=== PATIENT | female | born 1960 | race Caucasian/White ===

== ENCOUNTER → 2016-05-25 | Outpatient (REF) | payer MEDICARE, MEDICAID ==
[~2016-05-25] MED LIST: ADV250INH INH; ALLE10TA12 PO; CETI10TA PO; COUM1TAB17 PO; CRES20TA PO; DRIS50002 PO; EFFE75CA75 PO; LEVO150T7 PO; LEXA1TAB2 PO; LOVE0.8I3 SC; MAPA325T2 PO; MOME50SP; OMEP20CA3 PO; PRED10TA PO; SING10TA32 PO; TUMS500C PO; XANA0.25 PO; XOPEAER INH; ZANTTAB PO
[2016-05-25 17:03] LABS: CALCIUM LEVEL 8.5 MG/DL (8.5-10.1); CREATININE FOR GFR 1.07 MG/DL (0.55-1.02); GLOMERULAR FILTRATION RATE 56.3 (>51); MAGNESIUM LEVEL 2.1 MG/DL (1.8-2.4); POTASSIUM SERUM 3.7 MEQ/L (3.5-5.1)
== END ==
LOC: M LABDRAW1 16:36
PROVIDERS: ATTEND Physician Assistant Medical
DX: M62.838 Other muscle spasm (principal); Z79.01 Long term (current) use of anticoagulants
CPT/HCPCS: 36415; 80048; 83735; 85610; G0463

== ENCOUNTER → 2016-05-31 | Outpatient (CLI) | payer MEDICARE, MEDICAID ==
--- NOTE | 2016-06-03 06:28 | SLEEPCENT ---
DATE OF PROCEDURE: 05/31/2016 ORDERED BY: Dr. Fitzpatrick and Maricel Jaimes Nocturnal polysomnography was performed for the titration of pressure therapy in this patient with clinical diagnosis of obstructive sleep apnea syndrome confirmed by home testing revealing a respiratory event index of 32. For testing, the patient was fit with a ResMed Quattro full face mask of extra small size and 4 cm of water pressure were applied to the circuit and the lights were extinguished. 7 hours and 42 minutes of data were reviewed. There were 360 minutes of sleep identified. Sleep latency was prolonged at 68 minutes. Rapid eye movement (REM) latency was prolonged at 203. Sleep architecture improved with optimal pressure therapy with a prolonged period of REM late in the study. Overall sleep efficiency was 79%. The patient's electrocardiogram (EKG) showed a sinus rhythm with an average heart rate of 78 beats per minute. Electroencephalogram (EEG) showed mild background coarsening, no focal events, normal waveforms for awake and sleep. Respiratory events were fully palliated with CPAP at a pressure of +9. Remaining measures of sleep physiology were reasonably normal. Some background limb activity was noted however and limb movement arousal index remained elevated at 10.5. IMPRESSION: 1. Obstructive sleep apnea syndrome (G47.33). 2. Periodic limb movement disorder (G47.61). RECOMMENDATION: Nightly use of pressure therapy at 9 cm of water should be sufficient to address the patient's respiratory issues. If symptoms persist, interventions to reduce the frequency of arousals from limb activity may be helpful.
== END ==
LOC: M SLEEP 19:32
PROVIDERS: ATTEND Nurse Practitioner Adult Health
DX: G47.33 Obstructive sleep apnea (adult) (pediatric) (principal)

== ENCOUNTER → 2016-09-06 | Outpatient (CLI) | payer MEDICARE, MEDICAID ==
[~2016-09-06] VITALS: Ht 177.8 cm; Wt 136.1 kg
[~2016-09-06] MED LIST changes: +COUM1TAB19 PO; +ESCI20TA PO; +NS 1,000 ML IV SCH; +PRED1TABL PO; +PROPOFOL 200 MG/20 ML VIAL As Ordered ONE
--- NOTE | 2016-09-06 07:54 | ROOR ---
Patient Name: Carlos Saravia Procedure Date: 09/06/2016 7:29 AM Date of : 1960 Age: 56 Room: [facility] Gender: Female Note Status: Finalized Procedure: Colonoscopy to Cecum Indications: Colon cancer screening in patient at increased risk: Colorectal cancer in mother, Last colonoscopy: 2010 Providers: Doyle Quinn MD Referring MD: Graeme Fitzpatrick MD Requesting Provider: Medicines: Monitored Anesthesia Care Complications: No immediate complications. Procedure: Pre-Anesthesia Assessment: - The heart rate, respiratory rate, oxygen saturations, blood pressure, adequacy of pulmonary ventilation, and response to care were monitored throughout the procedure. The Colonoscope was introduced through the anus and advanced to the cecum, identified by appendiceal orifice and ileocecal valve. The colonoscopy was performed without difficulty. The patient tolerated the procedure well. The quality of the bowel preparation was fair. Findings: The perianal and digital rectal examinations were normal. Non-bleeding internal hemorrhoids were found during retroflexion. The hemorrhoids were small and Grade I (internal hemorrhoids that do not prolapse). Scattered small-mouthed diverticula were found in the recto-sigmoid colon, sigmoid colon and descending colon. The entire examined colon appeared normal on direct and retroflexion views. Impression: - Preparation of the colon was fair. - Non-bleeding internal hemorrhoids. - Diverticulosis in the recto-sigmoid colon, in the sigmoid colon and in the descending colon. - The entire examined colon is normal on direct and retroflexion views. - No specimens collected. - The exam was otherwise normal to the cecum. Recommendation: - Patient has a contact number available for emergencies. The signs and symptoms of potential delayed complications were discussed with the patient. Return to normal activities tomorrow. Written discharge instructions were provided to the patient. - High fiber diet. - Discharge patient to home. - Continue present medications. - Repeat colonoscopy in 5 years for screening purposes. - Return to referring physician. - The findings and recommendations were discussed with the patient's family. Doyle Quinn MD Doyle Quinn MD 09/06/2016 7:54:21 AM This report has been signed electronically. Number of Addenda: 0 Note Initiated On: 09/06/2016 7:29 AM Estimated Blood Loss: Estimated blood loss: none.
[2016-09-06 08:20] VITALS: BP 162/98
== END | disposition home or self-care (01) ==
LOC: M OPP 06:26
PROVIDERS: ATTEND Internal Medicine Gastroenterology
DX: Z12.11 Encounter for screening for malignant neoplasm of colon (principal); K64.0 First degree hemorrhoids; K57.30 Diverticulosis of large intestine without perforation or abscess without bleeding; E78.5 Hyperlipidemia, unspecified; Z86.718 Personal history of other venous thrombosis and embolism; Z86.711 Personal history of pulmonary embolism; I34.1 Nonrheumatic mitral (valve) prolapse; E03.9 Hypothyroidism, unspecified; K44.9 Diaphragmatic hernia without obstruction or gangrene; R12 Heartburn; M19.90 Unspecified osteoarthritis, unspecified site; M54.2 Cervicalgia; L50.9 Urticaria, unspecified; S81.001D Unspecified open wound, right knee, subsequent encounter; S81.002D Unspecified open wound, left knee, subsequent encounter; F41.9 Anxiety disorder, unspecified; F32.9 Major depressive disorder, single episode, unspecified; G43.909 Migraine, unspecified, not intractable, without status migrainosus; Z86.73 Personal history of transient ischemic attack (TIA), and cerebral infarction without residual deficits; Z78.0 Asymptomatic menopausal state; J45.909 Unspecified asthma, uncomplicated; G47.30 Sleep apnea, unspecified; R06.83 Snoring; R06.02 Shortness of breath; E66.9 Obesity, unspecified; Z87.442 Personal history of urinary calculi; R01.1 Cardiac murmur, unspecified; Z88.8 Allergy status to other drugs, medicaments and biological substances; Z91.040 Latex allergy status; Z88.0 Allergy status to penicillin; Z88.2 Allergy status to sulfonamides; Z88.1 Allergy status to other antibiotic agents; Z88.7 Allergy status to serum and vaccine; Z91.048 Other nonmedicinal substance allergy status; Z79.01 Long term (current) use of anticoagulants; Z79.899 Other long term (current) drug therapy; Z80.0 Family history of malignant neoplasm of digestive organs; Z80.3 Family history of malignant neoplasm of breast; Y93.9 Activity, unspecified; Y92.9 Unspecified place or not applicable; X58.XXXD Exposure to other specified factors, subsequent encounter; Y99.8 Other external cause status

== ENCOUNTER 2016-10-11 21:27 | Emergency (ER) | payer MEDICARE, MEDICAID ==
[~2016-10-11] VITALS: Ht 177.8 cm; Wt 136.3 kg
[~2016-10-11 21:27] MED LIST changes: +LEVAINH INH; -NS 1,000 ML IV SCH; -PRED10TA PO; +PRED10TA2 PO; -PROPOFOL 200 MG/20 ML VIAL As Ordered ONE; -XOPEAER INH
[2016-10-11] MEDS ORDERED: WARF05TA PO (21:44)
[2016-10-11 23:22] LABS: INR 1.91
--- NOTE | 2016-10-12 00:10 | REPUSA ---
Clinical history: Pain, swelling. Findings: There is extensive scattered thrombus throughout the left femoral popliteal venous system. Nonocclusive thrombus is seen in the left common femoral vein, extending into the greater saphenous v ein. There is partial occlusion of the left superficial femoral and popliteal veins. Impression: Scattered deep vein thrombosis throughout the left femoral popliteal venous system as described.
[2016-10-12 00:58] VITALS: BP 118/61
== END 2016-10-12 01:03 | disposition home or self-care (01) ==
LOC: M ED 22:26
DX: I82.413 Acute embolism and thrombosis of femoral vein, bilateral (principal); I10 Essential (primary) hypertension; E78.5 Hyperlipidemia, unspecified; K21.9 Gastro-esophageal reflux disease without esophagitis; J45.909 Unspecified asthma, uncomplicated; G47.30 Sleep apnea, unspecified; E66.9 Obesity, unspecified; Z86.718 Personal history of other venous thrombosis and embolism; Z79.01 Long term (current) use of anticoagulants; Z79.899 Other long term (current) drug therapy; Z88.0 Allergy status to penicillin; Z88.2 Allergy status to sulfonamides; Z88.1 Allergy status to other antibiotic agents; Z88.8 Allergy status to other drugs, medicaments and biological substances; Z91.09 Other allergy status, other than to drugs and biological substances

== ENCOUNTER → 2016-10-13 | Outpatient (REF) | payer MEDICARE, MEDICAID ==
[~2016-10-13] MED LIST changes: -LEVAINH INH; +PRED10TA PO; -PRED10TA2 PO; +WARF05TA PO; +XOPEAER INH
[2016-10-13 13:35] LABS: BASO % 0.5 % (0.0-1.0); EOS # 0.2 K/mm3 (0.0-0.50); EOS % 3.2 % (0.0-3.0); LARGE UNSTAINED CELL # 0.1 K/mm3 (0.0-0.4); LARGE UNSTAINED CELL % 1.4 % (0.0-4.0); LYMPH % 28.3 % (24.0-44.0); MEAN CORPUSCULAR HGB CONC 31.7 g/dl (32.0-36.5); MEAN CORPUSCULAR VOLUME 85.1 fl (80.0-96.0); MONO # 0.4 K/mm3 (0.0-0.8); MONO % 5.5 % (0.0-5.0); PLATELET COUNT, AUTOMATED 233 k/mm3 (150-450); WHITE BLOOD COUNT 6.6 K/mm3 (4.0-10.0)
[2016-10-13 14:01] LABS: ALBUMIN 3.2 GM/DL (3.2-5.2); ALBUMIN/GLOBULIN RATIO 0.97 (1.00-1.93); ALKALINE PHOSPHATASE 177 U/L (45-117); ALT/SGPT 39 U/L (12-78); ANION GAP 9 MEQ/L (8-16); AST/SGOT 45 U/L (15-37); BILIRUBIN,TOTAL 0.7 MG/DL (0.2-1.0); BLOOD UREA NITROGEN 8 MG/DL (7-18); CALCIUM LEVEL 8.7 MG/DL (8.5-10.1); CARBON DIOXIDE LEVEL 26 MEQ/L (21-32); CHLORIDE LEVEL 109 MEQ/L (98-107); CREATININE FOR GFR 0.91 MG/DL (0.55-1.02); FERRITIN 18 NG/ML (8-252); GLOMERULAR FILTRATION RATE > 60.0 (>51); GLUCOSE, FASTING 90 MG/DL (70-105); PERCENT SATURATION 11.9 % (13.2-37.4); POTASSIUM SERUM 3.9 MEQ/L (3.5-5.1); SODIUM LEVEL 144 MEQ/L (136-145); TOTAL IRON BINDING CAPACITY 411 UG/DL (250-450); TOTAL PROTEIN 6.5 GM/DL (6.4-8.2)
== END ==
LOC: M SFHCPLAZ 09:16
PROVIDERS: ATTEND Physician Assistant Medical
DX: Z51.81 Encounter for therapeutic drug level monitoring (principal); N18.3 Chronic kidney disease, stage 3 (moderate); E78.5 Hyperlipidemia, unspecified

== ENCOUNTER 2016-11-04 09:45 | Emergency (ER) | payer MEDICARE, MEDICAID ==
[~2016-11-04] VITALS: Ht 177.8 cm; Wt 130.9 kg
[~2016-11-04 09:45] MED LIST changes: +LEVAINH INH; -PRED10TA PO; +PRED10TA2 PO; -XOPEAER INH
[2016-11-04] MEDS ORDERED: EFFE75CA75 PO (10:09)
[2016-11-04] MEDS ORDERED: ASPIRIN 81 MG CHEW TABLET PO ONE (10:15)
[2016-11-04 10:31] LABS: BASO # 0.1 K/mm3 (0.0-0.2); BASO % 0.6 % (0.0-1.0); EOS # 0.2 K/mm3 (0.0-0.50); EOS % 2.1 % (0.0-3.0); LARGE UNSTAINED CELL # 0.1 K/mm3 (0.0-0.4); LARGE UNSTAINED CELL % 1.4 % (0.0-4.0); LYMPH # 2.3 K/mm3 (1.5-4.5); LYMPH % 25.1 % (24.0-44.0); MEAN CORPUSCULAR HEMOGLOBIN 27.1 pg (27.0-33.0); MEAN CORPUSCULAR HGB CONC 32.3 g/dl (32.0-36.5); MEAN CORPUSCULAR VOLUME 84.1 fl (80.0-96.0); MONO # 0.3 K/mm3 (0.0-0.8); MONO % 3.7 % (0.0-5.0); NEUTROPHILS # 6.2 K/mm3 (1.8-7.7); NEUTROPHILS % 67.1 % (36.0-66.0); PLATELET COUNT, AUTOMATED 263 k/mm3 (150-450); RED CELL DISTRIBUTION WIDTH 15.7 % (11.5-14.5); WHITE BLOOD COUNT 9.2 K/mm3 (4.0-10.0)
[2016-11-04 10:55] LABS: ANION GAP 8 MEQ/L (8-16); BLOOD UREA NITROGEN 14 MG/DL (7-18); CARBON DIOXIDE LEVEL 27 MEQ/L (21-32); CHLORIDE LEVEL 106 MEQ/L (98-107); CREATININE FOR GFR 1.01 MG/DL (0.55-1.02); GLOMERULAR FILTRATION RATE > 60.0 (>51); GLUCOSE, FASTING 109 MG/DL (70-105); POTASSIUM SERUM 3.9 MEQ/L (3.5-5.1); SODIUM LEVEL 141 MEQ/L (136-145)
[2016-11-04 11:55] LABS: ALBUMIN 3.2 GM/DL (3.2-5.2); ALBUMIN/GLOBULIN RATIO 0.76 (1.00-1.93); ALKALINE PHOSPHATASE 219 U/L (45-117); ALT/SGPT 37 U/L (12-78); AST/SGOT 34 U/L (15-37); BILIRUBIN,DIRECT 0.1 MG/DL (0.0-0.2); BILIRUBIN,TOTAL 0.4 MG/DL (0.2-1.0); INR 1.51; TOTAL PROTEIN 7.4 GM/DL (6.4-8.2)
--- NOTE | 2016-11-04 11:56 | REP ---
Portable chest x-ray: Sitting AP view. History: Chest pain. Findings: EKG monitoring electrodes overlie the chest. The lungs are symmetrically aerated and clear. The pleural angles are sharp. Heart size is normal. Pulmonary vasculature is not increased. No significant bony abnormality is seen. Impression: Unremarkable sitting portable chest. Signed by Hadley Mcgarry MD 11/04/2016 12:31 P
--- NOTE | 2016-11-04 12:27 | REP ---
Right upper quadrant sonography: History: However quadrant pain. Comparison study: No comparison sonography. Findings: Scanning through the right upper quadrant of the abdomen demonstrates a normal sized, thin-walled gallbladder without evidence of stone or polyp. Common bile duct is normal measuring 0.4 cm in greatest diameter. No focal liver lesion is seen. There is evidence of mild fatty infiltration of the liver. Liver size is normal. On somewhat limited views, no pancreatic abnormality is observed. No right renal abnormality is seen. There is no evidence of ascites. The right kidney measures 9.4 x 5.7 x 4.4 cm. Impression: Evidence of fatty infiltration of the liver, otherwise negative right upper quadrant sonography. Signed by Hadley Mcgarry MD 11/04/2016 12:19 P
[2016-11-04] MEDS ORDERED: ACETAMINOPHEN TAB 650MG DOSE (2X325MG) As Ordered ONE (12:28)
[2016-11-04] MEDS ORDERED: ACETAMINOPHEN TAB 650MG DOSE (2X325MG) PO ONE (12:30)
[2016-11-04] MEDS ORDERED: ISOVUE-370 76% 100ML VIAL (Q9967) As Ordered ONE (13:26)
--- NOTE | 2016-11-04 14:18 | REP ---
CT ANGIOGRAM OF THE CHEST: TECHNIQUE: Axial contrast enhanced images from the thoracic inlet to the upper abdomen using 100 mL Isovue 370 intravenous contrast material with multiplanar reformations. I do not see evidence of a pulmonary embolism. There is no thoracic aortic aneurysm or dissection. No mediastinal or hilar adenopathy is seen. The heart is normal in size. There is no pericardial effusion. There is a small right pleural effusion. Focal posteriorly located subpleural parenchymal opacity in the right upper lobe measures approximately 1.6 cm in diameter. I suspect this represents an area of infiltrate. Nonspecific mild hazy diffuse ground-glass opacity is seen throughout both lungs. There is a calcified granuloma in the left lower lobe. There is a small hiatal hernia. Other visualized upper abdominal structures are unremarkable. IMPRESSION: No CT evidence of pulmonary embolism. Focal somewhat rounded ill-defined parenchymal opacity in the right upper lobe posteriorly, probably represents a focal infiltrate 1.6 cm in diameter. However followup is recommended to rule out a mass. There is a small right effusion. There is a small hiatal hernia. Signed by Rene Tavarez MD 11/04/2016 05:25 P
[2016-11-04 16:06] VITALS: BP 123/75
--- NOTE | 2016-11-04 21:32 | ECGEPIP ---
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
== END 2016-11-04 16:08 | disposition home or self-care (01) ==
LOC: M ED 09:45
DX: R07.9 Chest pain, unspecified (principal); R06.02 Shortness of breath; Z77.22 Contact with and (suspected) exposure to environmental tobacco smoke (acute) (chronic)
CPT/HCPCS: 71010; 71275; 76705; 80048; 80076; 82550; 82553; 83690; 83880; 84484; 85025; 85610; 93005; 93041; 94760; 99285; Q9967

== ENCOUNTER → 2016-11-08 | Outpatient (REF) | payer MEDICARE, MEDICAID ==
[2016-11-08 16:13] LABS: BASO % 0.3 % (0.0-1.0); EOS # 0.2 K/mm3 (0.0-0.50); EOS % 2.1 % (0.0-3.0); LARGE UNSTAINED CELL # 0.1 K/mm3 (0.0-0.4); LARGE UNSTAINED CELL % 1.3 % (0.0-4.0); LYMPH # 2.6 K/mm3 (1.5-4.5); MEAN CORPUSCULAR HEMOGLOBIN 26.8 pg (27.0-33.0); MEAN CORPUSCULAR HGB CONC 31.4 g/dl (32.0-36.5); MEAN CORPUSCULAR VOLUME 85.4 fl (80.0-96.0); MONO # 0.4 K/mm3 (0.0-0.8); MONO % 4.4 % (0.0-5.0); NEUTROPHILS # 5.1 K/mm3 (1.8-7.7); NEUTROPHILS % 60.9 % (36.0-66.0); PLATELET COUNT, AUTOMATED 292 k/mm3 (150-450); RED CELL DISTRIBUTION WIDTH 15.6 % (11.5-14.5); RETIC HEMOGLOBIN CONTENT CHr 27.7 PG (24-36); RETICULOCYTE ABSOLUTE ADVIA212 93 x10(9)/L (17-77); WHITE BLOOD COUNT 8.3 K/mm3 (4.0-10.0)
[2016-11-08 16:17] LABS: INR 1.92
[2016-11-08 16:29] LABS: FERRITIN 16 NG/ML (8-252); FREE T4 1.11 NG/DL (0.76-1.46); PERCENT SATURATION 11.2 % (13.2-37.4); TOTAL IRON BINDING CAPACITY 394 UG/DL (250-450); TOTAL PROTEIN 6.6 GM/DL (6.4-8.2)
[2016-11-09 13:02] LABS: ALBUMIN 3.35 GM/DL (3.29-5.55); ALBUMIN % 50.7 % (55.8-66.1); GAMMA GLOBULIN % 11.2 % (11.1-18.8)
[2016-11-10 14:15] LABS: H PYLORI SERUM QUANT IgG ABY <0.9 U/mL (0.0-0.8)
== END ==
LOC: M LABDRAW1 15:34
PROVIDERS: ATTEND Family Medicine
DX: D50.9 Iron deficiency anemia, unspecified (principal); E03.9 Hypothyroidism, unspecified; R73.01 Impaired fasting glucose; Z51.81 Encounter for therapeutic drug level monitoring; Z79.01 Long term (current) use of anticoagulants
CPT/HCPCS: 36415; 82728; 83036; 83550; 84165; 84439; 84443; 85025; 85046; 85610; 85730; 86256; 86677; G0463

== ENCOUNTER → 2016-12-09 | Outpatient (CLI) | payer MEDICARE, MEDICAID ==
--- NOTE | 2016-12-09 17:35 | REP ---
BILATERAL MAMMOGRAM: Family history of breast cancer in sister. MLO and CC views of both breasts were performed. I suspect multiple clustered pleomorphic microcalcifications in the upper and inner right breast. No other mass or clustered microcalcifications are seen bilaterally. IMPRESSION: There appear to be clustered microcalcifications in the upper inner right breast. Recommend magnification views to further evaluate. ACR 0 incomplete. BI-RADS/ACR category 0 mammogram, incomplete. Additional imaging and/or prior images are needed before a final assessment can be assigned. This mammogram was interpreted with the aid of an FDA-approved computer-aided detection system. The patient states she had a clinical breast exam in 11/2016. The patient letter being requested is M0.
== END ==
LOC: M WHC 15:09
PROVIDERS: ATTEND Family Medicine
DX: R92.2 Inconclusive mammogram (principal); Z12.4 Encounter for screening for malignant neoplasm of cervix; Z80.41 Family history of malignant neoplasm of ovary; Z80.3 Family history of malignant neoplasm of breast; Z78.0 Asymptomatic menopausal state
CPT/HCPCS: 87624; G0101; G0123; G0202

== ENCOUNTER → 2016-12-09 | Outpatient (REF) | payer MEDICARE, MEDICAID | LOC: M SFHCWAGY 15:10 | PROVIDERS: ATTEND Nurse Practitioner Women's Health | DX: Z01.419 Encounter for gynecological examination (general) (routine) without abnormal findings (principal); Z11.51 Encounter for screening for human papillomavirus (HPV) | CPT/HCPCS: 87624; G0123 ==

== ENCOUNTER → 2016-12-20 | Outpatient (CLI) | payer MEDICARE, MEDICAID ==
--- NOTE | 2016-12-20 08:39 | REP ---
Digital diagnostic unilateral right breast mammography with CAD: History: Screening mammography December 09, 2016 is BIRADS category 0 because of a grouping of microcalcifications. Diagnostic imaging is recommended. Comparison is also made with mammography dated November 12, 2015, October 09, 2014. Mammographic findings: Magnified focal spot compression CC, true MLO, and MLO views of the right breast confirm the presence of a polymorphic grouping of microcalcifications in the superior and medial quadrant of the right breast. This is new. No soft tissue component is seen. Breast parenchyma is otherwise predominately fat replaced. Impression: BIRADS category 4 suspicious right breast mammography. Stereotactic needle biopsy recommended for grouping of microcalcifications in the superior and medial quadrant. BI-RADS/ACR category 4 mammogram. Suspicious abnormality - biopsy should be considered. Usually requires biopsy. This mammogram was interpreted with the aid of an FDA-approved computer-aided detection system. The patient states she had a clinical breast exam in November 2016 The patient letter being requested is M4. Signed by Hadley Mcgarry MD 12/20/2016 09:13 A
== END ==
LOC: M RAD 07:38
PROVIDERS: ATTEND Family Medicine
DX: R92.0 Mammographic microcalcification found on diagnostic imaging of breast (principal); Z51.81 Encounter for therapeutic drug level monitoring; Z79.01 Long term (current) use of anticoagulants
CPT/HCPCS: 85610; G0206; G0463

== ENCOUNTER → 2017-01-04 | Outpatient (REF) | payer MEDICARE, MEDICAID ==
[2017-01-04 13:46] LABS: INR 1.12
== END ==
LOC: M SFHCPLAZ 10:00
PROVIDERS: ATTEND Family Medicine
DX: Z86.711 Personal history of pulmonary embolism (principal); Z51.81 Encounter for therapeutic drug level monitoring

== ENCOUNTER → 2017-01-05 | Outpatient (CLI) | payer MEDICARE, MEDICAID ==
[~2017-01-05] MED LIST changes: +CHLOROPROCAINE 2 % INJ PRES.FREE 20 ML VIAL (J2400) SQ ONE
--- NOTE | 2017-01-05 13:35 | REP ---
DIGITAL DIAGNOSTIC UNILATERAL RIGHT BREAST MAMMOGRAPHY WITH CAD: HISTORY: Marker clip placement views status post stereotactic needle biopsy for microcalcification. Comparison mammography December 11, 2016. MAMMOGRAPHIC FINDINGS: CC and true MLO views of the right breast demonstrate that the marker clip is in good position adjacent to the remaining microcalcifications from the target grouping. IMPRESSION: Marker clip in good position. Signed by Hadley Mcgarry MD 01/05/2017 03:51 P
--- NOTE | 2017-01-05 13:54 | REP ---
SPECIMEN RADIOGRAPHY RIGHT BREAST: HISTORY: The patient is status post stereotactic needle biopsy procedure right breast for microcalcifications. Comparison mammography December 09 and December 20, 2016. FINDINGS: Specimen radiography demonstrates microcalcifications from the target grouping in four of the six removed specimens. IMPRESSION: Specimen radiography demonstrates microcalcifications from the target grouping. Signed by Hadley Mcgarry MD 01/05/2017 03:52 P
--- NOTE | 2017-01-06 15:14 | REP ---
STEREOTACTIC RIGHT BREAST BIOPSY The procedure was performed under the direct supervision of Dr. Mcgarry The patient has a history of and polymorphic grouping of microcalcifications in the superior and medial quadrant of the right breast seen on a previous mammogram dated 12/20/2016. The risks and benefits of the procedure were explained to the patient and informed consent was obtained. A cranial caudal approach was utilized. The calcifications were localized using stereotactic mammographic guidance. 2% Chloroprocaine was used as a local anesthetic. An 8 gauge, suction assisted Mammotome needle was inserted and 5 core biopsy samples were obtained. Specimen radiograph demonstrates the presence of calcifications to be within the specimen. A marker clip was placed at the biopsy site. The patient tolerated the procedure well and there were no immediate complications. After the appropriate amount of monitored convalescence, the patient was discharged from the department. Reviewed by SANNA Dietrich 01/06/2017 08:35 ASigned by Hadley Mcgarry MD 01/06/2017 03:05 P
== END ==
LOC: M RADPRO 12:21
PROVIDERS: ATTEND Physician Assistant Medical
DX: D24.1 Benign neoplasm of right breast (principal); Z85.828 Personal history of other malignant neoplasm of skin; Z88.1 Allergy status to other antibiotic agents; Z88.8 Allergy status to other drugs, medicaments and biological substances; Z88.5 Allergy status to narcotic agent; Z88.4 Allergy status to anesthetic agent; Z88.0 Allergy status to penicillin; Z88.7 Allergy status to serum and vaccine; Z88.2 Allergy status to sulfonamides; Z91.040 Latex allergy status; Z91.048 Other nonmedicinal substance allergy status; Z79.01 Long term (current) use of anticoagulants; Z79.899 Other long term (current) drug therapy
CPT/HCPCS: 19081; 88305; J2400

== ENCOUNTER → 2017-01-31 | Outpatient (REF) | payer MEDICARE, MEDICAID ==
[~2017-01-31] MED LIST changes: -CHLOROPROCAINE 2 % INJ PRES.FREE 20 ML VIAL (J2400) SQ ONE
[2017-01-31 13:43] LABS: BASO # 0.1 10^3/uL (0.0-0.2); BASO % 0.6 % (0.0-1.0); EOS # 0.1 10^3/uL (0.0-0.50); EOS % 1.8 % (0.0-3.0); IMMATURE GRANULOCYTE % 0.1 % (0-0); LYMPH # 3.1 10^3/uL (1.5-4.5); LYMPH % 39.9 % (24.0-44.0); MEAN CORPUSCULAR HEMOGLOBIN 25.1 pg (27.0-33.0); MEAN CORPUSCULAR HGB CONC 30.4 g/dl (32.0-36.5); MEAN CORPUSCULAR VOLUME 82.8 fl (80.0-96.0); MONO # 0.5 10^3/uL (0.0-0.8); MONO % 6.4 % (0.0-5.0); NEUTROPHILS % 51.2 % (36.0-66.0); PLATELET COUNT, AUTOMATED 279 10^3/uL (150-450); RED CELL DISTRIBUTION WIDTH 15.9 % (11.5-14.5); WHITE BLOOD COUNT 7.8 10^3/uL (4.0-10.0)
[2017-01-31 14:00] LABS: ALBUMIN 3.2 GM/DL (3.2-5.2); ALBUMIN/GLOBULIN RATIO 0.86 (1.00-1.93); ALKALINE PHOSPHATASE 229 U/L (45-117); ALT/SGPT 49 U/L (12-78); ANION GAP 9 MEQ/L (8-16); AST/SGOT 42 U/L (15-37); BILIRUBIN,TOTAL 0.5 MG/DL (0.2-1.0); BLOOD UREA NITROGEN 13 MG/DL (7-18); CALCIUM LEVEL 8.4 MG/DL (8.5-10.1); CARBON DIOXIDE LEVEL 26 MEQ/L (21-32); CHLORIDE LEVEL 107 MEQ/L (98-107); CREATININE FOR GFR 1.01 MG/DL (0.55-1.02); FERRITIN 11 NG/ML (8-252); GLOMERULAR FILTRATION RATE > 60.0 (>51); GLUCOSE, FASTING 86 MG/DL (70-105); POTASSIUM SERUM 3.9 MEQ/L (3.5-5.1); SODIUM LEVEL 142 MEQ/L (136-145); TOTAL IRON BINDING CAPACITY 394 UG/DL (250-450); TOTAL PROTEIN 6.9 GM/DL (6.4-8.2)
== END ==
LOC: M SFHCPLAZ 10:55
PROVIDERS: ATTEND Family Medicine
DX: E78.5 Hyperlipidemia, unspecified (principal); R73.01 Impaired fasting glucose; E55.9 Vitamin D deficiency, unspecified; Z79.899 Other long term (current) drug therapy; D50.9 Iron deficiency anemia, unspecified; Z86.711 Personal history of pulmonary embolism

== ENCOUNTER → 2017-02-06 | Outpatient (CLI) | payer MEDICARE, MEDICAID ==
[~2017-02-06] MED LIST changes: +ISOVUE-370 76% 100ML VIAL (Q9967) As Ordered ONE
--- NOTE | 2017-02-06 11:20 | REP ---
CT CHEST WITH IV CONTRAST: TECHNIQUE: Axial contrast enhanced images from the thoracic inlet to the upper abdomen using 100 mL Isovue 370 intravenous contrast material with multiplanar reformations. COMPARISON: 11/04/2016 Previously noted rounded opacity in the posterior right upper lobe has resolved, representing resolution of atelectasis or infiltrate. No suspicious nodule is seen in either lung. There is a tiny calcified granuloma in each lower lobe. Thoracic aorta is normal in caliber with no aneurysm. There is no cardiomegaly. There is no pleural or pericardial effusion. No mediastinal or hilar adenopathy is seen. There is a small hiatal hernia. IMPRESSION: No persistent opacity in the right upper lobe. Tiny calcified granuloma is seen in each lung base. There are also tiny calcified mediastinal lymph nodes present without suspicious adenopathy. Small hiatal hernia. Signed by Rene Tavarez MD 02/07/2017 07:50 P
== END ==
LOC: M RAD 08:26
PROVIDERS: ATTEND Family Medicine
DX: R91.1 Solitary pulmonary nodule (principal); K44.9 Diaphragmatic hernia without obstruction or gangrene
CPT/HCPCS: 71260; Q9967

== ENCOUNTER → 2017-03-27 | Outpatient (REF) | payer MEDICARE, MEDICAID ==
[~2017-03-27] MED LIST changes: -ISOVUE-370 76% 100ML VIAL (Q9967) As Ordered ONE
== END ==
LOC: M SFHCPLAZ 15:58
PROVIDERS: ATTEND Physician Assistant Medical
DX: Z51.81 Encounter for therapeutic drug level monitoring (principal); Z79.899 Other long term (current) drug therapy

== ENCOUNTER → 2017-04-06 | Outpatient (CLI) | payer MEDICARE, MEDICAID ==
--- NOTE | 2017-04-13 21:03 | SLEEPCENT ---
DATE OF PROCEDURE: 04/06/2017 ORDERING PROVIDER: Maricel Jaimes NP Nocturnal polysomnography was performed for retitration of pressure therapy in this patient with obstructive sleep apnea syndrome. For testing, a ResMed Air fit F10 full face mask of small size was used. 9 cm of water pressure was initially applied to the circuit and the lights were extinguished. 7 hours and 52 minutes of data were reviewed. There were 274 minutes of sleep identified. Sleep latency was prolonged at 71 minutes. Rapid eye movement (REM) latency was short at 36 minutes. Sleep architecture remains somewhat fragmented with poor progression with only 1 REM cycle noted. Overall sleep efficiency was 59.2%. Patient's EKG showed a sinus rhythm with an average heart rate of 72 beats per minute. EEG showed coarsening in background. No focal events were appreciated with some artifact and normal wave forms for wake and sleep stages. Respiratory events were found best palliated with CPAP at a pressure of +14. Some limb activity was noted. There were four trains of 30 events. Limb movement arousal index 16.6. IMPRESSION: 1. Obstructive sleep apnea syndrome (G47.33). 2. Periodic limb movement disorder (G47.61). Limb movement arousal index was 16.6. RECOMMENDATIONS: Nightly use of pressure therapy at 14 cm of water should be sufficient to address the patients respiratory events. Given the frequency of limb activity, interventions to reduce the frequency or arousal from limb movements may be necessary as well.
== END ==
LOC: M SLEEP 19:32
PROVIDERS: ATTEND Nurse Practitioner Adult Health
DX: G47.33 Obstructive sleep apnea (adult) (pediatric) (principal); G47.61 Periodic limb movement disorder

== ENCOUNTER → 2017-06-26 | Outpatient (REF) | payer MEDICARE, MEDICAID ==
[2017-06-26 11:39] LABS: BASO % 0.4 % (0.0-1.0); EOS # 0.1 10^3/uL (0.0-0.50); EOS % 1.2 % (0.0-3.0); HEMATOCRIT 40.6 % (36.0-47.0); HEMOGLOBIN 12.5 g/dl (12.0-16.0); IMMATURE GRANULOCYTE % 0.2 % (0-3.0); LYMPH # 3.2 10^3/uL (1.5-4.5); LYMPH % 37.8 % (24.0-44.0); MEAN CORPUSCULAR HEMOGLOBIN 25.6 pg (27.0-33.0); MEAN CORPUSCULAR HGB CONC 30.8 g/dl (32.0-36.5); MONO # 0.5 10^3/uL (0.0-0.8); MONO % 6.1 % (0.0-5.0); NEUTROPHILS # 4.7 10^3/uL (1.8-7.7); NEUTROPHILS % 54.3 % (36.0-66.0); PLATELET COUNT, AUTOMATED 245 10^3/uL (150-450); RED BLOOD COUNT 4.89 10^6/uL (4.00-5.40); RED CELL DISTRIBUTION WIDTH 15.9 % (11.5-14.5); WHITE BLOOD COUNT 8.6 10^3/uL (4.0-10.0)
[2017-06-26 12:24] LABS: PTH INTACT 99.5 PG/ML (18.5-88.0); TOTAL 25(OH) VITAMIN D 59.7 NG/ML (30.0-100.0); VITAMIN B12 LEVEL 268 PG/ML (247-911)
[2017-06-26 12:31] LABS: ALBUMIN 3.4 GM/DL (3.2-5.2); ALBUMIN/GLOBULIN RATIO 1.03 (1.00-1.93); ALKALINE PHOSPHATASE 214 U/L (45-117); ALT/SGPT 26 U/L (12-78); ANION GAP 7 MEQ/L (8-16); AST/SGOT 23 U/L (7-37); BILIRUBIN,TOTAL 0.5 MG/DL (0.2-1.0); BLOOD UREA NITROGEN 9 MG/DL (7-18); CALCIUM LEVEL 8.5 MG/DL (8.5-10.1); CARBON DIOXIDE LEVEL 29 MEQ/L (21-32); CHLORIDE LEVEL 109 MEQ/L (98-107); CREATININE FOR GFR 0.87 MG/DL (0.55-1.30); FREE T4 0.85 NG/DL (0.76-1.46); GLOMERULAR FILTRATION RATE > 60.0 (>51); GLUCOSE, FASTING 89 MG/DL (70-100); SODIUM LEVEL 145 MEQ/L (136-145); TOTAL PROTEIN 6.7 GM/DL (6.4-8.2)
[2017-06-26 12:49] LABS: INR 2.84; PROTHROMBIN TIME 31.1 SECONDS (12.4-14.5)
[2017-06-26 14:13] LABS: ESTIMATED AVERAGE GLUCOSE 114 MG/DL (60-110); HEMOGLOBIN A1c 5.6 %
== END ==
LOC: M SFHCPLAZ 09:40
DX: D50.9 Iron deficiency anemia, unspecified (principal); N18.3 Chronic kidney disease, stage 3 (moderate); E03.9 Hypothyroidism, unspecified; R73.01 Impaired fasting glucose
CPT/HCPCS: 84443

== ENCOUNTER → 2017-08-01 | Outpatient (REF) | payer MEDICARE, MEDICAID ==
[2017-08-08 10:57] LABS: UR KIDNEY STONE INTERP See Separate Report
== END ==
LOC: M SFHCPLAZ 11:12
DX: G56.01 Carpal tunnel syndrome, right upper limb (principal)
CPT/HCPCS: 82140

== ENCOUNTER → 2017-09-05 | Outpatient (REF) | payer MEDICARE, MEDICAID ==
[2017-09-05 11:58] LABS: INR 1.72; PROTHROMBIN TIME 20.7 SECONDS (12.4-14.5)
[2017-09-05 12:13] LABS: FREE T4 1.49 NG/DL (0.76-1.46)
== END ==
LOC: M SFHCPLAZ 09:33
DX: Z51.81 Encounter for therapeutic drug level monitoring (principal); G56.01 Carpal tunnel syndrome, right upper limb; Z79.01 Long term (current) use of anticoagulants
CPT/HCPCS: 84443

== ENCOUNTER → 2017-09-12 | Outpatient (CLI) | payer MEDICARE, MEDICAID | LOC: M RAD 15:17 | DX: N20.0 Calculus of kidney (principal) | CPT/HCPCS: 74176 ==

== ENCOUNTER → 2017-10-03 | Outpatient (REF) | payer MEDICARE, MEDICAID ==
[2017-10-03 12:16] LABS: INR 2.21; PROTHROMBIN TIME 25.3 SECONDS (12.4-14.5)
== END ==
LOC: M SFHCPLAZ 09:17
DX: Z51.81 Encounter for therapeutic drug level monitoring (principal)
CPT/HCPCS: 85610

== ENCOUNTER → 2017-10-06 | Outpatient (CLI) | payer MEDICARE, MEDICAID | LOC: M RAD 10:16 | DX: I82.412 Acute embolism and thrombosis of left femoral vein (principal); I82.432 Acute embolism and thrombosis of left popliteal vein; M71.22 Synovial cyst of popliteal space [Baker], left knee; R60.0 Localized edema | CPT/HCPCS: 93971 ==

== ENCOUNTER → 2017-10-06 | Outpatient (CLI) | payer MEDICARE, MEDICAID ==
[2017-10-06 19:47] LABS: D-DIMER QUANT 563.9 ng/ml (<500)
== END ==
LOC: M WUC 18:10
DX: R60.0 Localized edema (principal)
CPT/HCPCS: 36415

== ENCOUNTER → 2017-11-06 | Outpatient (REF) | payer MEDICARE, MEDICAID ==
[2017-11-06 15:59] LABS: BASO % 0.5 % (0.0-1.0); EOS # 0.1 10^3/uL (0.0-0.50); EOS % 1.5 % (0.0-3.0); HEMATOCRIT 39.9 % (36.0-47.0); HEMOGLOBIN 12.4 g/dl (12.0-15.5); IMMATURE GRANULOCYTE % 0.3 % (0-3.0); LYMPH # 3.2 10^3/uL (1.5-4.5); LYMPH % 40.7 % (24.0-44.0); MEAN CORPUSCULAR HEMOGLOBIN 25.9 pg (27.0-33.0); MEAN CORPUSCULAR HGB CONC 31.1 g/dl (32.0-36.5); MEAN CORPUSCULAR VOLUME 83.5 fl (80.0-96.0); MONO # 0.5 10^3/uL (0.0-0.8); MONO % 6.1 % (0.0-5.0); NEUTROPHILS % 50.9 % (36.0-66.0); PLATELET COUNT, AUTOMATED 249 10^3/uL (150-450); RED BLOOD COUNT 4.78 10^6/uL (4.00-5.40); RED CELL DISTRIBUTION WIDTH 15.1 % (11.5-14.5); RETIC HEMOGLOBIN EQUIVALENT 27.4 pg (24-36); RETICULOCYTE # 88.4 10^9/L (17-77); RETICULOCYTE % 1.9 % (0.5-1.5); WHITE BLOOD COUNT 7.8 10^3/uL (4.0-10.0)
[2017-11-06 16:14] LABS: PTH INTACT 100.8 PG/ML (18.5-88.0); TOTAL 25(OH) VITAMIN D 65.9 NG/ML (30.0-100.0)
[2017-11-06 16:17] LABS: INR 2.08; PROTHROMBIN TIME 23.8 SECONDS (12.1-14.4)
[2017-11-06 16:18] LABS: PARTIAL THROMBOPLASTIN TIME 34.7 SECONDS (25.4-37.6)
[2017-11-06 16:20] LABS: ALBUMIN 3.2 GM/DL (3.2-5.2); ALBUMIN/GLOBULIN RATIO 0.97 (1.00-1.93); ALKALINE PHOSPHATASE 232 U/L (45-117); ALT/SGPT 29 U/L (12-78); ANION GAP 11 MEQ/L (8-16); AST/SGOT 24 U/L (7-37); BILIRUBIN,TOTAL 0.5 MG/DL (0.2-1.0); BLOOD UREA NITROGEN 8 MG/DL (7-18); CALCIUM LEVEL 8.8 MG/DL (8.5-10.1); CARBON DIOXIDE LEVEL 24 MEQ/L (21-32); CHLORIDE LEVEL 109 MEQ/L (98-107); CHOLESTEROL LEVEL 156 MG/DL (<200); CPK CREATINE PHOSPHOKINASE 57 U/L (26-192); CREATININE FOR GFR 0.98 MG/DL (0.55-1.30); FREE T4 1.64 NG/DL (0.76-1.46); GLOMERULAR FILTRATION RATE > 60.0 (>51); GLUCOSE, FASTING 106 MG/DL (70-100); HDL CHOLESTEROL 50 MG/DL (>40); LDL CHOLESTEROL 71.6 MG/DL (<100); NON-HDL-C 106 MG/DL; POTASSIUM SERUM 3.6 MEQ/L (3.5-5.1); SODIUM LEVEL 144 MEQ/L (136-145); THYROID STIMULATING HORMONE 0.047 uIU/ML (0.358-3.740); TOTAL PROTEIN 6.5 GM/DL (6.4-8.2); TRIGLYCERIDES LEVEL 172 MG/DL (<150)
[2017-11-06 16:37] LABS: ESTIMATED AVERAGE GLUCOSE 108 MG/DL (60-110); HEMOGLOBIN A1c 5.4 %
== END ==
LOC: M SFHCPLAZ 11:12
DX: E53.8 Deficiency of other specified B group vitamins (principal); E78.5 Hyperlipidemia, unspecified; E55.9 Vitamin D deficiency, unspecified; R73.01 Impaired fasting glucose; Z86.711 Personal history of pulmonary embolism
CPT/HCPCS: 82550

== ENCOUNTER → 2017-11-27 | Outpatient (REF) | payer MEDICARE, MEDICAID ==
[2017-11-27 16:15] LABS: APPEARANCE, URINE CLOUDY (CLEAR); BACTERIA, URINE AUTO 1+ (NEGATIVE); BILIRUBIN, URINE AUTO NEGATIVE (NEGATIVE); BLOOD, URINE BLOOD 3+ (NEGATIVE); COLOR, URINE YELLOW (YELLOW); GLUCOSE, URINE (UA) AUTO NEGATIVE (NEGATIVE); KETONE, URINE AUTO NEGATIVE (NEGATIVE); LEUKOCYTE ESTERASE, URINE AUTO 2+ (NEGATIVE); MUCUS, URINE SMALL (NEGATIVE); NITRITE, URINE AUTO NEGATIVE (NEGATIVE); PROTEIN, URINE AUTO 1+ mg/dL (NEGATIVE); RBC, URINE AUTO 49 /HPF (0-3); SPECIFIC GRAVITY URINE AUTO 1.024 (1.002-1.035); SQUAMOUS EPITHELIAL CELL UR AU 5 /HPF (0-6); TRANSITIONAL EPITHELIAL AUTO <1 /HPF; UROBILINOGEN, URINE AUTO 0.2 mg/dL (0.0-2.0); WBC, URINE AUTO 88 /HPF (0-3)
== END ==
LOC: M LAB REF 15:45
DX: R73.01 Impaired fasting glucose (principal)
CPT/HCPCS: 81001

== ENCOUNTER 2017-11-29 03:02 | Emergency (ER) | payer MEDICARE, MEDICAID ==
[2017-11-29 04:53] LABS: KETONE, URINE AUTO RFX NEGATIVE (NEGATIVE); MUCUS, URINE RFX SMALL (NEGATIVE); NITRITE, URINE AUTO RFX NEGATIVE (NEGATIVE); RBC, URINE AUTO RFX TNTC /HPF (0-3); SPECIFIC GRAVITY UR AUTO RFX 1.023 (1.002-1.035); SQUAM EPITHELIAL CELL UR AURFX 15 /HPF (0-6)
[2017-11-29 04:55] LABS: LEUKOCYTE ESTERASE UR AUTO RFX 3+ (NEGATIVE); WBC, URINE AUTO RFX TNTC /HPF (0-3)
[2017-11-29] MEDS: NITROFURANTOIN (MACROBID) 100 MG CAP PO (05:23)
== END 2017-11-29 05:34 | disposition home or self-care (01) ==
LOC: M ED 03:02
DX: N30.91 Cystitis, unspecified with hematuria (principal); Z86.711 Personal history of pulmonary embolism; Z86.718 Personal history of other venous thrombosis and embolism; Z79.899 Other long term (current) drug therapy; Z79.01 Long term (current) use of anticoagulants; Z79.51 Long term (current) use of inhaled steroids; Z79.890 Hormone replacement therapy; Z88.0 Allergy status to penicillin; Z88.2 Allergy status to sulfonamides; Z88.8 Allergy status to other drugs, medicaments and biological substances; Z91.040 Latex allergy status
CPT/HCPCS: 81001

== ENCOUNTER → 2017-12-11 | Outpatient (CLI) | payer MEDICARE, MEDICAID | LOC: M WHC 10:03 | DX: Z12.31 Encounter for screening mammogram for malignant neoplasm of breast (principal); M85.80 Other specified disorders of bone density and structure, unspecified site; E55.9 Vitamin D deficiency, unspecified | CPT/HCPCS: 77067 ==

== ENCOUNTER → 2017-12-19 | Outpatient (CLI) | payer MEDICARE, MEDICAID | LOC: M RAD 11:52 | DX: R31.0 Gross hematuria (principal) | CPT/HCPCS: 76775 ==

== ENCOUNTER → 2018-03-13 | Outpatient (REF) | payer MEDICARE, MEDICAID ==
[2018-03-13 11:45] LABS: APPEARANCE, URINE HAZY (CLEAR); BACTERIA, URINE AUTO NEGATIVE (NEGATIVE); BILIRUBIN, URINE AUTO NEGATIVE (NEGATIVE); BLOOD, URINE BLOOD 1+ (NEGATIVE); COLOR, URINE YELLOW (YELLOW); GLUCOSE, URINE (UA) AUTO NEGATIVE (NEGATIVE); KETONE, URINE AUTO NEGATIVE (NEGATIVE); LEUKOCYTE ESTERASE, URINE AUTO TRACE (NEGATIVE); MUCUS, URINE SMALL (NEGATIVE); NITRITE, URINE AUTO NEGATIVE (NEGATIVE); PROTEIN, URINE AUTO NEGATIVE (NEGATIVE); RBC, URINE AUTO 3 /HPF (0-3); SPECIFIC GRAVITY URINE AUTO 1.016 (1.002-1.035); SQUAMOUS EPITHELIAL CELL UR AU 2 /HPF (0-6); UROBILINOGEN, URINE AUTO 0.2 mg/dL (0.0-2.0); WBC, URINE AUTO 5 /HPF (0-3)
[2018-03-13 11:49] LABS: BASO % 0.3 % (0.0-1.0); EOS # 0.1 10^3/uL (0.0-0.50); EOS % 1.6 % (0.0-3.0); HEMATOCRIT 40.9 % (36.0-47.0); HEMOGLOBIN 12.5 g/dl (12.0-15.5); IMMATURE GRANULOCYTE % 0.1 % (0-3.0); LYMPH % 45.6 % (24.0-44.0); MEAN CORPUSCULAR HEMOGLOBIN 25.7 pg (27.0-33.0); MEAN CORPUSCULAR HGB CONC 30.6 g/dl (32.0-36.5); MONO # 0.4 10^3/uL (0.0-0.8); NEUTROPHILS # 4.2 10^3/uL (1.8-7.7); NEUTROPHILS % 47.4 % (36.0-66.0); PLATELET COUNT, AUTOMATED 277 10^3/uL (150-450); RED BLOOD COUNT 4.87 10^6/uL (4.00-5.40); RED CELL DISTRIBUTION WIDTH 15.7 % (11.5-14.5); RETIC HEMOGLOBIN EQUIVALENT 26.2 pg (24-36); RETICULOCYTE # 81.8 10^9/L (17-77); RETICULOCYTE % 1.7 % (0.5-1.5); WHITE BLOOD COUNT 8.9 10^3/uL (4.0-10.0)
[2018-03-13 12:01] LABS: ALBUMIN 3.2 GM/DL (3.2-5.2); ALBUMIN/GLOBULIN RATIO 0.91 (1.00-1.93); ALKALINE PHOSPHATASE 224 U/L (45-117); ALT/SGPT 25 U/L (12-78); ANION GAP 11 MEQ/L (8-16); AST/SGOT 20 U/L (7-37); BILIRUBIN,TOTAL 0.5 MG/DL (0.2-1.0); BLOOD UREA NITROGEN 16 MG/DL (7-18); CALCIUM LEVEL 8.6 MG/DL (8.5-10.1); CARBON DIOXIDE LEVEL 24 MEQ/L (21-32); CHLORIDE LEVEL 108 MEQ/L (98-107); CREATININE FOR GFR 0.99 MG/DL (0.55-1.30); FREE T4 1.48 NG/DL (0.76-1.46); GLOMERULAR FILTRATION RATE > 60.0 (>51); GLUCOSE, FASTING 121 MG/DL (70-100); SODIUM LEVEL 143 MEQ/L (136-145); THYROID STIMULATING HORMONE 0.162 uIU/ML (0.358-3.740); TOTAL PROTEIN 6.7 GM/DL (6.4-8.2)
[2018-03-13 12:02] LABS: PROTHROMBIN TIME 28.4 SECONDS (12.1-14.4)
[2018-03-13 12:03] LABS: PARTIAL THROMBOPLASTIN TIME 39.8 SECONDS (25.4-37.6)
[2018-03-13 12:19] LABS: ESTIMATED AVERAGE GLUCOSE 117 MG/DL (60-110); HEMOGLOBIN A1c 5.7 %
== END ==
LOC: M SFHCPLAZ 09:16
DX: N18.3 Chronic kidney disease, stage 3 (moderate) (principal); E03.9 Hypothyroidism, unspecified; R73.01 Impaired fasting glucose; E53.8 Deficiency of other specified B group vitamins; Z86.711 Personal history of pulmonary embolism; R31.0 Gross hematuria
CPT/HCPCS: 83735

== ENCOUNTER → 2018-04-20 | Outpatient (REF) | payer MEDICARE, MEDICAID ==
[~2018-04-20] MED LIST changes: -DRIS50002 PO; +DRIS50003 PO; +EFFE75CA2 PO; -EFFE75CA75 PO; +MACR100C43 PO
== END ==
LOC: M SFHCPLAZ 13:47
PROVIDERS: ATTEND Family Medicine
DX: L57.0 Actinic keratosis (principal)
CPT/HCPCS: 11100; 88305; G0463

== ENCOUNTER → 2018-06-01 | Outpatient (REF) | payer MEDICARE, MEDICAID ==
[2018-06-01 13:31] LABS: INR 2.41; PROTHROMBIN TIME 26.7 SECONDS (12.1-14.4)
== END ==
LOC: M SFHCPLAZ 11:07
PROVIDERS: ATTEND Physician Assistant Medical
DX: Z51.81 Encounter for therapeutic drug level monitoring (principal); Z79.01 Long term (current) use of anticoagulants
CPT/HCPCS: 36415; 85610; G0463

== ENCOUNTER → 2018-09-20 | Outpatient (REF) | payer MEDICARE, MEDICAID ==
[~2018-09-20] MED LIST changes: -CRES20TA PO; +CRES20TA2 PO
[2018-09-20 13:42] LABS: INR 1.53; PROTHROMBIN TIME 18.6 SECONDS (12.1-14.4)
== END ==
LOC: M SFHCPLAZ 09:49
PROVIDERS: ATTEND Physician Assistant Medical
DX: Z79.01 Long term (current) use of anticoagulants (principal)

== ENCOUNTER → 2018-10-03 | Outpatient (CLI) | payer MEDICARE, MEDICAID ==
--- NOTE | 2018-10-03 15:07 | REP ---
AP AND LATERAL LEFT KNEE, TWO VIEWS: HISTORY: Acute pain. There is no acute fracture or dislocation. There is minimal narrowing of the medial knee joint space. Osteophytes are present on the tibia and patella. IMPRESSION: Degenerative change as described above. Electronically Signed by Jon Griggs MD 10/03/2018 03:27 P
== END ==
LOC: M SMT 14:41
PROVIDERS: ATTEND Physician Assistant Medical
DX: M17.12 Unilateral primary osteoarthritis, left knee (principal); M25.562 Pain in left knee
CPT/HCPCS: 73560; G0463

== ENCOUNTER → 2018-10-11 | Outpatient (REF) | payer MEDICARE, MEDICAID ==
[2018-10-11 12:47] LABS: BASO % 0.5 % (0.0-1.0); EOS # 0.1 10^3/uL (0.0-0.50); EOS % 1.6 % (0.0-3.0); HEMATOCRIT 41.7 % (36.0-47.0); HEMOGLOBIN 12.6 g/dl (12.0-15.5); LYMPH # 3.8 10^3/uL (1.5-4.5); LYMPH % 43.2 % (24.0-44.0); MEAN CORPUSCULAR HEMOGLOBIN 25.7 pg (27.0-33.0); MEAN CORPUSCULAR HGB CONC 30.2 g/dl (32.0-36.5); MEAN CORPUSCULAR VOLUME 85.1 fl (80.0-96.0); MONO # 0.4 10^3/uL (0.0-0.8); MONO % 4.3 % (0.0-5.0); NEUTROPHILS # 4.4 10^3/uL (1.8-7.7); NEUTROPHILS % 50.2 % (36.0-66.0); PLATELET COUNT, AUTOMATED 287 10^3/uL (150-450); WHITE BLOOD COUNT 8.7 10^3/uL (4.0-10.0)
[2018-10-11 12:59] LABS: INR 2.39; PROTHROMBIN TIME 25.9 SECONDS (11.8-14.0)
[2018-10-11 13:00] LABS: PARTIAL THROMBOPLASTIN TIME 33.7 SECONDS (25.0-38.4)
[2018-10-11 13:18] LABS: BILIRUBIN,TOTAL 0.4 MG/DL (0.2-1.0); CALCIUM LEVEL 8.7 MG/DL (8.5-10.1); CHOLESTEROL RISK RATIO 2.894 (<5); CREATININE FOR GFR 1.05 MG/DL (0.55-1.30); FREE T4 1.14 NG/DL (0.76-1.46); GLOMERULAR FILTRATION RATE 57.1 (>51); POTASSIUM SERUM 3.8 MEQ/L (3.5-5.1); PTH INTACT 239.1 PG/ML (18.5-88.0); THYROID STIMULATING HORMONE 0.637 uIU/ML (0.358-3.740); TOTAL 25(OH) VITAMIN D 59.3 NG/ML (30.0-100.0); TOTAL PROTEIN 6.6 GM/DL (6.4-8.2)
== END ==
LOC: M SFHCPLAZ 10:31
PROVIDERS: ATTEND Family Medicine
DX: D50.9 Iron deficiency anemia, unspecified (principal); E55.9 Vitamin D deficiency, unspecified; E03.9 Hypothyroidism, unspecified; E78.5 Hyperlipidemia, unspecified; Z86.711 Personal history of pulmonary embolism; Z79.01 Long term (current) use of anticoagulants

== ENCOUNTER → 2018-11-09 | Outpatient (CLI) | payer MEDICARE, MEDICAID ==
[~2018-11-09] MED LIST changes: -OMEP20CA3 PO; +OMEP20CA4 PO; +ZANT150T40 PO; -ZANTTAB PO
--- NOTE | 2018-11-09 20:52 | REP ---
MRI LEFT KNEE: TECHNIQUE: Axial proton density fat saturation, sagittal proton density T2 STIR, water excitation, coronal proton density, proton density fat saturation. There are tears of the anterior and posterior horns of the lateral meniscus. There is a tear of the posterior horn of the medial meniscus. The cruciate and collateral ligaments are intact. The extensor mechanism is intact. There is a cartilaginous defect centrally of the patella extending for a width of about 1.2 cm with fissuring undermining the central portion of the cartilage of both the medial and lateral patellar facets, with cartilaginous flaps both medially and laterally. There is moderate diffuse chondromalacia of the femoral condyles and tibial plateaus, both medially and laterally. I do not see significant marrow edema. There is a moderate joint effusion. There is an oval lobulated septated Swanson's cyst in the medial popliteal fossa having a craniocaudal length of approximately 5.2 cm, maximum AP thickness approximately 1.2 cm and maximum transverse dimension approximately 2.9 cm. IMPRESSION: There are tears of the anterior and posterior horns of the lateral meniscus as well as the posterior horn of the medial meniscus. The cruciate and collateral ligaments are intact. Focal central cartilaginous defect of the patella with a diameter 1.2 cm with undermining of the central aspect of the cartilage of both the medial and lateral patellar facets with cartilaginous flaps at these locations. Moderate diffuse chondromalacia of the femoral condyles and tibial plateaus. Moderate joint effusion. Septated Swanson's cyst. Electronically Signed by Rene Tavarez MD 11/11/2018 09:12 P
== END ==
LOC: M RAD 18:14
PROVIDERS: ATTEND Physician Assistant Medical
DX: M25.562 Pain in left knee (principal)

== ENCOUNTER → 2018-11-21 | Outpatient (RCR) | payer MEDICARE, MEDICAID | LOC: M PT 11-05 11:22 | PROVIDERS: ATTEND Physician Assistant Medical | DX: Z51.89 Encounter for other specified aftercare (principal); M25.562 Pain in left knee ==

== ENCOUNTER 2018-12-13 10:45 | Outpatient (RCR) | payer MEDICARE, MEDICAID | END 2018-12-22 | LOC: M PT 10:45 | PROVIDERS: ATTEND Physician Assistant Medical | DX: Z51.89 Encounter for other specified aftercare (principal); M25.562 Pain in left knee ==

== ENCOUNTER → 2018-12-20 | Outpatient (CLI) | payer MEDICARE, MEDICAID ==
--- NOTE | 2018-12-20 13:46 | REPMRS ---
Patient History The patient states she had a clinical breast exam in August 2018. Family history of endometrial cancer at age 50 or over and breast cancer at age 50 in sister, prostate cancer at age 68 in paternal uncle, colorectal cancer and ovarian cancer at age 50 or over in mother. Benign radio exam breast specimen of the right breast, January 05, 2017. Benign stereotatic loc for ea lesion of the right breast, January 05, 2017. No Hormone Replacement Therapy Digital Mammo Screening Bilat: December 20, 2018 - Exam #: [id number] Bilateral CC and MLO view(s) were taken. Technologist: Laura Duncan, Technologist Prior study comparison: December 11, 2017, bilateral digital woman screen mammo, performed at [facility]. December 20, 2016, right breast digital mammo diagnostic unilateral performed at [facility]. November 12, 2015, digital woman screen mammo, performed at [facility]. FINDINGS: There are scattered fibroglandular densities. There has been no change in the appearance of the mammogram from the prior studies. There is a mild amount of scattered fibroglandular density which is fairly symmetric. There is no interval development of dominant mass, architectural distortion, or grouped microcalcification suggestive of malignancy. 3-D tomosynthesis shows no additional findings. Assessment: BI-RADS/ACR category 1 mammogram. Negative Mammogram. Recommendation Breast MRI of both breasts in 6 months. Routine screening mammogram of both breasts in 1 year (for women over age 40). This patient's Lifetime Breast Cancer Risk is estimated at 27.6 %. Annual screening Breast MRI scanniing is recommended for patient's whose lifetime risk assessment is over 20%. This mammogram was interpreted with the aid of an FDA-approved computer-aided dectection system. Electronically Signed By: Aquilino Mcgarry MD 12/20/18 [id number]
== END ==
LOC: M RAD 10:49
PROVIDERS: ATTEND Family Medicine
DX: Z12.31 Encounter for screening mammogram for malignant neoplasm of breast (principal)

== ENCOUNTER → 2019-04-26 | Outpatient (CLI) | payer MEDICARE, MEDICAID ==
[~2019-04-26] MED LIST changes: +OMEP1CAP73 PO; -OMEP20CA4 PO; +POTA10808; +VITA500T40
--- NOTE | 2019-04-26 15:05 | REPPI ---
AC joint series: Two views. History: Arthralgia of the right AC joint. Findings: AP views of the AC joints are applied with and without axial weights. There is AC joint osteoarthritis bilaterally with mild spurring. No subluxation is seen. No bony destructive lesion or fracture is noted. The glenohumeral articulations are normally aligned. Impression: Mild bilateral AC joint osteoarthritis. No subluxation seen. Electronically Signed by Hadley Mcgarry MD 04/26/2019 03:57 P
== END ==
LOC: M PLAIMG 10:42
PROVIDERS: ATTEND Family Medicine
DX: M19.011 Primary osteoarthritis, right shoulder (principal); M25.511 Pain in right shoulder
CPT/HCPCS: 73050; G0463

== ENCOUNTER 2019-04-27 20:29 | Emergency (ER) | payer MEDICARE, MEDICAID ==
[~2019-04-27] VITALS: Ht 175.3 cm; Wt 131.8 kg
[~2019-04-27 20:29] MED LIST changes: +OMEP-172 PO; -OMEP1CAP73 PO; -POTA10808; -VITA500T40
[2019-04-27] MEDS ORDERED: POTA10808 (21:08)
[2019-04-27] MEDS ORDERED: VITA500T40 (21:08)
[2019-04-27] MEDS ORDERED: CAPSAICIN 0.025% CR 60 GM TOP STA (21:28)
--- NOTE | 2019-04-27 22:36 | REPVR ---
PROCEDURE INFORMATION: Exam: US Duplex Right Upper Extremity Veins, Limited Exam date and time: 04/27/2019 9:51 PM Age: 59 years old Clinical indication: Pain; Arm, upper; Right; Additional info: Laid on arm overnight, swelling, pain upper arm TECHNIQUE: Imaging protocol: Real-time Duplex ultrasound of the Right Upper Extremity with 2-D castellanos scale, color Doppler flow and spectral waveform analysis with image documentation. Limited exam focused on the right upper extremity veins. COMPARISON: No relevant prior studies available. FINDINGS: Right deep veins: Unremarkable. Axillary and brachial veins are patent throughout without thrombus. Normal Doppler waveforms. Normal compressibility and/or augmentation response. Visualized internal jugular and subclavian veins are patent. Right superficial veins: Unremarkable. Visualized cephalic and basilic veins are patent without thrombus. Soft tissues: Unremarkable. IMPRESSION: No DVT of the right upper extremity. Electronically signed by: Primitivo Aaron On 04/27/2019 22:36:01 PM
[2019-04-27 22:53] VITALS: BP 146/77
--- NOTE | 2019-04-28 06:02 | ECGEPIP ---
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
== END 2019-04-27 22:56 | disposition home or self-care (01) ==
LOC: M ED 20:29
DX: M25.511 Pain in right shoulder (principal); E11.9 Type 2 diabetes mellitus without complications; I10 Essential (primary) hypertension; J45.909 Unspecified asthma, uncomplicated; E78.5 Hyperlipidemia, unspecified; R51 Headache; E03.9 Hypothyroidism, unspecified; Z86.711 Personal history of pulmonary embolism; Z79.01 Long term (current) use of anticoagulants; Z79.899 Other long term (current) drug therapy; Z88.0 Allergy status to penicillin; Z88.8 Allergy status to other drugs, medicaments and biological substances; Z88.2 Allergy status to sulfonamides; Z88.5 Allergy status to narcotic agent; Z91.040 Latex allergy status; Z91.89 Other specified personal risk factors, not elsewhere classified; Z88.1 Allergy status to other antibiotic agents

== ENCOUNTER → 2019-06-04 | Outpatient (CLI) | payer MEDICARE, MEDICAID ==
[~2019-06-04] MED LIST changes: -OMEP-172 PO; +OMEP1CAP73 PO; +POTA10808; +VITA500T40
[2019-06-04 14:54] LABS: BASO # 0.1 10^3/uL (0.0-0.2); BASO % 0.8 % (0.0-1.0); EOS # 0.1 10^3/uL (0.0-0.5); EOS % 1.7 % (0.0-3.0); HEMATOCRIT 43.5 % (36.0-47.0); LYMPH % 38.5 % (24.0-44.0); MEAN CORPUSCULAR HEMOGLOBIN 25.7 pg (27.0-33.0); MEAN CORPUSCULAR HGB CONC 29.9 g/dl (32.0-36.5); MONO # 0.4 10^3/uL (0.0-0.8); MONO % 5.2 % (0.0-5.0); NEUTROPHILS # 4.2 10^3/uL (1.5-8.5); NEUTROPHILS % 53.7 % (36.0-66.0); PLATELET COUNT, AUTOMATED 258 10^3/uL (150-450); RED BLOOD COUNT 5.06 10^6/uL (4.00-5.40); WHITE BLOOD COUNT 7.8 10^3/uL (4.0-10.0)
[2019-06-04 15:03] LABS: INR 1.7; PROTHROMBIN TIME 19.7 SECONDS (11.8-14.0)
[2019-06-04 15:13] LABS: HEMOGLOBIN A1c 5.8 %
[2019-06-04 15:15] LABS: ALBUMIN 3.6 GM/DL (3.2-5.2); ALT/SGPT 28 U/L (12-78); BILIRUBIN,TOTAL 0.6 MG/DL (0.2-1.0); BLOOD UREA NITROGEN 19 MG/DL (7-18); CALCIUM LEVEL 9.8 MG/DL (8.8-10.2); CARBON DIOXIDE LEVEL 25 MEQ/L (21-32); CHLORIDE LEVEL 108 MEQ/L (98-107); CREATININE FOR GFR 1.11 MG/DL (0.55-1.30); FREE T4 0.86 NG/DL (0.76-1.46); GLOMERULAR FILTRATION RATE 53.4 (>45); GLUCOSE, FASTING 118 MG/DL (70-100); MAGNESIUM LEVEL 1.9 MG/DL (1.8-2.4); POTASSIUM SERUM 3.9 MEQ/L (3.5-5.1); SODIUM LEVEL 141 MEQ/L (136-145); TOTAL PROTEIN 6.7 GM/DL (6.4-8.2)
[2019-06-04 15:18] LABS: PTH INTACT 78.1 PG/ML (18.5-88.0); TOTAL 25(OH) VITAMIN D 82.4 NG/ML (30.0-100.0); VITAMIN B12 LEVEL > 2000 PG/ML (247-911)
== END ==
LOC: M PLALAB 12:30
PROVIDERS: ATTEND Family Medicine
DX: D50.9 Iron deficiency anemia, unspecified (principal); E03.9 Hypothyroidism, unspecified; E55.9 Vitamin D deficiency, unspecified; E53.8 Deficiency of other specified B group vitamins; R73.01 Impaired fasting glucose; M17.0 Bilateral primary osteoarthritis of knee; Z79.01 Long term (current) use of anticoagulants; Z79.899 Other long term (current) drug therapy

== ENCOUNTER → 2019-07-25 | Outpatient (REF) | payer MEDICARE, MEDICAID ==
[2019-07-25 15:11] LABS: INR 1.93; PROTHROMBIN TIME 21.9 SECONDS (11.8-14.0)
[2019-07-25 17:57] LABS: APPEARANCE, URINE TURBID (CLEAR); BACTERIA, URINE AUTO 1+ (NEGATIVE); BILIRUBIN, URINE AUTO NEGATIVE (NEGATIVE); BLOOD, URINE BLOOD NEGATIVE (NEGATIVE); CALCIUM OXALATE CRYSTALS LARGE; COLOR, URINE AMBER (YELLOW); GLUCOSE, URINE (UA) AUTO NEGATIVE (NEGATIVE); KETONE, URINE AUTO TRACE mg/dL (NEGATIVE); LEUKOCYTE ESTERASE, URINE AUTO 1+ (NEGATIVE); MUCUS, URINE MODERATE (NEGATIVE); NITRITE, URINE AUTO NEGATIVE (NEGATIVE); PROTEIN, URINE AUTO 1+ mg/dL (NEGATIVE); RBC, URINE AUTO 5 /HPF (0-3); RENAL EPITHELIAL CELLS 1 /HPF; SPECIFIC GRAVITY URINE AUTO 1.025 (1.002-1.035); SQUAMOUS EPITHELIAL CELL UR AU 18 /HPF (0-6); UROBILINOGEN, URINE AUTO 0.2 mg/dL (0.0-2.0); WBC, URINE AUTO 34 /HPF (0-3)
== END ==
LOC: M SFHCPLAZ 13:57
PROVIDERS: ATTEND Physician Assistant Medical
DX: R73.01 Impaired fasting glucose (principal); R30.0 Dysuria; Z51.81 Encounter for therapeutic drug level monitoring

== ENCOUNTER → 2019-08-01 | Outpatient (REF) | payer MEDICARE, MEDICAID ==
[2019-08-01 13:01] LABS: INR 1.81; PROTHROMBIN TIME 20.7 SECONDS (11.8-14.0)
== END ==
LOC: M PLALAB 10:43
PROVIDERS: ATTEND Physician Assistant Medical
DX: Z79.01 Long term (current) use of anticoagulants (principal)

== ENCOUNTER → 2019-08-08 | Outpatient (REF) | payer MEDICARE, MEDICAID ==
[2019-08-08 14:21] LABS: INR 2.24; PROTHROMBIN TIME 24.6 SECONDS (11.8-14.0)
== END ==
LOC: M PLALAB 13:17
PROVIDERS: ATTEND Physician Assistant Medical
DX: Z51.81 Encounter for therapeutic drug level monitoring (principal)

== ENCOUNTER → 2019-10-03 | Outpatient (REF) | payer MEDICARE, MEDICAID ==
[~2019-10-03] MED LIST changes: -MAPA325T2 PO; +MAPA325T8 PO
[2019-10-03 12:14] LABS: BASO % 0.4 % (0.0-1.0); EOS # 0.1 10^3/uL (0.0-0.5); EOS % 0.7 % (0.0-3.0); HEMATOCRIT 43.6 % (36.0-47.0); HEMOGLOBIN 13.4 g/dl (12.0-15.5); LYMPH # 3.6 10^3/uL (1.5-5.0); LYMPH % 33.8 % (24.0-44.0); MEAN CORPUSCULAR HEMOGLOBIN 25.5 pg (27.0-33.0); MEAN CORPUSCULAR HGB CONC 30.7 g/dl (32.0-36.5); MEAN CORPUSCULAR VOLUME 82.9 fl (80.0-96.0); MONO # 0.6 10^3/uL (0.0-0.8); MONO % 5.1 % (0.0-5.0); NEUTROPHILS # 6.4 10^3/uL (1.5-8.5); NEUTROPHILS % 59.7 % (36.0-66.0); PLATELET COUNT, AUTOMATED 296 10^3/uL (150-450); RED BLOOD COUNT 5.26 10^6/uL (4.00-5.40); WHITE BLOOD COUNT 10.8 10^3/uL (4.0-10.0)
[2019-10-03 12:22] LABS: INR 1.94; PROTHROMBIN TIME 21.9 SECONDS (11.8-14.0)
[2019-10-03 14:09] LABS: ALBUMIN 3.3 GM/DL (3.2-5.2); ALT/SGPT 23 U/L (12-78); BILIRUBIN,TOTAL 0.7 MG/DL (0.2-1.0); BLOOD UREA NITROGEN 19 MG/DL (7-18); CALCIUM LEVEL 8.7 MG/DL (8.8-10.2); CARBON DIOXIDE LEVEL 28 MEQ/L (21-32); CHLORIDE LEVEL 99 MEQ/L (98-107); CREATININE FOR GFR 1.35 MG/DL (0.55-1.30); GLOMERULAR FILTRATION RATE 42.6 (>45); GLUCOSE, FASTING 139 MG/DL (70-100); IRON (FE) 53 UG/DL (50-170); POTASSIUM SERUM 2.6 MEQ/L (3.5-5.1); PTH INTACT 264.7 PG/ML (18.5-88.0); SODIUM LEVEL 139 MEQ/L (136-145); TOTAL PROTEIN 6.6 GM/DL (6.4-8.2)
[2019-10-03 14:10] LABS: FREE T4 1.67 NG/DL (0.76-1.46); PERCENT SATURATION 11.8 % (13.2-45.0); TOTAL 25(OH) VITAMIN D 111.6 NG/ML (30.0-100.0); TOTAL IRON BINDING CAPACITY 448 UG/DL (250-450); TOTAL PROTEIN 6.6 GM/DL (6.4-8.2)
[2019-10-04 17:07] LABS: FREE KAPPA LIGHT CHAINS SERUM 19.4 mg/L (3.3-19.4); FREE LAMBDA LIGHT CHAINS SERUM 10.7 mg/L (5.7-26.3); INSULIN LEVEL 46.9 uIU/mL (2.6-24.9); KAPPA/LAMBDA RATIO SERUM 1.81 (0.26-1.65)
[2019-10-08 15:47] LABS: ALBUMIN 3.48 GM/DL (3.29-5.55); ALBUMIN % 52.8 % (55.8-66.1); ALPHA-1-GLOBULIN % 6.6 % (2.9-4.9); ALPHA-1-GLOBULINS 0.44 GM/DL (0.17-0.41); ALPHA-2-GLOBULINS 1.07 GM/DL (0.42-0.99); ALPHA-2-GLOBULINS % 16.2 % (7.1-11.8); BETA-1-GLOBULINS 0.53 GM/DL (0.28-0.60); BETA-1-GLOBULINS % 8.1 % (4.7-7.2); BETA-2-GLOBULINS 0.38 GM/DL (0.19-0.55); BETA-2-GLOBULINS % 5.8 % (3.2-6.5); GAMMA GLOBULIN % 10.5 % (11.1-18.8); GAMMA GLOBULINS 0.69 GM/DL (0.65-1.58)
== END ==
LOC: M PLALAB 10:17
PROVIDERS: ATTEND Family Medicine
DX: D50.9 Iron deficiency anemia, unspecified (principal); E55.9 Vitamin D deficiency, unspecified; R77.2 Abnormality of alphafetoprotein; E03.9 Hypothyroidism, unspecified; Z79.01 Long term (current) use of anticoagulants; R73.01 Impaired fasting glucose

== ENCOUNTER → 2019-10-10 | Outpatient (REF) | payer MEDICARE, MEDICAID ==
[2019-10-10 12:12] LABS: INR 2.24; PROTHROMBIN TIME 24.6 SECONDS (11.8-14.0)
[2019-10-10 12:56] LABS: ALBUMIN 3.1 GM/DL (3.2-5.2); CALCIUM LEVEL 9.3 MG/DL (8.8-10.2); CREATININE FOR GFR 1.25 MG/DL (0.55-1.30); GLOMERULAR FILTRATION RATE 46.5 (>45); MAGNESIUM LEVEL 2.2 MG/DL (1.8-2.4); POTASSIUM SERUM 2.8 MEQ/L (3.5-5.1)
== END ==
LOC: M PLALAB 10:10
PROVIDERS: ATTEND Family Medicine
DX: I10 Essential (primary) hypertension (principal); Z79.01 Long term (current) use of anticoagulants

== ENCOUNTER → 2019-10-17 | Outpatient (REF) | payer MEDICARE, MEDICAID ==
[2019-10-17 12:28] LABS: CREATININE FOR GFR 1.02 MG/DL (0.55-1.30); GLOMERULAR FILTRATION RATE 58.8 (>45); POTASSIUM SERUM 4.1 MEQ/L (3.5-5.1)
== END ==
LOC: M SFHCPLAZ 09:02
PROVIDERS: ATTEND Physician Assistant Medical
DX: E87.6 Hypokalemia (principal)
CPT/HCPCS: 36415; 80048; G0463

== ENCOUNTER → 2019-11-11 | Outpatient (REF) | payer MEDICARE, MEDICAID ==
[2019-11-11 13:15] LABS: INR 1.78; PROTHROMBIN TIME 20.5 SECONDS (11.8-14.0)
== END ==
LOC: M SFHCPLAZ 10:23
PROVIDERS: ATTEND Family Medicine
DX: R11.2 Nausea with vomiting, unspecified (principal); Z79.01 Long term (current) use of anticoagulants

== ENCOUNTER → 2019-12-04 | Outpatient (REF) | payer MEDICARE, MEDICAID ==
[2020-01-06 09:44] LABS: INR 1.86; PROTHROMBIN TIME 21.8 SECONDS (11.8-14.0)
== END ==
LOC: M SFHCPLAZ 09:17
PROVIDERS: ATTEND Physician Assistant Medical
DX: Z79.01 Long term (current) use of anticoagulants (principal)

== ENCOUNTER → 2019-12-12 | Outpatient (CLI) | payer MEDICARE, MEDICAID ==
[2019-12-12 14:47] LABS: INR 2.21
== END ==
LOC: M PLALAB 12:16
PROVIDERS: ATTEND Physician Assistant Medical
DX: Z86.711 Personal history of pulmonary embolism (principal)

== ENCOUNTER → 2019-12-27 | Outpatient (CLI) | payer MEDICARE, MEDICAID ==
[2019-12-27 14:47] LABS: INR 2.2; PROTHROMBIN TIME 24.9 SECONDS (11.8-14.0)
== END ==
LOC: M PLALAB 11:42
PROVIDERS: ATTEND Nurse Practitioner Family
DX: Z79.01 Long term (current) use of anticoagulants (principal); Z86.711 Personal history of pulmonary embolism

== ENCOUNTER → 2020-01-30 | Outpatient (CLI) | payer MEDICARE, MEDICAID ==
[2020-01-30 18:06] LABS: INR 2.45; PROTHROMBIN TIME 27.1 SECONDS (12.5-14.3)
== END ==
LOC: M PLALAB 14:34
PROVIDERS: ATTEND Nurse Practitioner Family
DX: Z79.01 Long term (current) use of anticoagulants (principal); Z86.711 Personal history of pulmonary embolism

== ENCOUNTER → 2020-02-26 | Outpatient (REF) | payer MEDICARE, MEDICAID ==
[2020-02-26 17:54] LABS: BASO # 0.1 10^3/uL (0.0-0.2); BASO % 0.7 % (0.0-1.0); EOS # 0.2 10^3/uL (0.0-0.5); EOS % 1.5 % (0.0-3.0); HEMATOCRIT 41.8 % (36.0-47.0); HEMOGLOBIN 12.2 g/dl (12.0-15.5); LYMPH # 4.4 10^3/uL (1.5-5.0); LYMPH % 39.8 % (24.0-44.0); MEAN CORPUSCULAR HGB CONC 29.2 g/dl (32.0-36.5); MEAN CORPUSCULAR VOLUME 85.7 fl (80.0-96.0); MONO # 0.6 10^3/uL (0.0-0.8); MONO % 5.1 % (0.0-5.0); NEUTROPHILS # 5.8 10^3/uL (1.5-8.5); NEUTROPHILS % 52.4 % (36.0-66.0); PLATELET COUNT, AUTOMATED 301 10^3/uL (150-450); RED BLOOD COUNT 4.88 10^6/uL (4.00-5.40)
[2020-02-26 18:06] LABS: INR 2.25; PARTIAL THROMBOPLASTIN TIME 35.4 SECONDS (24.2-38.5); PROTHROMBIN TIME 25.4 SECONDS (12.5-14.3)
[2020-02-26 19:14] LABS: HEMOGLOBIN A1c 5.7 %
[2020-02-26 20:26] LABS: ALBUMIN 3.3 GM/DL (3.2-5.2); BILIRUBIN,TOTAL 0.7 MG/DL (0.2-1.0); CALCIUM LEVEL 8.5 MG/DL (8.8-10.2); CHOLESTEROL RISK RATIO 2.575 (<5); CREATININE FOR GFR 1.07 MG/DL (0.55-1.30); FREE T4 1.04 NG/DL (0.76-1.46); GLOMERULAR FILTRATION RATE 55.7 (>45); POTASSIUM SERUM 3.9 MEQ/L (3.5-5.1); THYROID STIMULATING HORMONE 13.3 uIU/ML (0.358-3.740); TOTAL PROTEIN 6.4 GM/DL (6.4-8.2)
== END ==
LOC: M SFHCPLAZ 14:54
PROVIDERS: ATTEND Family Medicine
DX: E55.9 Vitamin D deficiency, unspecified (principal); E78.5 Hyperlipidemia, unspecified; E03.9 Hypothyroidism, unspecified; R73.01 Impaired fasting glucose; Z79.01 Long term (current) use of anticoagulants

== ENCOUNTER → 2020-03-11 | Outpatient (CLI) | payer MEDICARE, MEDICAID ==
[2020-03-11 14:18] LABS: RHEUMATOID FACTOR QUANT < 10.0 IU/ML (<15.0)
[2020-03-12 15:12] LABS: ANTINUCLEAR ANTIBODIES DIRECT Negative (Negative)
== END ==
LOC: M PLALAB 11:23
PROVIDERS: ATTEND Orthopaedic Surgery
DX: M65.842 Other synovitis and tenosynovitis, left hand (principal)

== ENCOUNTER → 2020-03-18 | Outpatient (CLI) | payer MEDICARE, MEDICAID ==
[~2020-03-18] MED LIST changes: +PROHANCE 279.3MG/ML 15ML VIAL As Ordered ONE
== END ==
LOC: M RAD 14:56
PROVIDERS: ATTEND Family Medicine
DX: Z12.31 Encounter for screening mammogram for malignant neoplasm of breast (principal); Z80.3 Family history of malignant neoplasm of breast

== ENCOUNTER → 2020-04-09 | Outpatient (CLI) | payer MEDICARE, MEDICAID ==
[~2020-04-09] MED LIST changes: -ESCI20TA PO; +ESCI20TA16 PO; -PROHANCE 279.3MG/ML 15ML VIAL As Ordered ONE
--- NOTE | 2020-04-13 11:45 | SLEEPCENT ---
NOCTURNAL POLYSOMNOGRAPHY CPAP TITRATION DATE: 04/09/2020 ORDERED BY: Jean Claude Soriano M.D. Nocturnal polysomnography was performed for retitration of pressure therapy in this patient with obstructive sleep apnea syndrome intolerant of CPAP. For testing a ResMed AirFit full face mask of small size was used. An initial pressure of 14 cm was applied to the circuit, and the lights were extinguished. Seven hours and 54 minutes of data were reviewed. There were 284 minutes of sleep identified. Sleep latency was mildly prolonged at 29.5 minutes. REM sleep was not achieved. Sleep architecture showed poor progression and periods of wake resulting in a reduced sleep efficiency of 60.9%. The electrocardiogram showed a sinus rhythm with an average heart rate of 85 beats per minute. EEG showed some alpha intrusion into non-REM stages. There were no focal events identified. Despite optimal mask fit and minimal air leak, the patient was changed to a BiLevel device. Multiple BiLevel pressures were applied with the emergence of some central apneas. Best sleep was seen at a BiLevel pressure 16/12. Still, the patient did not achieve REM sleep with some background limb activity with movement arousal index of 12. IMPRESSION: Obstructive sleep apnea syndrome (G47.33). RECOMMENDATION: Initiation of BiLevel pressure therapy at an inspiratory pressure of 16/expiratory pressure of 12 would appear best based on this stud. However, given the patient's poor sleep architecture, close clinical follow-up may be necessary. Dr. Fitzpatrick
== END ==
LOC: M SLEEP 20:00
PROVIDERS: ATTEND Internal Medicine Pulmonary Disease
DX: G47.33 Obstructive sleep apnea (adult) (pediatric) (principal)

== ENCOUNTER → 2020-04-10 | Outpatient (REF) | payer MEDICARE, MEDICAID ==
[~2020-04-10] MED LIST changes: +ESCI20TA PO; -ESCI20TA16 PO
[2020-04-10 10:57] LABS: BASO # 0.1 10^3/uL (0.0-0.2); BASO % 0.6 % (0.0-1.0); EOS # 0.2 10^3/uL (0.0-0.5); EOS % 1.5 % (0.0-3.0); HEMATOCRIT 41.1 % (36.0-47.0); HEMOGLOBIN 11.8 g/dl (12.0-15.5); LYMPH # 3.7 10^3/uL (1.5-5.0); LYMPH % 33.8 % (24.0-44.0); MEAN CORPUSCULAR HEMOGLOBIN 24.6 pg (27.0-33.0); MEAN CORPUSCULAR HGB CONC 28.7 g/dl (32.0-36.5); MEAN CORPUSCULAR VOLUME 85.6 fl (80.0-96.0); MONO # 0.7 10^3/uL (0.0-0.8); MONO % 6.6 % (0.0-5.0); NEUTROPHILS # 6.2 10^3/uL (1.5-8.5); NEUTROPHILS % 57.2 % (36.0-66.0); PLATELET COUNT, AUTOMATED 261 10^3/uL (150-450); WHITE BLOOD COUNT 10.8 10^3/uL (4.0-10.0)
[2020-04-10 11:06] LABS: INR 1.96; PROTHROMBIN TIME 22.8 SECONDS (12.5-14.3)
[2020-04-10 11:07] LABS: PARTIAL THROMBOPLASTIN TIME 33.1 SECONDS (24.2-38.5)
[2020-04-10 11:32] LABS: ALBUMIN 3.3 GM/DL (3.2-5.2); BILIRUBIN,TOTAL 0.4 MG/DL (0.2-1.0); CALCIUM LEVEL 8.7 MG/DL (8.8-10.2); CREATININE FOR GFR 1.11 MG/DL (0.55-1.30); FREE T4 1.02 NG/DL (0.76-1.46); GLOMERULAR FILTRATION RATE 53.2 (>45); POTASSIUM SERUM 3.8 MEQ/L (3.5-5.1); THYROID PEROXIDASE ANTIBODY 28.5 U/ML (<60.0); THYROID STIMULATING HORMONE 7.36 uIU/ML (0.358-3.740); TOTAL PROTEIN 6.8 GM/DL (6.4-8.2)
[2020-04-14 16:11] LABS: ANTI-MITOCHONDRIAL ANTIBODY <20.0 Units (0.0-20.0)
== END ==
LOC: M PLALAB 08:27
PROVIDERS: ATTEND Family Medicine
DX: R74.8 Abnormal levels of other serum enzymes (principal); D50.9 Iron deficiency anemia, unspecified; E03.9 Hypothyroidism, unspecified; Z79.01 Long term (current) use of anticoagulants; L50.8 Other urticaria

== ENCOUNTER → 2020-05-14 | Outpatient (REF) | payer MEDICARE, MEDICAID ==
[~2020-05-14] MED LIST changes: -ESCI20TA PO; +ESCI20TA16 PO
[2020-05-14 17:18] LABS: BASO # 0.1 10^3/uL (0.0-0.2); BASO % 0.5 % (0.0-1.0); EOS # 0.1 10^3/uL (0.0-0.5); HEMATOCRIT 46.2 % (36.0-47.0); HEMOGLOBIN 13.2 g/dl (12.0-15.5); LYMPH # 3.7 10^3/uL (1.5-5.0); LYMPH % 27.9 % (24.0-44.0); MEAN CORPUSCULAR HEMOGLOBIN 24.8 pg (27.0-33.0); MEAN CORPUSCULAR HGB CONC 28.6 g/dl (32.0-36.5); MEAN CORPUSCULAR VOLUME 86.8 fl (80.0-96.0); MONO # 0.9 10^3/uL (0.0-0.8); MONO % 6.8 % (0.0-5.0); NEUTROPHILS # 8.4 10^3/uL (1.5-8.5); NEUTROPHILS % 63.3 % (36.0-66.0); PLATELET COUNT, AUTOMATED 335 10^3/uL (150-450); RED BLOOD COUNT 5.32 10^6/uL (4.00-5.40); WHITE BLOOD COUNT 13.2 10^3/uL (4.0-10.0)
[2020-05-14 17:19] LABS: C REACTIVE PROTEIN QUANTITATIV 1.37 MG/DL (0.00-0.30); COMPLEMENT C3 193 MG/DL (90-180); COMPLEMENT C4 34 MG/DL (10-40); TOTAL PROTEIN 7.1 GM/DL (6.4-8.2)
[2020-05-14 18:09] LABS: ERYTHROCYTE SEDIMENTATION RATE 6 mm/hr (0-30)
[2020-05-15 13:38] LABS: ALBUMIN 3.68 GM/DL (3.29-5.55); ALBUMIN % 51.8 % (55.8-66.1); ALPHA-1-GLOBULIN % 5.9 % (2.9-4.9); ALPHA-1-GLOBULINS 0.42 GM/DL (0.17-0.41); ALPHA-2-GLOBULINS 1.26 GM/DL (0.42-0.99); ALPHA-2-GLOBULINS % 17.8 % (7.1-11.8); BETA-1-GLOBULINS 0.53 GM/DL (0.28-0.60); BETA-1-GLOBULINS % 7.5 % (4.7-7.2); BETA-2-GLOBULINS 0.43 GM/DL (0.19-0.55); GAMMA GLOBULINS 0.78 GM/DL (0.65-1.58)
[2020-05-19 12:08] LABS: ANTI CENTROMERE ANTIBODY <0.2 AI (0.0-0.9); ANTI DS-DNA AB Negative (Negative); ANTI SCLERODERMA ANTIBODIES <0.2 AI (0.0-0.9); ANTI-HISTONE ANTIBODIES 0.3 Units (0.0-0.9); BETA-2 GLYCOPROTEIN I ABY IGA <9 (0-25); BETA-2 GLYCOPROTEIN I ABY IGG <9 (0-20); BETA-2 GLYCOPROTEIN I ABY IGM <9 (0-32); CARDIOLIPIN IGA ANTIBODY <9 APL U/mL (0-11); CARDIOLIPIN IGG ANTIBODY <9 GPL U/mL (0-14); CARDIOLIPIN IGM ANTIBODY <9 MPL U/mL (0-12); COMPLEMENT TOTAL (CH50) > 60 U/mL (>41); CYCLIC CITRULLINATED PEPTIDE 3 units (0-19); RNP ANTIBODY < 0.2 AI (0.0-0.9); SMITHS ANTIBODY < 0.2 AI (0.0-0.9); SSA SJOGRENS A <0.2 AI (0.0-0.9); SSB SJOGRENS B <0.2 AI (0.0-0.9)
== END ==
LOC: M SFHCRHEU 15:25
PROVIDERS: ATTEND Internal Medicine
DX: M06.4 Inflammatory polyarthropathy (principal); Z86.718 Personal history of other venous thrombosis and embolism
CPT/HCPCS: 83520; 84165; 85025; 85652; 86140; 86146; 86147; 86160; 86162; 86200; 86225; 86235; 86255; G0463

== ENCOUNTER → 2020-06-15 | Outpatient (REF) | payer MEDICARE, MEDICAID ==
[2020-06-15 18:31] LABS: APPEARANCE, URINE CLOUDY (CLEAR); BACTERIA, URINE AUTO 1+ (NEGATIVE); BILIRUBIN, URINE AUTO NEGATIVE (NEGATIVE); BLOOD, URINE BLOOD NEGATIVE (NEGATIVE); COLOR, URINE YELLOW (YELLOW); GLUCOSE, URINE (UA) AUTO NEGATIVE (NEGATIVE); KETONE, URINE AUTO TRACE mg/dL (NEGATIVE); LEUKOCYTE ESTERASE, URINE AUTO 2+ (NEGATIVE); MUCUS, URINE SMALL (NEGATIVE); NITRITE, URINE AUTO NEGATIVE (NEGATIVE); PROTEIN, URINE AUTO 1+ mg/dL (NEGATIVE); RBC, URINE AUTO 2 /HPF (0-3); SPECIFIC GRAVITY URINE AUTO 1.026 (1.002-1.035); SQUAMOUS EPITHELIAL CELL UR AU 11 /HPF (0-6); TRANSITIONAL EPITHELIAL AUTO <1 /HPF; UROBILINOGEN, URINE AUTO 0.2 mg/dL (0.0-2.0); WBC, URINE AUTO 19 /HPF (0-3)
== END ==
LOC: M LAB REF 16:45
PROVIDERS: ATTEND Internal Medicine
DX: M06.4 Inflammatory polyarthropathy (principal)

== ENCOUNTER → 2020-06-23 | Outpatient (REF) | payer MEDICARE, MEDICAID ==
[2020-06-23 15:27] LABS: BASO # 0.1 10^3/uL (0.0-0.2); BASO % 0.5 % (0.0-1.0); EOS # 0.2 10^3/uL (0.0-0.5); EOS % 2.3 % (0.0-3.0); HEMATOCRIT 41.9 % (36.0-47.0); HEMOGLOBIN 12.2 g/dl (12.0-15.5); LYMPH # 4.2 10^3/uL (1.5-5.0); LYMPH % 42.3 % (24.0-44.0); MEAN CORPUSCULAR HEMOGLOBIN 24.5 pg (27.0-33.0); MEAN CORPUSCULAR HGB CONC 29.1 g/dl (32.0-36.5); MEAN CORPUSCULAR VOLUME 84.3 fl (80.0-96.0); MONO # 0.6 10^3/uL (0.0-0.8); MONO % 6.1 % (2.0-8.0); NEUTROPHILS # 4.8 10^3/uL (1.5-8.5); NEUTROPHILS % 48.5 % (36.0-66.0); PLATELET COUNT, AUTOMATED 336 10^3/uL (150-450); RED BLOOD COUNT 4.97 10^6/uL (4.00-5.40); WHITE BLOOD COUNT 9.9 10^3/uL (4.0-10.0)
[2020-06-23 15:37] LABS: INR 1.72; PARTIAL THROMBOPLASTIN TIME 30.1 SECONDS (24.2-38.5); PROTHROMBIN TIME 20.5 SECONDS (12.5-14.3)
[2020-06-23 15:40] LABS: FERRITIN 11 NG/ML (8-252); FREE T4 1.01 NG/DL (0.76-1.46)
[2020-06-23 17:13] LABS: HEMOGLOBIN A1c 5.8 %
== END ==
LOC: M SFHCPLAZ 13:27
PROVIDERS: ATTEND Family Medicine
DX: E03.9 Hypothyroidism, unspecified (principal); R73.01 Impaired fasting glucose; Z86.711 Personal history of pulmonary embolism; M19.90 Unspecified osteoarthritis, unspecified site

== ENCOUNTER → 2020-06-26 | Outpatient (CLI) | payer MEDICARE, MEDICAID ==
--- NOTE | 2020-06-26 16:01 | REPMRS ---
Patient History The patient states she has not had a clinical breast exam in over a year. Family history of endometrial cancer at age 50 or over and breast cancer at age 50 in sister, prostate cancer at age 68 in paternal uncle, colorectal cancer and ovarian cancer at age 50 or over in mother. Benign radio exam breast specimen of the right breast, January 05, 2017. Benign stereotatic loc for ea lesion of the right breast, January 05, 2017. No Hormone Replacement Therapy 3D TOMOSYNTHESIS WAS PERFORMED. Volpara breast density a. Digital Woman Screen Mammo: June 26, 2020 - Exam #: [id number] Bilateral CC and MLO view(s) were taken. Technologist: RT Demetris Prior study comparison: December 20, 2018, bilateral digital mammo screening bilat, performed at [facility]. December 11, 2017, bilateral digital woman screen mammo performed at [facility]. FINDINGS: There are scattered fibroglandular densities. There has been no change in the appearance of the mammogram from the prior studies. There is a mild amount of residual fibroglandular tissue which is fairly symmetric. There is no interval development of dominant mass, architectural distortion, or clustered microcalcification suggestive of malignancy. Assessment: BI-RADS/ACR category 1 mammogram. Negative Mammogram. Recommendation Routine screening mammogram in 1 year (for women over age 40). This mammogram was interpreted with the aid of an FDA-approved computer-aided dectection system. THE LIFETIME RISK OF BREAST CANCER IS 25.7%, THEREFORE SUPPLEMENTAL SCREENING MRI OF THE BREASTS IS RECOMMENDED IN 6 MONTHS. Electronically Signed By: Rene Tavarez MD 06/26/20 1600
== END ==
LOC: M WHC 13:58
PROVIDERS: ATTEND Nurse Practitioner Family
DX: Z12.31 Encounter for screening mammogram for malignant neoplasm of breast (principal); Z80.49 Family history of malignant neoplasm of other genital organs; Z80.3 Family history of malignant neoplasm of breast

== ENCOUNTER → 2020-08-25 | Outpatient (REF) | payer MEDICARE, MEDICAID ==
[2020-08-25 11:48] LABS: INR 1.74; PROTHROMBIN TIME 20.7 SECONDS (12.5-14.3)
== END ==
LOC: M SFHCPLAZ 09:46
PROVIDERS: ATTEND Physician Assistant Medical
DX: Z51.81 Encounter for therapeutic drug level monitoring (principal); Z79.01 Long term (current) use of anticoagulants
CPT/HCPCS: 36415; 85610; G0463

== ENCOUNTER → 2020-09-03 | Outpatient (REF) | payer MEDICARE, MEDICAID ==
[2020-09-03 17:27] LABS: INR 2.71; PROTHROMBIN TIME 29.4 SECONDS (12.5-14.3)
== END ==
LOC: M PLALAB 16:38
PROVIDERS: ATTEND Physician Assistant Medical
DX: Z51.81 Encounter for therapeutic drug level monitoring (principal); Z79.01 Long term (current) use of anticoagulants

== ENCOUNTER → 2020-10-22 | Outpatient (CLI) | payer MEDICARE, MEDICAID ==
[2020-10-22 15:42] LABS: BASO # 0.1 10^3/uL (0.0-0.2); BASO % 0.5 % (0.0-1.0); EOS # 0.2 10^3/uL (0.0-0.5); HEMOGLOBIN 11.5 g/dl (12.0-15.5); LYMPH # 3.3 10^3/uL (1.5-5.0); LYMPH % 33.4 % (24.0-44.0); MEAN CORPUSCULAR HEMOGLOBIN 23.9 pg (27.0-33.0); MEAN CORPUSCULAR HGB CONC 29.5 g/dl (32.0-36.5); MEAN CORPUSCULAR VOLUME 80.9 fl (80.0-96.0); MONO # 0.5 10^3/uL (0.0-0.8); MONO % 5.2 % (2.0-8.0); NEUTROPHILS # 5.8 10^3/uL (1.5-8.5); NEUTROPHILS % 58.6 % (36.0-66.0); PLATELET COUNT, AUTOMATED 269 10^3/uL (150-450); RED BLOOD COUNT 4.82 10^6/uL (4.00-5.40); WHITE BLOOD COUNT 9.8 10^3/uL (4.0-10.0)
[2020-10-22 15:59] LABS: BLOOD UREA NITROGEN 12 MG/DL (7-18); CHLORIDE LEVEL 106 MEQ/L (98-107); CREATININE FOR GFR 0.89 MG/DL (0.55-1.30); GLOMERULAR FILTRATION RATE > 60.0 (>45); GLUCOSE, FASTING 114 MG/DL (70-100); POTASSIUM SERUM 3.5 MEQ/L (3.5-5.1); PTH INTACT 281.2 PG/ML (18.5-88.0); SODIUM LEVEL 140 MEQ/L (136-145)
[2020-10-22 16:00] LABS: ALBUMIN 2.9 GM/DL (3.2-5.2); CALCIUM LEVEL 8.1 MG/DL (8.8-10.2); CARBON DIOXIDE LEVEL 25 MEQ/L (21-32); FERRITIN 11 NG/ML (8-252); FREE T4 1.54 NG/DL (0.76-1.46); PHOSPHORUS LEVEL 2.4 MG/DL (2.5-4.9); THYROID PEROXIDASE ANTIBODY 44.5 U/ML (<60.0); THYROID STIMULATING HORMONE 0.192 uIU/ML (0.358-3.740); TOTAL 25(OH) VITAMIN D 84.7 NG/ML (30.0-100.0); VITAMIN B12 LEVEL 972 PG/ML (247-911)
[2020-10-22 16:39] LABS: INR 2.75; PROTHROMBIN TIME 29.7 SECONDS (12.5-14.3)
[2020-10-24 18:09] LABS: FREE KAPPA LIGHT CHAINS SERUM 18.8 mg/L (3.3-19.4); FREE LAMBDA LIGHT CHAINS SERUM 11.4 mg/L (5.7-26.3); KAPPA/LAMBDA RATIO SERUM 1.65 (0.26-1.65)
== END ==
LOC: M PLALAB 12:15
PROVIDERS: ATTEND Family Medicine
DX: E03.9 Hypothyroidism, unspecified (principal); E53.8 Deficiency of other specified B group vitamins; R74.8 Abnormal levels of other serum enzymes; Z86.711 Personal history of pulmonary embolism

== ENCOUNTER → 2020-11-16 | Outpatient (CLI) | payer MEDICARE, MEDICAID ==
[2020-11-16 17:46] LABS: BASO # 0.1 10^3/uL (0.0-0.2); BASO % 0.6 % (0.0-1.0); EOS # 0.2 10^3/uL (0.0-0.5); EOS % 1.9 % (0.0-3.0); HEMATOCRIT 41.4 % (36.0-47.0); HEMOGLOBIN 11.9 g/dl (12.0-15.5); LYMPH # 2.7 10^3/uL (1.5-5.0); LYMPH % 27.1 % (24.0-44.0); MEAN CORPUSCULAR HGB CONC 28.7 g/dl (32.0-36.5); MEAN CORPUSCULAR VOLUME 83.6 fl (80.0-96.0); MONO # 0.4 10^3/uL (0.0-0.8); MONO % 4.5 % (2.0-8.0); NEUTROPHILS # 6.4 10^3/uL (1.5-8.5); NEUTROPHILS % 65.7 % (36.0-66.0); PLATELET COUNT, AUTOMATED 291 10^3/uL (150-450); RED BLOOD COUNT 4.95 10^6/uL (4.00-5.40); WHITE BLOOD COUNT 9.8 10^3/uL (4.0-10.0)
[2020-11-16 17:58] LABS: INR 1.99
== END ==
LOC: M PLALAB 14:27
PROVIDERS: ATTEND Family Medicine
DX: Z86.711 Personal history of pulmonary embolism (principal)

== ENCOUNTER → 2020-12-29 | Outpatient (CLI) | payer MEDICARE, MEDICAID ==
[2020-12-29 15:21] LABS: BASO # 0.1 10^3/uL (0.0-0.2); BASO % 0.7 % (0.0-1.0); EOS # 0.2 10^3/uL (0.0-0.5); EOS % 1.5 % (0.0-3.0); HEMATOCRIT 41.6 % (36.0-47.0); HEMOGLOBIN 12.2 g/dl (12.0-15.5); LYMPH # 3.1 10^3/uL (1.5-5.0); LYMPH % 26.6 % (24.0-44.0); MEAN CORPUSCULAR HEMOGLOBIN 23.8 pg (27.0-33.0); MEAN CORPUSCULAR HGB CONC 29.3 g/dl (32.0-36.5); MEAN CORPUSCULAR VOLUME 81.1 fl (80.0-96.0); MONO # 0.7 10^3/uL (0.0-0.8); MONO % 6.1 % (2.0-8.0); NEUTROPHILS # 7.5 10^3/uL (1.5-8.5); NEUTROPHILS % 64.8 % (36.0-66.0); PLATELET COUNT, AUTOMATED 314 10^3/uL (150-450); RED BLOOD COUNT 5.13 10^6/uL (4.00-5.40); WHITE BLOOD COUNT 11.6 10^3/uL (4.0-10.0)
[2020-12-29 15:29] LABS: INR 2.75; PROTHROMBIN TIME 29.4 SECONDS (12.7-14.5)
== END ==
LOC: M PLALAB 11:35
PROVIDERS: ATTEND Family Medicine
DX: Z86.711 Personal history of pulmonary embolism (principal)

== ENCOUNTER → 2021-02-04 | Outpatient (CLI) | payer MEDICARE, MEDICAID ==
[2021-02-04 17:21] LABS: BASO # 0.1 10^3/uL (0.0-0.2); BASO % 0.5 % (0.0-1.0); EOS # 0.2 10^3/uL (0.0-0.5); HEMATOCRIT 39.8 % (36.0-47.0); HEMOGLOBIN 11.7 g/dl (12.0-15.5); LYMPH # 3.4 10^3/uL (1.5-5.0); LYMPH % 30.5 % (24.0-44.0); MEAN CORPUSCULAR HGB CONC 29.4 g/dl (32.0-36.5); MEAN CORPUSCULAR VOLUME 81.6 fl (80.0-96.0); MONO # 0.6 10^3/uL (0.0-0.8); MONO % 5.6 % (2.0-8.0); NEUTROPHILS # 6.9 10^3/uL (1.5-8.5); PLATELET COUNT, AUTOMATED 272 10^3/uL (150-450); RED BLOOD COUNT 4.88 10^6/uL (4.00-5.40); WHITE BLOOD COUNT 11.3 10^3/uL (4.0-10.0)
[2021-02-04 17:29] LABS: INR 2.54; PROTHROMBIN TIME 27.7 SECONDS (12.7-14.5)
== END ==
LOC: M PLALAB 14:55
PROVIDERS: ATTEND Family Medicine
DX: Z86.711 Personal history of pulmonary embolism (principal)

== ENCOUNTER → 2021-04-06 | Outpatient (CLI) | payer MEDICARE, MEDICAID ==
[~2021-04-06] MED LIST changes: -MOME50SP; +NASO50SP3
[2021-04-06 17:40] LABS: INR 2.65; PROTHROMBIN TIME 28.6 SECONDS (12.7-14.5)
[2021-04-06 17:50] LABS: BASO # 0.1 10^3/uL (0.0-0.2); BASO % 0.7 % (0.0-1.0); EOS # 0.3 10^3/uL (0.0-0.5); EOS % 2.4 % (0.0-3.0); HEMATOCRIT 42.6 % (36.0-47.0); HEMOGLOBIN 12.4 g/dl (12.0-15.5); LYMPH % 34.8 % (24.0-44.0); MEAN CORPUSCULAR HEMOGLOBIN 24.5 pg (27.0-33.0); MEAN CORPUSCULAR HGB CONC 29.1 g/dl (32.0-36.5); MONO # 0.6 10^3/uL (0.0-0.8); MONO % 5.5 % (2.0-8.0); NEUTROPHILS # 6.4 10^3/uL (1.5-8.5); NEUTROPHILS % 56.3 % (36.0-66.0); PLATELET COUNT, AUTOMATED 318 10^3/uL (150-450); RED BLOOD COUNT 5.07 10^6/uL (4.00-5.40); WHITE BLOOD COUNT 11.5 10^3/uL (4.0-10.0)
[2021-04-06 18:03] LABS: ALBUMIN 3.2 GM/DL (3.2-5.2); ALT/SGPT 52 U/L (12-78); BILIRUBIN,TOTAL 0.4 MG/DL (0.2-1.0); BLOOD UREA NITROGEN 13 MG/DL (7-18); C REACTIVE PROTEIN QUANTITATIV 2.35 MG/DL (0.00-0.30); CALCIUM LEVEL 8.7 MG/DL (8.8-10.2); CARBON DIOXIDE LEVEL 29 MEQ/L (21-32); CHLORIDE LEVEL 105 MEQ/L (98-107); CHOLESTEROL LEVEL 155 MG/DL (<200); CREATININE FOR GFR 0.97 MG/DL (0.55-1.30); FERRITIN 14 NG/ML (8-252); FREE T4 1.27 NG/DL (0.76-1.46); GLOMERULAR FILTRATION RATE > 60.0 (>45); GLUCOSE, FASTING 109 MG/DL (70-100); HDL CHOLESTEROL 52 MG/DL (>40); LDL CHOLESTEROL 59 MG/DL (<100); NON-HDL-C 103 MG/DL; PHOSPHORUS LEVEL 2.5 MG/DL (2.5-4.9); PTH INTACT 215.2 PG/ML (18.5-88.0); SODIUM LEVEL 141 MEQ/L (136-145); TOTAL 25(OH) VITAMIN D 96.8 NG/ML (30.0-100.0); TOTAL PROTEIN 7.2 GM/DL (6.4-8.2); TRIGLYCERIDES LEVEL 222 MG/DL (<150)
[2021-04-06 19:15] LABS: ERYTHROCYTE SEDIMENTATION RATE 41 mm/hr (0-30)
== END ==
LOC: M PLALAB 12:01
PROVIDERS: ATTEND Family Medicine
DX: E55.9 Vitamin D deficiency, unspecified (principal); E78.5 Hyperlipidemia, unspecified; E03.9 Hypothyroidism, unspecified; R73.01 Impaired fasting glucose; Z86.711 Personal history of pulmonary embolism

== ENCOUNTER → 2021-05-20 | Outpatient (CLI) | payer MEDICARE, MEDICAID ==
[2021-05-20 14:52] LABS: INR 2.08; PROTHROMBIN TIME 23.8 SECONDS (12.7-14.5)
[2021-05-20 15:20] LABS: BILIRUBIN,TOTAL 0.5 MG/DL (0.2-1.0); CALCIUM LEVEL 8.9 MG/DL (8.8-10.2); CREATININE FOR GFR 1.02 MG/DL (0.55-1.30); FREE T4 1.54 NG/DL (0.76-1.46); GLOMERULAR FILTRATION RATE 58.5 (>45); POTASSIUM SERUM 3.9 MEQ/L (3.5-5.1); THYROID STIMULATING HORMONE 0.134 uIU/ML (0.358-3.740); TOTAL PROTEIN 6.6 GM/DL (6.4-8.2)
[2021-05-21 10:44] LABS: TOTAL 25(OH) VITAMIN D 90.7 NG/ML (30.0-100.0)
[2021-05-21 10:45] LABS: PTH INTACT 135.1 PG/ML (18.5-88.0)
== END ==
LOC: M PLALAB 11:13
PROVIDERS: ATTEND Family Medicine
DX: R74.8 Abnormal levels of other serum enzymes (principal); E55.9 Vitamin D deficiency, unspecified; D50.9 Iron deficiency anemia, unspecified

== ENCOUNTER → 2021-07-02 | Outpatient (CLI) | payer MEDICARE, MEDICAID ==
[2021-07-02 15:45] LABS: BASO # 0.1 10^3/uL (0.0-0.2); BASO % 0.5 % (0.0-1.0); EOS # 0.2 10^3/uL (0.0-0.5); EOS % 1.7 % (0.0-3.0); HEMATOCRIT 42.4 % (36.0-47.0); HEMOGLOBIN 12.4 g/dl (12.0-15.5); LYMPH # 3.6 10^3/uL (1.5-5.0); LYMPH % 31.2 % (24.0-44.0); MEAN CORPUSCULAR HEMOGLOBIN 23.8 pg (27.0-33.0); MEAN CORPUSCULAR HGB CONC 29.2 g/dl (32.0-36.5); MEAN CORPUSCULAR VOLUME 81.2 fl (80.0-96.0); MONO # 0.7 10^3/uL (0.0-0.8); MONO % 5.7 % (2.0-8.0); NEUTROPHILS % 60.6 % (36.0-66.0); PLATELET COUNT, AUTOMATED 293 10^3/uL (150-450); RED BLOOD COUNT 5.22 10^6/uL (4.00-5.40); WHITE BLOOD COUNT 11.5 10^3/uL (4.0-10.0)
[2021-07-02 16:02] LABS: INR 3.03; PROTHROMBIN TIME 31.7 SECONDS (12.7-14.5)
[2021-07-02 16:25] LABS: ALBUMIN 3.2 GM/DL (3.2-5.2); CALCIUM LEVEL 8.9 MG/DL (8.8-10.2); CREATININE FOR GFR 1.07 MG/DL (0.55-1.30); FREE T4 1.02 NG/DL (0.76-1.46); GLOMERULAR FILTRATION RATE 55.3 (>45); PHOSPHORUS LEVEL 2.4 MG/DL (2.5-4.9); POTASSIUM SERUM 4.2 MEQ/L (3.5-5.1); PTH INTACT 134.6 PG/ML (18.5-88.0); THYROID STIMULATING HORMONE 2.23 uIU/ML (0.358-3.740); TOTAL 25(OH) VITAMIN D 102.8 NG/ML (30.0-100.0)
== END ==
LOC: M PLALAB 12:17
PROVIDERS: ATTEND Family Medicine
DX: E03.9 Hypothyroidism, unspecified (principal); E55.9 Vitamin D deficiency, unspecified; I10 Essential (primary) hypertension; D50.9 Iron deficiency anemia, unspecified; Z86.711 Personal history of pulmonary embolism; Z79.899 Other long term (current) drug therapy

== ENCOUNTER → 2021-07-13 | Outpatient (CLI) | payer MEDICARE, MEDICAID | LOC: M RAD 09:10 | PROVIDERS: ATTEND Family Medicine | DX: R74.8 Abnormal levels of other serum enzymes (principal) | CPT/HCPCS: 78306; A9503 ==

== ENCOUNTER → 2021-08-10 | Outpatient (CLI) | payer MEDICARE, MEDICAID | LOC: M WHC 12:03 | PROVIDERS: ATTEND Specialist | DX: Z12.31 Encounter for screening mammogram for malignant neoplasm of breast (principal); Z80.49 Family history of malignant neoplasm of other genital organs; Z80.3 Family history of malignant neoplasm of breast; Z80.41 Family history of malignant neoplasm of ovary; Z80.0 Family history of malignant neoplasm of digestive organs; Z86.018 Personal history of other benign neoplasm ==

== ENCOUNTER → 2021-08-10 | Outpatient (REF) | payer MEDICARE, MEDICAID | LOC: M SFHCWAGY 10:23 | PROVIDERS: ATTEND Specialist | DX: Z01.419 Encounter for gynecological examination (general) (routine) without abnormal findings (principal); R87.612 Low grade squamous intraepithelial lesion on cytologic smear of cervix (LGSIL) | CPT/HCPCS: 87624; G0123 ==

== ENCOUNTER → 2021-08-16 | Outpatient (CLI) | payer MEDICARE, MEDICAID | LOC: M WHC 12:53 | PROVIDERS: ATTEND Family Medicine | DX: M85.851 Other specified disorders of bone density and structure, right thigh (principal); M85.852 Other specified disorders of bone density and structure, left thigh; E55.9 Vitamin D deficiency, unspecified; D50.9 Iron deficiency anemia, unspecified ==

== ENCOUNTER → 2021-08-16 | Outpatient (CLI) | payer MEDICARE, MEDICAID ==
[2021-08-16 15:02] LABS: BASO # 0.1 10^3/uL (0.0-0.2); BASO % 0.4 % (0.0-1.0); EOS # 0.2 10^3/uL (0.0-0.5); EOS % 1.5 % (0.0-3.0); HEMATOCRIT 41.1 % (36.0-47.0); HEMOGLOBIN 12.2 g/dl (12.0-15.5); LYMPH # 3.1 10^3/uL (1.5-5.0); LYMPH % 26.2 % (24.0-44.0); MEAN CORPUSCULAR HEMOGLOBIN 24.3 pg (27.0-33.0); MEAN CORPUSCULAR HGB CONC 29.7 g/dl (32.0-36.5); MEAN CORPUSCULAR VOLUME 81.9 fl (80.0-96.0); MONO # 0.7 10^3/uL (0.0-0.8); MONO % 5.4 % (2.0-8.0); NEUTROPHILS # 7.9 10^3/uL (1.5-8.5); NEUTROPHILS % 66.2 % (36.0-66.0); PLATELET COUNT, AUTOMATED 298 10^3/uL (150-450); RED BLOOD COUNT 5.02 10^6/uL (4.00-5.40)
[2021-08-16 15:11] LABS: INR 2.24; PROTHROMBIN TIME 25.2 SECONDS (12.7-14.5)
[2021-08-16 15:29] LABS: ALBUMIN 3.1 GM/DL (3.2-5.2); CALCIUM LEVEL 8.9 MG/DL (8.8-10.2); CREATININE FOR GFR 1.18 MG/DL (0.55-1.30); GLOMERULAR FILTRATION RATE 49.4 (>45); POTASSIUM SERUM 4.3 MEQ/L (3.5-5.1)
[2021-08-16 15:48] LABS: PTH INTACT 92.8 PG/ML (18.5-88.0)
== END ==
LOC: M PLALAB 13:22
PROVIDERS: ATTEND Family Medicine
DX: E55.9 Vitamin D deficiency, unspecified (principal); D50.9 Iron deficiency anemia, unspecified

== ENCOUNTER → 2021-09-21 | Outpatient (CLI) | payer MEDICARE, MEDICAID ==
[2021-09-21 17:25] LABS: INR 2.05; PROTHROMBIN TIME 23.5 SECONDS (12.7-14.5)
== END ==
LOC: M PLALAB 15:19
PROVIDERS: ATTEND Family Medicine
DX: Z86.711 Personal history of pulmonary embolism (principal)

== ENCOUNTER → 2021-10-04 | Outpatient (CLI) | payer MEDICARE, MEDICAID ==
[~2021-10-04] MED LIST changes: +B-12100T2 PO; +CALC1CAP31 PO; +FAMO40TA3 PO; +LEVO137T2 PO; +LOSA25TA13 PO; +WARF-58 PO
== END ==
LOC: M LABSMTC 09:22
PROVIDERS: ATTEND Anesthesiology
DX: Z01.812 Encounter for preprocedural laboratory examination (principal); Z20.822 Contact with and (suspected) exposure to COVID-19

== ENCOUNTER 2021-10-08 06:07 | Observation (INO) | payer MEDICARE, MEDICAID ==
[~2021-10-08] VITALS: Ht 175.3 cm; Wt 131.8 kg
[2021-10-08] VITALS (9 sets, daily range): BP systolic 117–161; BP diastolic 53–85; O2SAT 93
[2021-10-08] MEDS ORDERED: LR 1,000 ML IV SCH ×2 (06:20→10:45)
[2021-10-08 06:43] LABS: PROTHROMBIN TIME 13.6 SECONDS (12.7-14.5)
[2021-10-08] MEDS ORDERED: MIDAZOLAM INJ 2MG/2ML VIAL (J2250 PER 1MG) As Ordered ONE (07:11)
[2021-10-08] MEDS ORDERED: propofoL 200 MG/20 ML VIAL As Ordered ONE (07:11)
[2021-10-08] MEDS ORDERED: dexameTHASONE 4 MG/ML 1ML VIAL (J1100 PER 1MG) As Ordered ONE (07:11)
[2021-10-08] MEDS ORDERED: ONDANSETRON 4MG 2ML VIAL As Ordered ONE (07:11)
[2021-10-08] MEDS ORDERED: fentaNYL 100 MCG/2 ML INJECTION As Ordered ONE ×2 (07:11→08:56)
[2021-10-08] MEDS ORDERED: BUPIVACAINE HCL 0.25% 30ML VIAL As Ordered ONE (07:21)
[2021-10-08] MEDS ORDERED: BACITRACIN OINTMENT 30GM TUBE As Ordered ONE (07:21)
[2021-10-08] MEDS ORDERED: CLINDAMYCIN 900 MG in IV 1 EA IV ONE (07:30)
[2021-10-08] MEDS ORDERED: MUPIROCIN 2% OINT 22 GM TUBE As Ordered ONE (08:33)
[2021-10-08] MEDS ORDERED: LABETALOL 100MG/20ML VIAL As Ordered ONE (09:51)
[2021-10-08] MEDS ORDERED: ESMOLOL INJ 100MG/10ML VIAL As Ordered ONE (10:38)
[2021-10-08] MEDS ORDERED: ONDANSETRON 4MG 2ML VIAL IV PRN (10:45)
[2021-10-08] MEDS ORDERED: MORPHINE 2 MG/ML 1ML VIAL IV PRN (10:45)
[2021-10-08] MEDS: fentaNYL 100 MCG/2 ML INJECTION IV PRN ×3 (10:57→11:06)
[2021-10-08] MEDS ORDERED: ACETAMINOPHEN *IV* 1,000 MG in IV 1 EA IV ONE (11:00)
[2021-10-08] MEDS ORDERED: ACET500P3 PO (11:02)
[2021-10-08] MEDS ORDERED: traMADol 50 MG TAB PO ONE (12:10)
[2021-10-08] MEDS ORDERED: hydrALAZINE 20MG/ML 1ML VIAL (J0360 PER 20MG) IV STA (14:22)
[2021-10-08] MEDS ORDERED: ALPRAZolam 0.25 MG TAB PO PRN (14:40)
[2021-10-08 15:17] LABS: HEMATOCRIT 36.6 % (36.0-47.0); HEMOGLOBIN 10.7 g/dl (12.0-15.5); MEAN CORPUSCULAR HEMOGLOBIN 23.6 pg (27.0-33.0); MEAN CORPUSCULAR HGB CONC 29.2 g/dl (32.0-36.5); MEAN CORPUSCULAR VOLUME 80.8 fl (80.0-96.0); PLATELET COUNT, AUTOMATED 239 10^3/uL (150-450); RED BLOOD COUNT 4.53 10^6/uL (4.00-5.40); WHITE BLOOD COUNT 12.3 10^3/uL (4.0-10.0)
[2021-10-08 15:29] LABS: INR 1.05; PARTIAL THROMBOPLASTIN TIME 23.5 SECONDS (25.9-37.0); PROTHROMBIN TIME 14.1 SECONDS (12.7-14.5)
[2021-10-08 15:42] LABS: BILIRUBIN,TOTAL 0.5 MG/DL (0.2-1.0); CALCIUM LEVEL 8.7 MG/DL (8.8-10.2); CREATININE FOR GFR 1.05 MG/DL (0.55-1.30); GLOMERULAR FILTRATION RATE 56.5 (>45); POTASSIUM SERUM 4.4 MEQ/L (3.5-5.1); TOTAL PROTEIN 6.3 GM/DL (6.4-8.2)
[2021-10-08] MEDS ORDERED: ALBUTEROL SULFATE 2.5 MG/0.5 ML INH NEB SOLN NEB PRN (15:45)
[2021-10-08] MEDS ORDERED: OMEPRAZOLE 20MG CAP PO SCH (21:00)
[2021-10-08] MEDS ORDERED: ROSUVASTATIN 10 MG TAB (CRESTOR) PO SCH (21:00)
[2021-10-08] MEDS ORDERED: MONTELUKAST 10 MG TAB PO SCH (21:00)
[2021-10-08] MEDS ORDERED: ESCITALOPRAM OXALATE 10 MG TAB (LEXAPRO) PO SCH (21:00)
[2021-10-08] MEDS ORDERED: CETIRIZINE (ZyrTEC) 10 MG TAB PO SCH (21:00)
[2021-10-08] MEDS: ACETAMINOPHEN TAB 650MG DOSE (2X325MG) PO PRN (23:36)
[2021-10-09] MEDS ORDERED: UNRESOLVED CLARIFICATION ENTRY XX SCH (00:01)
[2021-10-09 01:52] VITALS: O2SAT 95
[2021-10-09] MEDS: ADVAIR HFA 115/21MCG INHALER INH SCH ×2 (03:25→07:53)
[2021-10-09 06:00] VITALS: BP 135/78
[2021-10-09 07:17] LABS: HEMOGLOBIN 9.5 g/dl (12.0-15.5); MEAN CORPUSCULAR HEMOGLOBIN 23.7 pg (27.0-33.0); MEAN CORPUSCULAR HGB CONC 28.8 g/dl (32.0-36.5); MEAN CORPUSCULAR VOLUME 82.3 fl (80.0-96.0); PLATELET COUNT, AUTOMATED 236 10^3/uL (150-450); RED BLOOD COUNT 4.01 10^6/uL (4.00-5.40); WHITE BLOOD COUNT 10.7 10^3/uL (4.0-10.0)
[2021-10-09 07:43] LABS: BLOOD UREA NITROGEN 15 MG/DL (7-18); CALCIUM LEVEL 8.4 MG/DL (8.8-10.2); CARBON DIOXIDE LEVEL 27 MEQ/L (21-32); CHLORIDE LEVEL 111 MEQ/L (98-107); CREATININE FOR GFR 0.84 MG/DL (0.55-1.30); GLOMERULAR FILTRATION RATE > 60.0 (>45); GLUCOSE, FASTING 112 MG/DL (70-100); POTASSIUM SERUM 4.4 MEQ/L (3.5-5.1); SODIUM LEVEL 144 MEQ/L (136-145)
[2021-10-09 07:52] VITALS: O2SAT 96
[2021-10-09 08:00] VITALS: BP 141/75
[2021-10-09] MEDS: ACETAMINOPHEN TAB 650MG DOSE (2X325MG) PO PRN (08:07)
[2021-10-09] MEDS ORDERED: VENLAFAXINE **XR** 75MG CAPSULE PO SCH (09:00)
[2021-10-09] MEDS ORDERED: CALCIUM CARBONATE 500 MG CHEW U/D PO SCH (09:00)
[2021-10-09] MEDS ORDERED: PERC5TAB12 PO (09:33)
[2021-10-09 09:52] VITALS: O2SAT 93
[2021-10-09] MEDS ORDERED: traMADol 50 MG TAB PO PRN (10:00)
[2021-10-09] MEDS ORDERED: TRAM50TA2 PO (10:00)
== END 2021-10-09 13:40 | disposition home or self-care (01) ==
LOC: M SDC 06:07 → M MSPAV 06:08
PROVIDERS: ADMIT Internal Medicine; ATTEND Orthopaedic Surgery Hand Surgery
DX: J95.821 Acute postprocedural respiratory failure (principal); M24.542 Contracture, left hand; I16.0 Hypertensive urgency; I35.0 Nonrheumatic aortic (valve) stenosis; I10 Essential (primary) hypertension; E03.9 Hypothyroidism, unspecified; E78.5 Hyperlipidemia, unspecified; E55.9 Vitamin D deficiency, unspecified; D50.9 Iron deficiency anemia, unspecified; H81.10 Benign paroxysmal vertigo, unspecified ear; K21.9 Gastro-esophageal reflux disease without esophagitis; K44.9 Diaphragmatic hernia without obstruction or gangrene; D51.9 Vitamin B12 deficiency anemia, unspecified; F32.A Depression, unspecified; F41.0 Panic disorder [episodic paroxysmal anxiety]; G47.33 Obstructive sleep apnea (adult) (pediatric); M85.89 Other specified disorders of bone density and structure, multiple sites; J45.909 Unspecified asthma, uncomplicated; Z86.711 Personal history of pulmonary embolism; Z86.73 Personal history of transient ischemic attack (TIA), and cerebral infarction without residual deficits; F40.240 Claustrophobia; Z88.0 Allergy status to penicillin; Z88.1 Allergy status to other antibiotic agents; Z88.2 Allergy status to sulfonamides; Z91.040 Latex allergy status; Z88.5 Allergy status to narcotic agent; Z79.51 Long term (current) use of inhaled steroids; Z79.01 Long term (current) use of anticoagulants; Z79.899 Other long term (current) drug therapy
CPT/HCPCS: 26123; 26125; 36415; 71045; 76000; 80048; 80053; 83880; 84145; 85027; 85610; 85730; 88302; 94640; 97161; G0378; J0131; J0360; J1100; J2250; J2405; J3010

== ENCOUNTER → 2021-10-26 | Outpatient (CLI) | payer MEDICARE, MEDICAID ==
[~2021-10-26] MED LIST changes: +ACET500P3 PO; +PERC5TAB12 PO; +TRAM50TA2 PO
[2021-10-26 15:37] LABS: BASO # 0.1 10^3/uL (0.0-0.2); BASO % 0.5 % (0.0-1.0); EOS # 0.2 10^3/uL (0.0-0.5); EOS % 1.9 % (0.0-3.0); HEMATOCRIT 39.4 % (36.0-47.0); HEMOGLOBIN 11.8 g/dl (12.0-15.5); LYMPH # 2.9 10^3/uL (1.5-5.0); LYMPH % 28.5 % (24.0-44.0); MEAN CORPUSCULAR HEMOGLOBIN 24.1 pg (27.0-33.0); MEAN CORPUSCULAR HGB CONC 29.9 g/dl (32.0-36.5); MEAN CORPUSCULAR VOLUME 80.4 fl (80.0-96.0); MONO # 0.7 10^3/uL (0.0-0.8); MONO % 6.6 % (2.0-8.0); NEUTROPHILS # 6.3 10^3/uL (1.5-8.5); NEUTROPHILS % 62.2 % (36.0-66.0); PLATELET COUNT, AUTOMATED 334 10^3/uL (150-450); WHITE BLOOD COUNT 10.1 10^3/uL (4.0-10.0)
[2021-10-26 15:40] LABS: INR 1.5; PROTHROMBIN TIME 18.5 SECONDS (12.7-14.5)
[2021-10-26 15:58] LABS: ALBUMIN 3.3 GM/DL (3.2-5.2); ALT/SGPT 35 U/L (12-78); BILIRUBIN,TOTAL 0.6 MG/DL (0.2-1.0); BLOOD UREA NITROGEN 17 MG/DL (7-18); CARBON DIOXIDE LEVEL 25 MEQ/L (21-32); CHLORIDE LEVEL 106 MEQ/L (98-107); CREATININE FOR GFR 0.94 MG/DL (0.55-1.30); GLOMERULAR FILTRATION RATE > 60.0 (>45); GLUCOSE, FASTING 141 MG/DL (70-100); POTASSIUM SERUM 3.8 MEQ/L (3.5-5.1); SODIUM LEVEL 138 MEQ/L (136-145); TOTAL PROTEIN 6.9 GM/DL (6.4-8.2)
== END ==
LOC: M PLALAB 14:26
PROVIDERS: ATTEND Physician Assistant
DX: R42 Dizziness and giddiness (principal); E03.9 Hypothyroidism, unspecified; Z79.01 Long term (current) use of anticoagulants

== ENCOUNTER → 2021-11-02 | Outpatient (CLI) | payer MEDICARE, MEDICAID ==
[2021-11-02 16:09] LABS: INR 3.06; PROTHROMBIN TIME 31.9 SECONDS (12.7-14.5)
== END ==
LOC: M WUC 11:39
PROVIDERS: ATTEND Family Medicine
DX: D50.9 Iron deficiency anemia, unspecified (principal)

== ENCOUNTER → 2021-12-02 | Outpatient (CLI) | payer MEDICARE, MEDICAID | LOC: M SOG 13:59 | PROVIDERS: ATTEND Orthopaedic Surgery Hand Surgery | DX: M79.645 Pain in left finger(s) (principal) ==

== ENCOUNTER 2021-12-24 13:45 | Outpatient (CLI) | payer MEDICARE, MEDICAID ==
[~2021-12-24] VITALS: Ht 165.1 cm; Wt 128.0 kg
[~2021-12-24 13:45] MED LIST changes: +ZOLEDRONIC ACID 5 MG in IV 1 EA IV ONE
[2021-12-24 14:19] VITALS: BP 123/59
[2021-12-24 14:48] VITALS: BP 129/77
== END 2021-12-24 14:50 | disposition home or self-care (01) ==
LOC: M INFU 13:45
PROVIDERS: ATTEND Family Medicine
DX: M85.80 Other specified disorders of bone density and structure, unspecified site (principal)
CPT/HCPCS: 96365; J3489

== ENCOUNTER → 2022-01-04 | Outpatient (CLI) | payer MEDICARE, MEDICAID ==
[~2022-01-04] MED LIST changes: -ZOLEDRONIC ACID 5 MG in IV 1 EA IV ONE
== END ==
LOC: M SOG 08:49
PROVIDERS: ATTEND Orthopaedic Surgery Hand Surgery
DX: M79.645 Pain in left finger(s) (principal); M25.742 Osteophyte, left hand

== ENCOUNTER → 2022-02-11 | Outpatient (CLI) | payer MEDICARE, MEDICAID ==
[2022-02-11 14:05] LABS: BASO # 0.1 10^3/uL (0.0-0.2); BASO % 0.6 % (0.0-1.0); EOS # 0.2 10^3/uL (0.0-0.5); EOS % 1.7 % (0.0-3.0); HEMOGLOBIN 11.8 g/dl (12.0-15.5); LYMPH # 3.9 10^3/uL (1.5-5.0); LYMPH % 43.7 % (24.0-44.0); MEAN CORPUSCULAR HEMOGLOBIN 26.3 pg (27.0-33.0); MEAN CORPUSCULAR HGB CONC 31.9 g/dl (32.0-36.5); MEAN CORPUSCULAR VOLUME 82.6 fl (80.0-96.0); MONO # 0.6 10^3/uL (0.0-0.8); MONO % 6.5 % (2.0-8.0); NEUTROPHILS # 4.3 10^3/uL (1.5-8.5); NEUTROPHILS % 47.2 % (36.0-66.0); PLATELET COUNT, AUTOMATED 269 10^3/uL (150-450); RED BLOOD COUNT 4.48 10^6/uL (4.00-5.40)
[2022-02-11 14:17] LABS: INR 1.89
[2022-02-11 14:57] LABS: BLOOD UREA NITROGEN 15 MG/DL (7-18); CALCIUM LEVEL 8.6 MG/DL (8.8-10.2); CARBON DIOXIDE LEVEL 27 MEQ/L (21-32); CHLORIDE LEVEL 108 MEQ/L (98-107); CREATININE FOR GFR 0.86 MG/DL (0.55-1.30); FERRITIN 8 NG/ML (8-252); FREE T4 1.08 NG/DL (0.76-1.46); GLOMERULAR FILTRATION RATE > 60.0 (>45); GLUCOSE, FASTING 101 MG/DL (70-100); PHOSPHORUS LEVEL 2.8 MG/DL (2.5-4.9); POTASSIUM SERUM 3.5 MEQ/L (3.5-5.1); SODIUM LEVEL 142 MEQ/L (136-145)
[2022-02-11 15:17] LABS: TOTAL 25(OH) VITAMIN D 52.6 NG/ML (30.0-100.0)
[2022-02-11 15:19] LABS: PTH INTACT 169.7 PG/ML (18.5-88.0); VITAMIN B12 LEVEL 690 PG/ML (247-911)
== END ==
LOC: M PLALAB 09:47
PROVIDERS: ATTEND Family Medicine
DX: E55.9 Vitamin D deficiency, unspecified (principal); D50.9 Iron deficiency anemia, unspecified; E03.9 Hypothyroidism, unspecified; Z79.01 Long term (current) use of anticoagulants

== ENCOUNTER → 2022-03-22 | Outpatient (CLI) | payer MEDICARE, MEDICAID ==
[2022-03-22 15:28] LABS: INR 1.74; PROTHROMBIN TIME 20.6 SECONDS (12.5-14.5)
== END ==
LOC: M PLALAB 09:28
PROVIDERS: ATTEND Family Medicine
DX: Z79.01 Long term (current) use of anticoagulants (principal)

== ENCOUNTER → 2022-04-01 | Outpatient (CLI) | payer MEDICARE, MEDICAID | LOC: M SOG 08:11 | PROVIDERS: ATTEND Orthopaedic Surgery Hand Surgery | DX: M25.642 Stiffness of left hand, not elsewhere classified (principal); M19.142 Post-traumatic osteoarthritis, left hand ==

== ENCOUNTER → 2022-05-09 | Outpatient (CLI) | payer MEDICARE, MEDICAID ==
[2022-05-09 15:34] LABS: INR 1.57; PROTHROMBIN TIME 19.1 SECONDS (12.5-14.5)
== END ==
LOC: M PLALAB 14:10
PROVIDERS: ATTEND Family Medicine
DX: Z86.711 Personal history of pulmonary embolism (principal)

== ENCOUNTER → 2022-05-24 | Outpatient (CLI) | payer MEDICARE, MEDICAID ==
[2022-05-24 17:55] LABS: INR 1.76; PROTHROMBIN TIME 20.8 SECONDS (12.5-14.5)
== END ==
LOC: M PLALAB 15:09
PROVIDERS: ATTEND Family Medicine
DX: Z86.711 Personal history of pulmonary embolism (principal)

== ENCOUNTER → 2022-06-24 | Outpatient (CLI) | payer MEDICARE, MEDICAID ==
[~2022-06-24] MED LIST changes: +MONT-5 PO; -SING10TA32 PO
[2022-06-24 15:40] LABS: INR 1.63; PROTHROMBIN TIME 19.6 SECONDS (12.5-14.5)
== END ==
LOC: M PLALAB 13:04
PROVIDERS: ATTEND Family Medicine
DX: Z86.711 Personal history of pulmonary embolism (principal)

== ENCOUNTER → 2022-07-12 | Outpatient (CLI) | payer MEDICARE, MEDICAID ==
[2022-07-12 10:59] LABS: BASO # 0.1 10^3/uL (0.0-0.2); BASO % 0.5 % (0.0-1.0); EOS # 0.2 10^3/uL (0.0-0.5); EOS % 1.6 % (0.0-3.0); HEMATOCRIT 39.5 % (36.0-47.0); HEMOGLOBIN 11.3 g/dl (12.0-15.5); LYMPH # 3.3 10^3/uL (1.5-5.0); LYMPH % 33.6 % (24.0-44.0); MEAN CORPUSCULAR HEMOGLOBIN 23.3 pg (27.0-33.0); MEAN CORPUSCULAR HGB CONC 28.6 g/dl (32.0-36.5); MEAN CORPUSCULAR VOLUME 81.3 fl (80.0-96.0); MONO # 0.5 10^3/uL (0.0-0.8); MONO % 5.3 % (2.0-8.0); NEUTROPHILS # 5.8 10^3/uL (1.5-8.5); NEUTROPHILS % 58.8 % (36.0-66.0); PLATELET COUNT, AUTOMATED 283 10^3/uL (150-450); RED BLOOD COUNT 4.86 10^6/uL (4.00-5.40); WHITE BLOOD COUNT 9.8 10^3/uL (4.0-10.0)
[2022-07-12 11:05] LABS: ERYTHROCYTE SEDIMENTATION RATE 85 mm/hr (0-30)
[2022-07-12 11:21] LABS: HEMOGLOBIN A1c 5.5 % (4.0-6.0)
[2022-07-12 11:29] LABS: FERRITIN 6.3 NG/ML (7.3-270.7); THYROID STIMULATING HORMONE 1.253 uIU/ML (0.55-4.78)
[2022-07-12 11:30] LABS: TOTAL 25(OH) VITAMIN D 50.4 NG/ML (20.0-100.0)
[2022-07-12 11:31] LABS: COMPLEMENT C3 183.7 MG/DL (90.0-170.0); FREE T4 1.51 NG/DL (0.89-1.76)
[2022-07-12 11:32] LABS: COMPLEMENT C4 40.5 MG/DL (12-36)
[2022-07-12 11:33] LABS: BLOOD UREA NITROGEN 11 MG/DL (9-23); CALCIUM LEVEL 8.3 MG/DL (8.3-10.6); CARBON DIOXIDE LEVEL 27 MMOL/L (20-31); CHLORIDE LEVEL 106 MMOL/L (98-107); CHOLESTEROL LEVEL 161 MG/DL (<200); CHOLESTEROL RISK RATIO 2.84 (<5); CREATININE FOR GFR 0.88 MG/DL (0.55-1.30); GLOMERULAR FILTRATION RATE > 60.0 (>45); GLUCOSE, FASTING 85 MG/DL (74-106); HDL CHOLESTEROL 56.5 MG/DL (>40); LDL CHOLESTEROL 71.9 MG/DL (<100); NON-HDL-C 104.5 MG/DL; PHOSPHORUS LEVEL 2.6 MG/DL (2.4-5.1); POTASSIUM SERUM 3.9 MMOL/L (3.5-5.1); PTH INTACT 286.3 PG/ML (18.5-88.0); SODIUM LEVEL 140 MMOL/L (136-145); TRIGLYCERIDES LEVEL 163 MG/DL (<150)
[2022-07-12 11:40] LABS: INR 2.63; PROTHROMBIN TIME 28.5 SECONDS (12.5-14.5)
[2022-07-13 23:07] LABS: ANA (HEP2) Positive (.); CYCLIC CITRULLINATED PEPTIDE 4 units (0-19); H PYLORI SERUM QUANT IgG ABY 0.07 (0.00-0.79); TISSUE TRANSGLUTAMINASE IgA <2 U/mL (0-3)
== END ==
LOC: M PLALAB 09:06
PROVIDERS: ATTEND Family Medicine
DX: E55.9 Vitamin D deficiency, unspecified (principal); D50.9 Iron deficiency anemia, unspecified; E03.9 Hypothyroidism, unspecified; M06.4 Inflammatory polyarthropathy; E78.5 Hyperlipidemia, unspecified; R73.01 Impaired fasting glucose; Z79.01 Long term (current) use of anticoagulants; Z79.899 Other long term (current) drug therapy

== ENCOUNTER 2022-07-18 09:22 | Outpatient (CLI) | payer MEDICARE, MEDICAID ==
[~2022-07-18] VITALS: Ht 175.3 cm; Wt 129.0 kg
[~2022-07-18 09:22] MED LIST changes: +ALBUTEROL SULFATE 2.5MG/0.5ML INH NEB SOLN INH PRN; +EPINEPHrine INJ 1 MG/ML 1ML AMP IM PRN; +diphenhydrAMINE 50MG/ML VIAL IV PRN; +methylPREDNISolone 125MG 2ML VIAL IV PRN
[2022-07-18 09:30] VITALS: BP 143/67
[2022-07-18] MEDS ORDERED: NS 1,000 ML IV SCH (09:30)
[2022-07-18] MEDS ORDERED: FERRIC CARBOXYMALTOSE INJ 750 MG in NS 250 ML (>50kg) IV ONE ×3 (09:30)
[2022-07-18] MEDS ORDERED: WARF-20 PO (10:00)
[2022-07-18] MEDS ORDERED: CLAR10CA3 PO (10:03)
[2022-07-18 11:20] VITALS: BP 121/58
== END 2022-07-18 11:20 | disposition home or self-care (01) ==
LOC: M INFU 09:22
PROVIDERS: ATTEND Family Medicine
DX: D50.9 Iron deficiency anemia, unspecified (principal); Z88.0 Allergy status to penicillin; Z88.2 Allergy status to sulfonamides; Z88.1 Allergy status to other antibiotic agents; Z88.5 Allergy status to narcotic agent; Z88.8 Allergy status to other drugs, medicaments and biological substances
CPT/HCPCS: 96365; J1439

== ENCOUNTER → 2022-08-04 | Outpatient (CLI) | payer MEDICARE, MEDICAID ==
[~2022-08-04] MED LIST changes: -ALBUTEROL SULFATE 2.5MG/0.5ML INH NEB SOLN INH PRN; +CLAR10CA3 PO; -EPINEPHrine INJ 1 MG/ML 1ML AMP IM PRN; +WARF-20 PO; -diphenhydrAMINE 50MG/ML VIAL IV PRN; -methylPREDNISolone 125MG 2ML VIAL IV PRN
[2022-08-04 18:29] LABS: INR 3.34; PROTHROMBIN TIME 34.4 SECONDS (12.5-14.5)
== END ==
LOC: M PLALAB 15:40
PROVIDERS: ATTEND Family Medicine
DX: D50.9 Iron deficiency anemia, unspecified (principal)

== ENCOUNTER → 2022-08-04 | Outpatient (CLI) | payer MEDICARE, MEDICAID | LOC: M SOG 14:06 | PROVIDERS: ATTEND Physician Assistant | DX: M79.645 Pain in left finger(s) (principal) ==

== ENCOUNTER → 2022-08-05 | Outpatient (CLI) | payer MEDICARE, MEDICAID ==
[~2022-08-05] MED LIST changes: +GLUCAGON INJ 1MG VIAL As Ordered ONE; +ISOVUE-370 76% 100ML VIAL As Ordered ONE; +NEULUMEX 0.1% SUSPENSION 450ML BOTTLE (FORMERLY VOLUMEN) As Ordered ONE
== END ==
LOC: M RAD 08:08
PROVIDERS: ATTEND Family Medicine
DX: D50.9 Iron deficiency anemia, unspecified (principal); K44.9 Diaphragmatic hernia without obstruction or gangrene; R93.89 Abnormal findings on diagnostic imaging of other specified body structures
CPT/HCPCS: 74177; J1610; Q9967

== ENCOUNTER → 2022-08-11 | Outpatient (CLI) | payer MEDICARE, MEDICAID ==
[~2022-08-11] MED LIST changes: -GLUCAGON INJ 1MG VIAL As Ordered ONE; -ISOVUE-370 76% 100ML VIAL As Ordered ONE; -NEULUMEX 0.1% SUSPENSION 450ML BOTTLE (FORMERLY VOLUMEN) As Ordered ONE
== END ==
LOC: M WHC 10:52
PROVIDERS: ATTEND Family Medicine
DX: Z12.31 Encounter for screening mammogram for malignant neoplasm of breast (principal)

== ENCOUNTER → 2022-08-12 | Outpatient (CLI) | payer MEDICARE, MEDICAID | LOC: M SOG 08:12 | PROVIDERS: ATTEND Orthopaedic Surgery | DX: M25.562 Pain in left knee (principal); M85.861 Other specified disorders of bone density and structure, right lower leg; M85.862 Other specified disorders of bone density and structure, left lower leg; M17.0 Bilateral primary osteoarthritis of knee ==

== ENCOUNTER → 2022-08-17 | Outpatient (CLI) | payer MEDICARE, MEDICAID | LOC: M WHC 13:37 | PROVIDERS: ATTEND Family Medicine | DX: N85.00 Endometrial hyperplasia, unspecified (principal) ==

== ENCOUNTER → 2022-08-19 | Outpatient (CLI) | payer MEDICARE, MEDICAID ==
[2022-08-19 17:21] LABS: INR 3.82; PROTHROMBIN TIME 38.2 SECONDS (12.5-14.5)
[2022-08-19 18:07] LABS: ALBUMIN 3.3 G/DL (3.2-5.2); BLOOD UREA NITROGEN 9 MG/DL (9-23); CALCIUM LEVEL 8.4 MG/DL (8.3-10.6); CARBON DIOXIDE LEVEL 26 MMOL/L (20-31); CHLORIDE LEVEL 105 MMOL/L (98-107); CREATININE FOR GFR 0.98 MG/DL (0.55-1.30); GLOMERULAR FILTRATION RATE > 60.0 (>45); GLUCOSE, FASTING 113 MG/DL (74-106); MAGNESIUM LEVEL 1.9 MG/DL (1.8-2.4); PHOSPHORUS LEVEL 2.3 MG/DL (2.4-5.1); PTH INTACT 279.6 PG/ML (18.5-88.0); RHEUMATOID FACTOR QUANT < 3.5 IU/ML (<14); SODIUM LEVEL 141 MMOL/L (136-145)
[2022-08-22 14:08] LABS: ANTINUCLEAR ANTIBODIES DIRECT Negative (Negative)
== END ==
LOC: M PLALAB 14:27
PROVIDERS: ATTEND Family Medicine
DX: E55.9 Vitamin D deficiency, unspecified (principal); M06.4 Inflammatory polyarthropathy; D50.9 Iron deficiency anemia, unspecified

== ENCOUNTER → 2022-08-23 | Outpatient (CLI) | payer MEDICARE, MEDICAID ==
[2022-08-23 18:41] LABS: INR 2.95; PROTHROMBIN TIME 31.2 SECONDS (12.5-14.5)
== END ==
LOC: M PLALAB 15:11
PROVIDERS: ATTEND Physician Assistant
DX: Z79.01 Long term (current) use of anticoagulants (principal)

== ENCOUNTER → 2022-08-25 | Outpatient (REF) | payer MEDICARE, MEDICAID | LOC: M SFHCWAGY 17:07 | PROVIDERS: ATTEND Nurse Practitioner Family | DX: Z12.4 Encounter for screening for malignant neoplasm of cervix (principal); D26.1 Other benign neoplasm of corpus uteri; R87.612 Low grade squamous intraepithelial lesion on cytologic smear of cervix (LGSIL) ==

== ENCOUNTER → 2022-09-13 | Outpatient (REF) | payer MEDICARE, MEDICAID ==
[2022-09-13 17:17] LABS: INR 2.16; PROTHROMBIN TIME 24.5 SECONDS (12.5-14.5)
== END ==
LOC: M SFHCPLAZ 16:02
PROVIDERS: ATTEND Physician Assistant
DX: Z79.01 Long term (current) use of anticoagulants (principal)

== ENCOUNTER 2022-10-01 14:03 | Emergency (ER) | payer MEDICARE, MEDICAID ==
[~2022-10-01] VITALS: Ht 172.7 cm; Wt 131.0 kg
[2022-10-01] MEDS ORDERED: IPRATROPIUM 0.5MG/ALBUTEROL 2.5MG INH SOL UD 3ML (DUONEB) NEB ONE (14:50)
[2022-10-01 15:17] LABS: BASO % 0.4 % (0.0-1.0); EOS # 0.1 10^3/uL (0.0-0.5); EOS % 1.2 % (0.0-3.0); HEMATOCRIT 40.1 % (36.0-47.0); HEMOGLOBIN 12.7 g/dl (12.0-15.5); LYMPH # 2.5 10^3/uL (1.5-5.0); LYMPH % 24.7 % (24.0-44.0); MEAN CORPUSCULAR HEMOGLOBIN 27.4 pg (27.0-33.0); MEAN CORPUSCULAR HGB CONC 31.7 g/dl (32.0-36.5); MEAN CORPUSCULAR VOLUME 86.4 fl (80.0-96.0); MONO # 0.4 10^3/uL (0.0-0.8); MONO % 4.4 % (2.0-8.0); NEUTROPHILS # 6.9 10^3/uL (1.5-8.5); PLATELET COUNT, AUTOMATED 221 10^3/uL (150-450); RED BLOOD COUNT 4.64 10^6/uL (4.00-5.40)
[2022-10-01 15:30] LABS: INR 1.73; PROTHROMBIN TIME 20.6 SECONDS (12.5-14.5)
[2022-10-01 15:37] LABS: BLOOD UREA NITROGEN 14 MG/DL (9-23); CARBON DIOXIDE LEVEL 25 MMOL/L (20-31); CHLORIDE LEVEL 107 MMOL/L (98-107); CREATININE FOR GFR 0.82 MG/DL (0.55-1.30); GLOMERULAR FILTRATION RATE > 60.0 (>45); GLUCOSE, FASTING 111 MG/DL (74-106); POTASSIUM SERUM 3.9 MMOL/L (3.5-5.1); SODIUM LEVEL 140 MMOL/L (136-145)
[2022-10-01 15:48] LABS: RSV AMPLIFICATION NEGATIVE (NEGATIVE)
[2022-10-01] MEDS ORDERED: PRED20TA PO (16:59)
[2022-10-01] MEDS ORDERED: BENZ200C70 PO (16:59)
[2022-10-01] MEDS ORDERED: predniSONE 20 MG TAB PO ONE (17:00)
[2022-10-01 17:12] VITALS: BP 169/75; TEMP 97.9; O2SAT 95
== END 2022-10-01 17:58 | disposition home or self-care (01) ==
LOC: M ED 14:03
DX: J45.901 Unspecified asthma with (acute) exacerbation (principal); Z79.02 Long term (current) use of antithrombotics/antiplatelets; Z79.899 Other long term (current) drug therapy; Z88.8 Allergy status to other drugs, medicaments and biological substances; Z88.0 Allergy status to penicillin; Z88.2 Allergy status to sulfonamides; Z91.89 Other specified personal risk factors, not elsewhere classified; Z88.1 Allergy status to other antibiotic agents; Z88.5 Allergy status to narcotic agent
CPT/HCPCS: 71045; 80048; 83880; 85025; 85610; 87631; 93005; 93041; 94640; 94760; 99284; J7512

== ENCOUNTER 2022-10-07 14:44 | Emergency (ER) | payer MEDICARE, MEDICAID ==
[~2022-10-07] VITALS: Ht 172.7 cm; Wt 128.8 kg
[~2022-10-07 14:44] MED LIST changes: +BENZ200C70 PO; +PRED20TA PO
[2022-10-07] MEDS ORDERED: methylPREDNISolone 125MG 2ML VIAL IV ONE (16:20)
[2022-10-07] MEDS ORDERED: IPRATROPIUM 0.5MG/ALBUTEROL 2.5MG INH SOL UD 3ML (DUONEB) NEB ONE (16:20)
[2022-10-07 17:05] LABS: BASO % 0.1 % (0.0-1.0); EOS % 0.2 % (0.0-3.0); HEMATOCRIT 44.1 % (36.0-47.0); HEMOGLOBIN 13.8 g/dl (12.0-15.5); LYMPH # 1.6 10^3/uL (1.5-5.0); LYMPH % 12.1 % (24.0-44.0); MEAN CORPUSCULAR HEMOGLOBIN 27.6 pg (27.0-33.0); MEAN CORPUSCULAR HGB CONC 31.3 g/dl (32.0-36.5); MEAN CORPUSCULAR VOLUME 88.2 fl (80.0-96.0); MONO # 0.3 10^3/uL (0.0-0.8); MONO % 2.2 % (2.0-8.0); NEUTROPHILS # 11.4 10^3/uL (1.5-8.5); PLATELET COUNT, AUTOMATED 251 10^3/uL (150-450); WHITE BLOOD COUNT 13.4 10^3/uL (4.0-10.0)
[2022-10-07 17:21] LABS: BLOOD UREA NITROGEN 15 MG/DL (9-23); CALCIUM LEVEL 8.4 MG/DL (8.3-10.6); CARBON DIOXIDE LEVEL 26 MMOL/L (20-31); CHLORIDE LEVEL 105 MMOL/L (98-107); CREATININE FOR GFR 0.92 MG/DL (0.55-1.30); GLOMERULAR FILTRATION RATE > 60.0 (>45); GLUCOSE, FASTING 134 MG/DL (74-106); POTASSIUM SERUM 4.5 MMOL/L (3.5-5.1); SODIUM LEVEL 140 MMOL/L (136-145)
[2022-10-07 18:17] VITALS: O2SAT 94
[2022-10-07] MEDS ORDERED: ALBUTEROL SULFATE 2.5MG/0.5ML INH NEB SOLN NEB ONE (18:55)
[2022-10-07] MEDS ORDERED: ISOVUE-370 76% 100ML VIAL As Ordered ONE (19:11)
[2022-10-07 20:52] LABS: CK-MB VALUE MASS < 1.0 NG/ML (<3.6)
[2022-10-07 20:56] LABS: CPK CREATINE PHOSPHOKINASE 50 U/L (34-145)
[2022-10-07] MEDS ORDERED: PRED20TA PO (21:10)
[2022-10-07 21:19] VITALS: BP 156/90; TEMP 97.6; O2SAT 96
== END 2022-10-07 21:21 | disposition home or self-care (01) ==
LOC: M ED 14:44
DX: J45.909 Unspecified asthma, uncomplicated (principal); J20.9 Acute bronchitis, unspecified; E78.5 Hyperlipidemia, unspecified; E03.9 Hypothyroidism, unspecified; Z79.899 Other long term (current) drug therapy; Z88.8 Allergy status to other drugs, medicaments and biological substances; Z88.0 Allergy status to penicillin; Z88.2 Allergy status to sulfonamides; Z88.1 Allergy status to other antibiotic agents; Z88.5 Allergy status to narcotic agent; Z91.89 Other specified personal risk factors, not elsewhere classified; Z91.040 Latex allergy status
CPT/HCPCS: 71045; 71275; 80048; 82550; 82553; 84484; 85025; 87486; 87581; 87633; 87798; 93005; 94640; 96374; 99284; J2930; Q9967

== ENCOUNTER → 2022-10-17 | Outpatient (CLI) | payer MEDICARE, MEDICAID ==
[2022-10-17 17:22] LABS: INR 3.22; PROTHROMBIN TIME 33.4 SECONDS (12.5-14.5)
[2022-10-17 17:42] LABS: ALBUMIN 3.1 G/DL (3.2-5.2); ALKALINE PHOSPHATASE 166 U/L (46-116); ALT/SGPT 29 U/L (7.0-40); AST/SGOT 16 U/L (<34); BILIRUBIN,TOTAL 0.6 MG/DL (0.3-1.2); BLOOD UREA NITROGEN 13 MG/DL (9-23); CALCIUM LEVEL 8.8 MG/DL (8.3-10.6); CARBON DIOXIDE LEVEL 28 MMOL/L (20-31); CHLORIDE LEVEL 105 MMOL/L (98-107); CREATININE FOR GFR 0.97 MG/DL (0.55-1.30); GLOMERULAR FILTRATION RATE > 60.0 (>45); GLUCOSE, FASTING 64 MG/DL (74-106); PTH INTACT 152.9 PG/ML (18.5-88.0); SODIUM LEVEL 138 MMOL/L (136-145)
[2022-10-17 17:43] LABS: FERRITIN 49.7 NG/ML (7.3-270.7); FREE T4 1.04 NG/DL (0.89-1.76); THYROID STIMULATING HORMONE 8.191 uIU/ML (0.55-4.78); TOTAL 25(OH) VITAMIN D 48.1 NG/ML (20.0-100.0)
== END ==
LOC: M PLALAB 15:15
PROVIDERS: ATTEND Family Medicine
DX: Z79.01 Long term (current) use of anticoagulants (principal); Z86.711 Personal history of pulmonary embolism; D50.9 Iron deficiency anemia, unspecified; E03.9 Hypothyroidism, unspecified; E55.9 Vitamin D deficiency, unspecified

== ENCOUNTER → 2022-11-01 | Outpatient (CLI) | payer MEDICARE, MEDICAID ==
[2022-11-01 18:26] LABS: INR 2.39; PROTHROMBIN TIME 26.5 SECONDS (12.5-14.5)
== END ==
LOC: M PLALAB 15:33
PROVIDERS: ATTEND Family Medicine
DX: Z86.711 Personal history of pulmonary embolism (principal)

== ENCOUNTER → 2022-11-22 | Outpatient (CLI) | payer MEDICARE, MEDICAID ==
[2022-11-22 17:32] LABS: INR 3.05
== END ==
LOC: M PLALAB 15:05
PROVIDERS: ATTEND Family Medicine
DX: Z86.711 Personal history of pulmonary embolism (principal)

== ENCOUNTER → 2022-12-23 | Outpatient (CLI) | payer MEDICARE, MEDICAID ==
[~2022-12-23] MED LIST changes: +ACET-683 PO; +ADV500INH INH; -POTA10808; +POTA10808 PO
[2022-12-23 18:24] LABS: INR 2.14; PROTHROMBIN TIME 23.4 SECONDS (12.5-14.5)
== END ==
LOC: M PLALAB 15:05
PROVIDERS: ATTEND Family Medicine
DX: Z79.01 Long term (current) use of anticoagulants (principal)

== ENCOUNTER → 2022-12-27 | Outpatient (CLI) | payer MEDICARE, MEDICAID ==
[2022-12-27 15:26] LABS: BASO # 0.1 10^3/uL (0.0-0.2); BASO % 0.5 % (0.0-1.0); EOS # 0.2 10^3/uL (0.0-0.5); HEMATOCRIT 45.8 % (36.0-47.0); HEMOGLOBIN 14.3 g/dl (12.0-15.5); LYMPH # 3.2 10^3/uL (1.5-5.0); LYMPH % 34.2 % (24.0-44.0); MEAN CORPUSCULAR HEMOGLOBIN 28.7 pg (27.0-33.0); MEAN CORPUSCULAR HGB CONC 31.2 g/dl (32.0-36.5); MONO # 0.6 10^3/uL (0.0-0.8); MONO % 5.9 % (2.0-8.0); NEUTROPHILS # 5.3 10^3/uL (1.5-8.5); NEUTROPHILS % 57.1 % (36.0-66.0); PLATELET COUNT, AUTOMATED 228 10^3/uL (150-450); RED BLOOD COUNT 4.98 10^6/uL (4.00-5.40); WHITE BLOOD COUNT 9.3 10^3/uL (4.0-10.0)
[2022-12-27 15:35] LABS: INR 2.52; PROTHROMBIN TIME 26.6 SECONDS (12.5-14.5)
[2022-12-27 15:59] LABS: ALBUMIN 3.3 G/DL (3.2-5.2); BILIRUBIN,TOTAL 0.6 MG/DL (0.3-1.2); CALCIUM LEVEL 8.8 MG/DL (8.3-10.6); CREATININE FOR GFR 1.01 MG/DL (0.55-1.30); GLOMERULAR FILTRATION RATE 58.9 (>45); POTASSIUM SERUM 4.1 MMOL/L (3.5-5.1); TOTAL PROTEIN 6.4 G/DL (5.7-8.2)
[2022-12-27 16:01] LABS: FERRITIN 22.7 NG/ML (7.3-270.7); THYROID STIMULATING HORMONE 19.378 uIU/ML (0.55-4.78)
[2022-12-27 16:02] LABS: FREE T4 0.78 NG/DL (0.89-1.76)
== END ==
LOC: M PLALAB 12:07
PROVIDERS: ATTEND Family Medicine
DX: D50.9 Iron deficiency anemia, unspecified (principal); E03.9 Hypothyroidism, unspecified; K76.0 Fatty (change of) liver, not elsewhere classified; Z79.01 Long term (current) use of anticoagulants

== ENCOUNTER → 2022-12-29 | Outpatient (REF) | payer MEDICARE, MEDICAID | LOC: M SFHCPLAZ 08:26 | PROVIDERS: ATTEND Family Medicine | DX: Z53.9 Procedure and treatment not carried out, unspecified reason (principal) ==

== ENCOUNTER 2023-01-02 08:35 | Observation (INO) | payer MEDICARE, MEDICAID ==
[~2023-01-02] VITALS: Ht 172.7 cm; Wt 128.0 kg
[2023-01-02] VITALS (8 sets, daily range): BP systolic 101–147; BP diastolic 55–66; TEMP 96.5–98.8; O2SAT 85–96
[~2023-01-02 08:35] MED LIST changes: -ACET-683 PO; -ADV500INH INH; +LIDOCAINE 2% 100MG/5ML SDV (FOR ANES.) As Ordered ONE; +LR 1,000 ML IV SCH; +MIDAZOLAM INJ 2MG/2ML VIAL As Ordered ONE; +ROCURONIUM BROMIDE 50MG/5ML VIAL As Ordered ONE; +fentaNYL 250 MCG/5 ML INJECTION As Ordered ONE; +propofoL 200 MG/20 ML VIAL As Ordered ONE
[2023-01-02 09:24] LABS: HEMATOCRIT 44.2 % (36.0-47.0); HEMOGLOBIN 13.7 g/dl (12.0-15.5); MEAN CORPUSCULAR HEMOGLOBIN 28.5 pg (27.0-33.0); MEAN CORPUSCULAR VOLUME 91.9 fl (80.0-96.0); PLATELET COUNT, AUTOMATED 244 10^3/uL (150-450); RED BLOOD COUNT 4.81 10^6/uL (4.00-5.40); WHITE BLOOD COUNT 11.7 10^3/uL (4.0-10.0)
[2023-01-02 09:31] LABS: INR 1.98
[2023-01-02] MEDS ORDERED: ceFAZolin SOD 1 GM in D5W MINI-BAG PLUS 50 ML IV ONE (09:35)
[2023-01-02] MEDS ORDERED: ceFAZolin SOD 2 GM in IV 1 EA IV ONE (09:35)
[2023-01-02] MEDS ORDERED: LACRILUBE (AKWA TEARS) OPHTH OINT 3.5GM As Ordered ONE (09:58)
[2023-01-02] MEDS ORDERED: HYDROmorphone HCL 2MG/ML 1ML VIAL As Ordered ONE (10:23)
[2023-01-02] MEDS ORDERED: LABETALOL 100MG/20ML VIAL As Ordered ONE (10:32)
[2023-01-02] MEDS ORDERED: KETOROLAC 60MG 2ML VIAL As Ordered ONE (10:34)
[2023-01-02] MEDS ORDERED: ONDANSETRON 4MG 2ML VIAL As Ordered ONE (10:34)
[2023-01-02] MEDS ORDERED: ACETAMINOPHEN 1000MG 100ML IV BAG As Ordered ONE (10:35)
[2023-01-02] MEDS ORDERED: SUGAMMADEX SODIUM 500 MG/5 ML VIAL (BRIDION) As Ordered ONE (10:35)
[2023-01-02] MEDS ORDERED: fentaNYL 100 MCG/2 ML INJECTION IV PRN (11:15)
[2023-01-02] MEDS ORDERED: LR 1,000 ML IV SCH (11:15)
[2023-01-02] MEDS ORDERED: ONDANSETRON 4MG 2ML VIAL IV PRN ×2 (11:15→11:55)
[2023-01-02] MEDS ORDERED: HYDROMORPHONE HCL 0.5 MG/ 0.5 ML SYRINGE IV PRN (11:15)
[2023-01-02] MEDS ORDERED: KETOROLAC 30 MG/ML 1ML VIAL IV PRN (11:55)
[2023-01-02] MEDS ORDERED: LEVO150T7 PO (14:58)
[2023-01-02] MEDS ORDERED: WARF-58 PO (14:58)
[2023-01-02] MEDS ORDERED: ADV500INH INH (14:58)
[2023-01-02] MEDS ORDERED: LEVAINH INH (14:58)
[2023-01-02] MEDS ORDERED: ACET-683 PO (14:58)
[2023-01-02] MEDS ORDERED: HOME MED LIST COMPLETE! XX SCH (15:00)
[2023-01-02] MEDS: LR 1,000 ML IV SCH ×2 (15:26→22:57)
[2023-01-02] MEDS ORDERED: ALPRAZolam 0.25 MG TAB PO PRN (17:20)
[2023-01-02] MEDS: ACETAMINOPHEN TAB 650MG DOSE (2X325MG) PO PRN (17:33)
[2023-01-02] MEDS: DOCUSATE SODIUM 100MG CAPSULE PO SCH (20:04)
[2023-01-02] MEDS ORDERED: MONTELUKAST 10 MG TAB PO SCH (21:00)
[2023-01-02] MEDS ORDERED: VENLAFAXINE **XR** 75MG CAPSULE PO SCH (21:00)
[2023-01-02] MEDS ORDERED: OMEPRAZOLE 20MG CAP PO SCH (21:00)
[2023-01-02] MEDS ORDERED: ESCITALOPRAM OXALATE 10 MG TAB (LEXAPRO) PO SCH (21:00)
[2023-01-03 02:00] VITALS: BP 128/60; TEMP 97; O2SAT 96
[2023-01-03] MEDS ORDERED: LEVOTHYROXINE 150MCG TABLET (0.15MG) PO SCH (06:00)
[2023-01-03 06:57] LABS: HEMATOCRIT 36.3 % (36.0-47.0); MEAN CORPUSCULAR HGB CONC 31.1 g/dl (32.0-36.5); MEAN CORPUSCULAR VOLUME 93.1 fl (80.0-96.0); PLATELET COUNT, AUTOMATED 188 10^3/uL (150-450); WHITE BLOOD COUNT 13.3 10^3/uL (4.0-10.0)
[2023-01-03 07:02] LABS: HEMOGLOBIN 11.3 g/dl (12.0-15.5)
[2023-01-03] MEDS: DOCUSATE SODIUM 100MG CAPSULE PO SCH (08:54)
[2023-01-03] MEDS: ACETAMINOPHEN TAB 650MG DOSE (2X325MG) PO PRN (08:54)
[2023-01-03] MEDS ORDERED: MOM 30ML SUSPENSION UDC PO PRN (10:10)
== END 2023-01-03 12:11 | disposition home or self-care (01) ==
LOC: M SDC 08:35 → M RR INP 08:36 → M MS4PR 14:02
PROVIDERS: ADMIT Specialist; ATTEND Specialist
DX: N84.0 Polyp of corpus uteri (principal); I10 Essential (primary) hypertension; E03.9 Hypothyroidism, unspecified; J45.909 Unspecified asthma, uncomplicated; I73.9 Peripheral vascular disease, unspecified; F41.9 Anxiety disorder, unspecified; F32.A Depression, unspecified; Z79.51 Long term (current) use of inhaled steroids; Z79.899 Other long term (current) drug therapy; Z86.718 Personal history of other venous thrombosis and embolism; G43.909 Migraine, unspecified, not intractable, without status migrainosus; G47.33 Obstructive sleep apnea (adult) (pediatric); Z86.73 Personal history of transient ischemic attack (TIA), and cerebral infarction without residual deficits; Z91.040 Latex allergy status; Z88.0 Allergy status to penicillin; Z88.8 Allergy status to other drugs, medicaments and biological substances; Z88.1 Allergy status to other antibiotic agents; Z88.5 Allergy status to narcotic agent; K44.9 Diaphragmatic hernia without obstruction or gangrene
CPT/HCPCS: 36415; 58571; 85027; 85610; 86850; 86900; 86901; 88307; 96361; 96374; G0378; J0131; J0665; J0690; J1100; J1170; J1885; J1920; J2250; J2405; J3010; S2900

== ENCOUNTER → 2023-01-06 | Outpatient (REF) | payer MEDICARE, MEDICAID ==
[~2023-01-06] MED LIST changes: +ACET-683 PO; +ADV500INH INH; -LIDOCAINE 2% 100MG/5ML SDV (FOR ANES.) As Ordered ONE; -LR 1,000 ML IV SCH; -MIDAZOLAM INJ 2MG/2ML VIAL As Ordered ONE; -ROCURONIUM BROMIDE 50MG/5ML VIAL As Ordered ONE; -fentaNYL 250 MCG/5 ML INJECTION As Ordered ONE; -propofoL 200 MG/20 ML VIAL As Ordered ONE
== END ==
LOC: M SFHCPLAZ 13:57
PROVIDERS: ATTEND Family Medicine
DX: K76.0 Fatty (change of) liver, not elsewhere classified (principal); D50.9 Iron deficiency anemia, unspecified

== ENCOUNTER 2023-01-11 15:07 | Outpatient (CLI) | payer MEDICARE, MEDICAID ==
[~2023-01-11] VITALS: Ht 174 cm; Wt 126.8 kg
[2023-01-11 15:15] VITALS: BP 176/74; O2SAT 96
[2023-01-11] MEDS ORDERED: ZOLEDRONIC ACID 5 MG in IV 1 EA IV ONE (15:30)
[2023-01-11 16:25] VITALS: BP 122/59; O2SAT 97
== END 2023-01-11 16:25 ==
LOC: M INFU 15:07
PROVIDERS: ATTEND Family Medicine
DX: M85.89 Other specified disorders of bone density and structure, multiple sites (principal); Z88.0 Allergy status to penicillin; Z88.1 Allergy status to other antibiotic agents; Z88.2 Allergy status to sulfonamides; Z88.5 Allergy status to narcotic agent; Z88.6 Allergy status to analgesic agent; Z88.8 Allergy status to other drugs, medicaments and biological substances; Z91.048 Other nonmedicinal substance allergy status; Z91.040 Latex allergy status
CPT/HCPCS: 96365; J3489

== ENCOUNTER 2023-01-31 06:48 | Inpatient (IN) | payer MEDICARE, MEDICAID ==
[~2023-01-31] VITALS: Ht 175.3 cm; Wt 119.6 kg
[2023-01-31] MEDS ORDERED: LEVA1.2519 NEB (06:59)
[2023-01-31] MEDS ORDERED: IPRATROPIUM 0.5MG/ALBUTEROL 2.5MG INH SOL UD 3ML (DUONEB) NEB ONE (07:45)
[2023-01-31] MEDS ORDERED: ALBUTEROL SULFATE 2.5MG/0.5ML INH NEB SOLN INH ONE (07:45)
[2023-01-31] MEDS ORDERED: methylPREDNISolone 125MG 2ML VIAL IV ONE (07:45)
[2023-01-31] MEDS ORDERED: NS 500 ML IV ONE (08:25)
[2023-01-31 08:33] LABS: ABG BASE EXCESS 3.6 (-2.0-2.0); ABG HCO3 27.8 MMOL/L (22.0-26.0); ABG O2 SATURATION 91.1 % (95.0-99.0); ABG PARTIAL PRESSURE CO2 40.5 mmHg (35.0-45.0); ABG PARTIAL PRESSURE O2 57.7 mmHg (75.0-100.0); ABG STANDARD HCO3 27.5 MMOL/L. (22.0-26.0); ABG pH (ARTERIAL) 7.454 UNITS (7.350-7.450)
[2023-01-31] MEDS ORDERED: POTASSIUM CHLORIDE 10MEQ SR TABLET PO ONE ×2 (09:10→22:45)
[2023-01-31] MEDS ORDERED: KCL 10MEQ/100ML SWI (KRUN) 10 MEQ in IV 1 EA IV ONE ×2 (09:10→22:45)
[2023-01-31] MEDS ORDERED: ISOVUE-370 76% 100ML VIAL As Ordered ONE (09:18)
[2023-01-31 09:39] LABS: BASO # 0.1 10^3/uL (0.0-0.2); BASO % 0.7 % (0.0-1.0); EOS # 0.2 10^3/uL (0.0-0.5); EOS % 1.8 % (0.0-3.0); HEMATOCRIT 38.6 % (36.0-47.0); HEMOGLOBIN 13.8 g/dl (12.0-15.5); LYMPH # 2.8 10^3/uL (1.5-5.0); LYMPH % 30.6 % (24.0-44.0); MEAN CORPUSCULAR HEMOGLOBIN 32.8 pg (27.0-33.0); MEAN CORPUSCULAR HGB CONC 35.8 g/dl (32.0-36.5); MEAN CORPUSCULAR VOLUME 91.7 fl (80.0-96.0); MONO # 0.6 10^3/uL (0.0-0.8); MONO % 6.2 % (2.0-8.0); NEUTROPHILS # 5.6 10^3/uL (1.5-8.5); NEUTROPHILS % 60.5 % (36.0-66.0); PLATELET COUNT, AUTOMATED 281 10^3/uL (150-450); RED BLOOD COUNT 4.21 10^6/uL (4.00-5.40); WHITE BLOOD COUNT 9.2 10^3/uL (4.0-10.0)
[2023-01-31 09:52] LABS: CPK CREATINE PHOSPHOKINASE 55 U/L (34-145)
[2023-01-31 09:53] LABS: CK-MB VALUE MASS < 1.0 NG/ML (<3.6); MB/CK RELATIVE INDEX 1.81 (< OR =4)
[2023-01-31 09:56] LABS: THYROID STIMULATING HORMONE 4.255 uIU/ML (0.55-4.78); THYROXINE (T4) 13.5 UG/DL (4.5-10.9)
[2023-01-31 10:00] LABS: ALBUMIN 3.2 G/DL (3.2-5.2); ALKALINE PHOSPHATASE 180 U/L (46-116); ALT/SGPT 27 U/L (7.0-40); AST/SGOT 29 U/L (<34); BILIRUBIN,DIRECT 0.3 MG/DL (<0.4); BILIRUBIN,TOTAL 0.8 MG/DL (0.3-1.2); BLOOD UREA NITROGEN 13 MG/DL (9-23); CALCIUM LEVEL 8.5 MG/DL (8.3-10.6); CARBON DIOXIDE LEVEL 28 MMOL/L (20-31); CHLORIDE LEVEL 105 MMOL/L (98-107); CREATININE FOR GFR 0.94 MG/DL (0.55-1.30); GLOMERULAR FILTRATION RATE > 60.0 (>45); GLUCOSE, FASTING 109 MG/DL (74-106); MAGNESIUM LEVEL 2.2 MG/DL (1.8-2.4); POTASSIUM SERUM 2.7 MMOL/L (3.5-5.1); SODIUM LEVEL 145 MMOL/L (136-145); TOTAL PROTEIN 6.5 G/DL (5.7-8.2)
[2023-01-31 10:01] LABS: INR 2.46; PROTHROMBIN TIME 26.1 SECONDS (12.5-14.5)
[2023-01-31 10:18] LABS: CPK CREATINE PHOSPHOKINASE 64 U/L (34-145)
[2023-01-31 10:22] LABS: CK-MB VALUE MASS < 1.0 NG/ML (<3.6); MB/CK RELATIVE INDEX 1.56 (< OR =4)
[2023-01-31] MEDS ORDERED: cefTRIAXone SOD 1 GM in D5W MINI-BAG PLUS 50 ML IV ONE (10:55)
[2023-01-31] MEDS ORDERED: DOXYCYCLINE HYCLATE 100MG TABLET PO ONE (10:55)
[2023-01-31] MEDS ORDERED: MED REC IN PROGRESS XX SCH (10:55)
[2023-01-31] MEDS ORDERED: LORA-930 PO (12:32)
[2023-01-31] MEDS ORDERED: HOME MED LIST COMPLETE! XX SCH (12:40)
[2023-01-31] MEDS ORDERED: ALPRAZolam 0.25 MG TAB PO PRN (14:15)
[2023-01-31] MEDS ORDERED: ACETAMINOPHEN TAB 650MG DOSE (2X325MG) PO PRN (14:20)
[2023-01-31] MEDS: methylPREDNISolone 40MG 1ML VIAL IV SCH ×2 (16:17→21:15)
[2023-01-31] MEDS: ALBUTEROL SULFATE 2.5MG/0.5ML INH NEB SOLN NEB SCH ×3 (16:44→23:08)
[2023-01-31] MEDS ORDERED: CALCITRIOL 0.25 MCG CAP (S0169) PO SCH (17:00)
[2023-01-31] MEDS ORDERED: WARFARIN SOD 3MG TAB PO SCH (17:00)
[2023-01-31] MEDS: DOCUSATE SODIUM 100MG CAPSULE PO SCH ×2 (18:21→21:00)
[2023-01-31 18:41] VITALS: BP 167/89; TEMP 97.5; O2SAT 94
[2023-01-31 18:59] VITALS: BP 180/74; TEMP 97.1; O2SAT 93
[2023-01-31 20:46] LABS: BLOOD UREA NITROGEN 13 MG/DL (9-23); CARBON DIOXIDE LEVEL 25 MMOL/L (20-31); CHLORIDE LEVEL 105 MMOL/L (98-107); CREATININE FOR GFR 0.93 MG/DL (0.55-1.30); GLOMERULAR FILTRATION RATE > 60.0 (>45); GLUCOSE, FASTING 263 MG/DL (74-106); POTASSIUM SERUM 3.1 MMOL/L (3.5-5.1); SODIUM LEVEL 137 MMOL/L (136-145)
[2023-01-31] MEDS ORDERED: VENLAFAXINE **XR** 75MG CAPSULE PO SCH (21:00)
[2023-01-31] MEDS ORDERED: OMEPRAZOLE 20MG CAP PO SCH (21:00)
[2023-01-31] MEDS ORDERED: MONTELUKAST 10 MG TAB PO SCH (21:00)
[2023-01-31] MEDS ORDERED: LORATADINE 10 MG TAB PO SCH (21:00)
[2023-01-31] MEDS ORDERED: LOSARTAN 25 MG TAB PO SCH (21:00)
[2023-01-31] MEDS: ADVAIR HFA 230/21MCG INHALER INH SCH (21:00)
[2023-01-31] MEDS ORDERED: ESCITALOPRAM OXALATE 10 MG TAB (LEXAPRO) PO SCH (21:00)
[2023-01-31] MEDS ORDERED: CETIRIZINE (ZyrTEC) 10 MG TAB PO SCH (21:00)
[2023-01-31] MEDS ORDERED: ROSUVASTATIN 10 MG TAB (CRESTOR) PO SCH (21:00)
[2023-01-31 21:16] VITALS: BP 180/74
[2023-01-31] MEDS: DOXYCYCLINE HYCLATE 100MG TABLET PO SCH (21:17)
[2023-01-31] MEDS: CALCIUM CARBONATE 500 MG CHEW U/D PO SCH (21:17)
[2023-01-31] MEDS: POTASSIUM CHLORIDE 10MEQ SR TABLET PO SCH (21:18)
[2023-01-31 23:31] VITALS: BP 134/64; TEMP 97.8; O2SAT 92
[2023-02-01] MEDS ORDERED: CEPACOL LOZENGE PO PRN (02:05)
[2023-02-01 03:00] VITALS: BP 124/59; TEMP 98.1; O2SAT 95
[2023-02-01] MEDS: ALBUTEROL SULFATE 2.5MG/0.5ML INH NEB SOLN NEB SCH ×2 (03:11→07:07)
[2023-02-01 04:35] LABS: BASO % 0.1 % (0.0-1.0); HEMATOCRIT 37.3 % (36.0-47.0); HEMOGLOBIN 12.2 g/dl (12.0-15.5); LYMPH # 1.4 10^3/uL (1.5-5.0); LYMPH % 13.4 % (24.0-44.0); MEAN CORPUSCULAR HEMOGLOBIN 28.9 pg (27.0-33.0); MEAN CORPUSCULAR VOLUME 88.4 fl (80.0-96.0); MONO # 0.1 10^3/uL (0.0-0.8); MONO % 1.3 % (2.0-8.0); NEUTROPHILS # 8.5 10^3/uL (1.5-8.5); NEUTROPHILS % 84.5 % (36.0-66.0); PLATELET COUNT, AUTOMATED 290 10^3/uL (150-450); RED BLOOD COUNT 4.22 10^6/uL (4.00-5.40); WHITE BLOOD COUNT 10.1 10^3/uL (4.0-10.0)
[2023-02-01 04:38] LABS: BLOOD UREA NITROGEN 14 MG/DL (9-23); CALCIUM LEVEL 8.8 MG/DL (8.3-10.6); CARBON DIOXIDE LEVEL 26 MMOL/L (20-31); CHLORIDE LEVEL 105 MMOL/L (98-107); CREATININE FOR GFR 0.86 MG/DL (0.55-1.30); GLOMERULAR FILTRATION RATE > 60.0 (>45); GLUCOSE, FASTING 181 MG/DL (74-106); MAGNESIUM LEVEL 2.1 MG/DL (1.8-2.4); POTASSIUM SERUM 3.4 MMOL/L (3.5-5.1); SODIUM LEVEL 141 MMOL/L (136-145)
[2023-02-01 04:44] LABS: MEAN CORPUSCULAR HGB CONC 32.7 g/dl (32.0-36.5)
[2023-02-01] MEDS ORDERED: KCL 10MEQ/100ML SWI (KRUN) 10 MEQ in IV 1 EA IV ONE (05:15)
[2023-02-01] MEDS: methylPREDNISolone 40MG 1ML VIAL IV SCH (05:50)
[2023-02-01] MEDS ORDERED: LEVOTHYROXINE 150MCG TABLET (0.15MG) PO SCH (06:00)
[2023-02-01] MEDS: ADVAIR HFA 230/21MCG INHALER INH SCH (07:07)
[2023-02-01] MEDS: CALCIUM CARBONATE 500 MG CHEW U/D PO SCH (08:29)
[2023-02-01] MEDS: DOCUSATE SODIUM 100MG CAPSULE PO SCH (08:29)
[2023-02-01] MEDS: DOXYCYCLINE HYCLATE 100MG TABLET PO SCH (08:30)
[2023-02-01] MEDS: POTASSIUM CHLORIDE 10MEQ SR TABLET PO SCH (08:30)
[2023-02-01 08:46] VITALS: BP 135/61; TEMP 97.2; O2SAT 91
[2023-02-01] MEDS ORDERED: DOXY100T PO (08:51)
[2023-02-01] MEDS ORDERED: POTA10808 PO (08:51)
[2023-02-01] MEDS ORDERED: CEFD300CAP PO (08:51)
[2023-02-01] MEDS ORDERED: PRED20TA PO (08:51)
[2023-02-01 09:00] VITALS: O2SAT 92
[2023-02-01] MEDS ORDERED: cefTRIAXone SOD 1 GM in D5W MINI-BAG PLUS 50 ML IV SCH (11:00)
== END 2023-02-01 11:10 | disposition home or self-care (01) | DRG 194 ==
LOC: M ED 06:48 → M ED INP 12:35 → M PCU 18:28
PROVIDERS: ADMIT Internal Medicine Nephrology; ATTEND Internal Medicine Nephrology
DX: J18.9 Pneumonia, unspecified organism (principal); J45.41 Moderate persistent asthma with (acute) exacerbation; Q23.1 Congenital insufficiency of aortic valve; Q23.0 Congenital stenosis of aortic valve; E66.01 Morbid (severe) obesity due to excess calories; G47.33 Obstructive sleep apnea (adult) (pediatric); J45.909 Unspecified asthma, uncomplicated; E87.6 Hypokalemia; Z68.39 Body mass index [BMI] 39.0-39.9, adult; E03.9 Hypothyroidism, unspecified; E78.5 Hyperlipidemia, unspecified; G43.909 Migraine, unspecified, not intractable, without status migrainosus; F45.8 Other somatoform disorders; I10 Essential (primary) hypertension; R73.01 Impaired fasting glucose; E55.9 Vitamin D deficiency, unspecified; Z86.718 Personal history of other venous thrombosis and embolism; Z86.711 Personal history of pulmonary embolism; M17.0 Bilateral primary osteoarthritis of knee; K21.9 Gastro-esophageal reflux disease without esophagitis; K76.0 Fatty (change of) liver, not elsewhere classified; F44.81 Dissociative identity disorder; F32.9 Major depressive disorder, single episode, unspecified; F43.10 Post-traumatic stress disorder, unspecified; R94.31 Abnormal electrocardiogram [ECG] [EKG]; Z86.73 Personal history of transient ischemic attack (TIA), and cerebral infarction without residual deficits; Z85.828 Personal history of other malignant neoplasm of skin; Z90.49 Acquired absence of other specified parts of digestive tract; Z90.79 Acquired absence of other genital organ(s); Z80.41 Family history of malignant neoplasm of ovary; Z79.890 Hormone replacement therapy; Z79.01 Long term (current) use of anticoagulants; Z79.899 Other long term (current) drug therapy; Z88.0 Allergy status to penicillin; Z88.1 Allergy status to other antibiotic agents; Z88.2 Allergy status to sulfonamides; Z88.6 Allergy status to analgesic agent; Z88.8 Allergy status to other drugs, medicaments and biological substances; Z88.5 Allergy status to narcotic agent; Z91.040 Latex allergy status; Z91.048 Other nonmedicinal substance allergy status

== ENCOUNTER → 2023-02-08 | Outpatient (CLI) | payer MEDICARE, MEDICAID ==
[~2023-02-08] MED LIST changes: +CEFD300CAP PO; +DOXY100T PO; +LEVA1.2519 NEB; +LORA-930 PO
[2023-02-08 14:22] LABS: INR 3.34; PROTHROMBIN TIME 33.1 SECONDS (12.5-14.5)
[2023-02-08 14:38] LABS: CALCIUM LEVEL 9.8 MG/DL (8.3-10.6); CREATININE FOR GFR 1.36 MG/DL (0.55-1.30); GLOMERULAR FILTRATION RATE 41.8 (>45); POTASSIUM SERUM 4.2 MMOL/L (3.5-5.1)
== END ==
LOC: M PLALAB 09:32
PROVIDERS: ATTEND Nurse Practitioner Family
DX: E87.6 Hypokalemia (principal); Z86.711 Personal history of pulmonary embolism; Z79.01 Long term (current) use of anticoagulants

== ENCOUNTER → 2023-02-13 | Outpatient (CLI) | payer MEDICARE, MEDICAID | LOC: M CARPUL 14:36 | PROVIDERS: ATTEND Family Medicine | DX: I35.0 Nonrheumatic aortic (valve) stenosis (principal) ==

== ENCOUNTER → 2023-03-07 | Outpatient (CLI) | payer MEDICARE, MEDICAID ==
[2023-03-07 15:43] LABS: BASO # 0.1 10^3/uL (0.0-0.2); BASO % 0.7 % (0.0-1.0); EOS # 0.2 10^3/uL (0.0-0.5); EOS % 1.8 % (0.0-3.0); HEMATOCRIT 41.2 % (36.0-47.0); HEMOGLOBIN 13.4 g/dl (12.0-15.5); LYMPH # 4.1 10^3/uL (1.5-5.0); LYMPH % 45.6 % (24.0-44.0); MEAN CORPUSCULAR HEMOGLOBIN 29.8 pg (27.0-33.0); MEAN CORPUSCULAR HGB CONC 32.5 g/dl (32.0-36.5); MEAN CORPUSCULAR VOLUME 91.6 fl (80.0-96.0); MONO # 0.6 10^3/uL (0.0-0.8); MONO % 6.7 % (2.0-8.0); NEUTROPHILS % 44.9 % (36.0-66.0); PLATELET COUNT, AUTOMATED 334 10^3/uL (150-450)
[2023-03-07 16:10] LABS: INR 2.1; PROTHROMBIN TIME 22.8 SECONDS (12.5-14.5)
[2023-03-07 16:19] LABS: FERRITIN 20.7 NG/ML (7.3-270.7)
== END ==
LOC: M PLALAB 13:09
PROVIDERS: ATTEND Family Medicine
DX: K76.0 Fatty (change of) liver, not elsewhere classified (principal); D50.9 Iron deficiency anemia, unspecified

== ENCOUNTER → 2023-03-27 | Outpatient (CLI) | payer MEDICARE, MEDICAID | LOC: M SOG 07:57 | PROVIDERS: ATTEND Orthopaedic Surgery | DX: M25.562 Pain in left knee (principal); M25.561 Pain in right knee; M17.0 Bilateral primary osteoarthritis of knee ==

== ENCOUNTER → 2023-04-25 | Outpatient (CLI) | payer MEDICARE, MEDICAID ==
[2023-04-25 17:21] LABS: BASO # 0.1 10^3/uL (0.0-0.2); BASO % 0.4 % (0.0-1.0); EOS # 0.2 10^3/uL (0.0-0.5); EOS % 1.7 % (0.0-3.0); HEMATOCRIT 44.8 % (36.0-47.0); HEMOGLOBIN 13.8 g/dl (12.0-15.5); LYMPH # 3.8 10^3/uL (1.5-5.0); LYMPH % 33.4 % (24.0-44.0); MEAN CORPUSCULAR HEMOGLOBIN 27.8 pg (27.0-33.0); MEAN CORPUSCULAR HGB CONC 30.8 g/dl (32.0-36.5); MEAN CORPUSCULAR VOLUME 90.3 fl (80.0-96.0); MONO # 0.7 10^3/uL (0.0-0.8); MONO % 5.9 % (2.0-8.0); NEUTROPHILS # 6.7 10^3/uL (1.5-8.5); NEUTROPHILS % 58.3 % (36.0-66.0); PLATELET COUNT, AUTOMATED 251 10^3/uL (150-450); RED BLOOD COUNT 4.96 10^6/uL (4.00-5.40); WHITE BLOOD COUNT 11.4 10^3/uL (4.0-10.0)
[2023-04-25 17:35] LABS: INR 3.07; PROTHROMBIN TIME 30.5 SECONDS (12.5-14.5)
[2023-04-25 17:40] LABS: ALBUMIN 3.1 G/DL (3.2-5.2); ALKALINE PHOSPHATASE 189 U/L (46-116); ALT/SGPT 30 U/L (7.0-40); AST/SGOT 27 U/L (<34); BILIRUBIN,TOTAL 0.4 MG/DL (0.3-1.2); BLOOD UREA NITROGEN 16 MG/DL (9-23); CALCIUM LEVEL 8.9 MG/DL (8.3-10.6); CARBON DIOXIDE LEVEL 27 MMOL/L (20-31); CHLORIDE LEVEL 108 MMOL/L (98-107); CREATININE FOR GFR 0.95 MG/DL (0.55-1.30); GLOMERULAR FILTRATION RATE > 60.0 (>45); GLUCOSE, FASTING 100 MG/DL (74-106); POTASSIUM SERUM 4.1 MMOL/L (3.5-5.1); SODIUM LEVEL 144 MMOL/L (136-145); TOTAL PROTEIN 6.1 G/DL (5.7-8.2)
[2023-04-25 17:41] LABS: FERRITIN 17.2 NG/ML (7.3-270.7); PTH INTACT 54.5 PG/ML (18.5-88.0); THYROID STIMULATING HORMONE 4.004 uIU/ML (0.55-4.78)
[2023-04-25 17:42] LABS: FREE T4 1.11 NG/DL (0.89-1.76); TOTAL 25(OH) VITAMIN D 53.7 NG/ML (20.0-100.0)
[2023-04-25 17:54] LABS: ERYTHROCYTE SEDIMENTATION RATE 62 mm/hr (0-30)
== END ==
LOC: M PLALAB 15:19
PROVIDERS: ATTEND Family Medicine
DX: E03.9 Hypothyroidism, unspecified (principal); M06.4 Inflammatory polyarthropathy; D50.9 Iron deficiency anemia, unspecified; E55.9 Vitamin D deficiency, unspecified; Z86.711 Personal history of pulmonary embolism

== ENCOUNTER 2023-05-11 07:19 | Day surgery (SDC) | payer MEDICARE, MEDICAID ==
[~2023-05-11] VITALS: Ht 172.7 cm; Wt 120.0 kg
[~2023-05-11 07:19] MED LIST changes: +LIDOCAINE 2% 100MG/5ML SDV (FOR ANES.) As Ordered ONE; +NS 1,000 ML IV ONE; +propofoL 200 MG/20 ML VIAL As Ordered ONE
[2023-05-11 08:49] VITALS: TEMP 99.2
[2023-05-11 09:15] VITALS: BP 180/90; O2SAT 98
== END 2023-05-11 09:33 | disposition home or self-care (01) ==
LOC: M OPP 07:19
PROVIDERS: ATTEND Internal Medicine Gastroenterology
DX: K64.0 First degree hemorrhoids (principal); K57.30 Diverticulosis of large intestine without perforation or abscess without bleeding; D50.9 Iron deficiency anemia, unspecified; K31.89 Other diseases of stomach and duodenum; K21.00 Gastro-esophageal reflux disease with esophagitis, without bleeding; K44.9 Diaphragmatic hernia without obstruction or gangrene; G47.30 Sleep apnea, unspecified; Z99.89 Dependence on other enabling machines and devices; Z79.01 Long term (current) use of anticoagulants; Z79.02 Long term (current) use of antithrombotics/antiplatelets; Z79.1 Long term (current) use of non-steroidal anti-inflammatories (NSAID); Z79.51 Long term (current) use of inhaled steroids; Z79.52 Long term (current) use of systemic steroids; Z79.83 Long term (current) use of bisphosphonates; Z79.890 Hormone replacement therapy; Z79.899 Other long term (current) drug therapy; Z88.1 Allergy status to other antibiotic agents; Z88.5 Allergy status to narcotic agent; Z88.6 Allergy status to analgesic agent; Z91.048 Other nonmedicinal substance allergy status

== ENCOUNTER → 2023-08-03 | Outpatient (CLI) | payer MEDICARE, MEDICAID ==
[~2023-08-03] MED LIST changes: -LIDOCAINE 2% 100MG/5ML SDV (FOR ANES.) As Ordered ONE; -NS 1,000 ML IV ONE; -propofoL 200 MG/20 ML VIAL As Ordered ONE
[2023-08-03 15:14] LABS: BASO # 0.1 10^3/uL (0.0-0.2); BASO % 0.7 % (0.0-1.0); EOS # 0.2 10^3/uL (0.0-0.5); EOS % 2.1 % (0.0-3.0); HEMATOCRIT 44.2 % (36.0-47.0); HEMOGLOBIN 13.7 g/dl (12.0-15.5); LYMPH % 46.9 % (24.0-44.0); MEAN CORPUSCULAR HEMOGLOBIN 26.9 pg (27.0-33.0); MEAN CORPUSCULAR VOLUME 86.8 fl (80.0-96.0); MONO # 0.5 10^3/uL (0.0-0.8); NEUTROPHILS # 4.8 10^3/uL (1.5-8.5); PLATELET COUNT, AUTOMATED 259 10^3/uL (150-450); RED BLOOD COUNT 5.09 10^6/uL (4.00-5.40); WHITE BLOOD COUNT 10.7 10^3/uL (4.0-10.0)
[2023-08-03 15:22] LABS: ALKALINE PHOSPHATASE 185 U/L (46-116); ALT/SGPT 43 U/L (7.0-40); AST/SGOT 30 U/L (<34); BILIRUBIN,TOTAL 0.6 MG/DL (0.3-1.2); BLOOD UREA NITROGEN 15 MG/DL (9-23); CALCIUM LEVEL 8.3 MG/DL (8.3-10.6); CARBON DIOXIDE LEVEL 25 MMOL/L (20-31); CHLORIDE LEVEL 109 MMOL/L (98-107); CREATININE FOR GFR 0.89 MG/DL (0.55-1.30); GLOMERULAR FILTRATION RATE > 60.0 (>45); GLUCOSE, FASTING 86 MG/DL (74-106); POTASSIUM SERUM 4.1 MMOL/L (3.5-5.1); SODIUM LEVEL 141 MMOL/L (136-145); TOTAL PROTEIN 6.1 G/DL (5.7-8.2)
[2023-08-03 15:23] LABS: THYROID STIMULATING HORMONE 5.617 uIU/ML (0.55-4.78)
[2023-08-03 15:24] LABS: FERRITIN 11.4 NG/ML (7.3-270.7); TOTAL 25(OH) VITAMIN D 43.9 NG/ML (20.0-100.0)
[2023-08-03 15:25] LABS: FREE T4 1.27 NG/DL (0.89-1.76)
[2023-08-03 15:29] LABS: INR 2.05; PROTHROMBIN TIME 22.4 SECONDS (12.5-14.5)
[2023-08-03 15:40] LABS: HEMOGLOBIN A1c 5.4 % (4.0-6.0)
[2023-08-03 15:53] LABS: PTH INTACT 167.9 PG/ML (18.5-88.0)
== END ==
LOC: M PLALAB 11:48
PROVIDERS: ATTEND Family Medicine
DX: E55.9 Vitamin D deficiency, unspecified (principal); Z79.01 Long term (current) use of anticoagulants; E03.9 Hypothyroidism, unspecified; R73.01 Impaired fasting glucose; D50.9 Iron deficiency anemia, unspecified

== ENCOUNTER → 2023-08-04 | Outpatient (REF) | payer MEDICARE, MEDICAID | LOC: M SFHCPLAZ 15:04 | PROVIDERS: ATTEND Family Medicine | DX: D50.9 Iron deficiency anemia, unspecified (principal); E55.9 Vitamin D deficiency, unspecified; E78.5 Hyperlipidemia, unspecified ==

== ENCOUNTER 2023-08-21 09:27 | Outpatient (CLI) | payer MEDICARE, MEDICAID ==
[~2023-08-21] VITALS: Ht 175.3 cm; Wt 126.3 kg
[~2023-08-21 09:27] MED LIST changes: +ALBUTEROL SULFATE 2.5MG/0.5ML INH NEB SOLN INH PRN; +EPINEPHrine INJ 1 MG/ML 1ML AMP IM PRN; +NS 1,000 ML IV SCH; +diphenhydrAMINE 50MG/ML VIAL IV PRN; +methylPREDNISolone 125MG 2ML VIAL IV PRN
[2023-08-21 09:55] VITALS: BP 138/75; O2SAT 97
[2023-08-21] MEDS: IRON SUCROSE 500 MG in NS 250 ML OVER 4 HRS IV ONE (10:26)
[2023-08-21 11:30] VITALS: BP 120/62; O2SAT 98
[2023-08-21 12:30] VITALS: BP 129/64; O2SAT 100
[2023-08-21 13:30] VITALS: BP 109/57; O2SAT 98
[2023-08-21 14:30] VITALS: BP 21/77; O2SAT 97
== END 2023-08-21 14:35 ==
LOC: M INFU 09:27
PROVIDERS: ATTEND Family Medicine
DX: D50.9 Iron deficiency anemia, unspecified (principal); Z88.2 Allergy status to sulfonamides; Z88.0 Allergy status to penicillin; Z88.1 Allergy status to other antibiotic agents; Z88.8 Allergy status to other drugs, medicaments and biological substances; Z88.5 Allergy status to narcotic agent
CPT/HCPCS: 96365; 96366; J1756

== ENCOUNTER → 2023-08-25 | Outpatient (CLI) | payer MEDICARE, MEDICAID ==
[~2023-08-25] MED LIST changes: -ALBUTEROL SULFATE 2.5MG/0.5ML INH NEB SOLN INH PRN; -EPINEPHrine INJ 1 MG/ML 1ML AMP IM PRN; -NS 1,000 ML IV SCH; -diphenhydrAMINE 50MG/ML VIAL IV PRN; -methylPREDNISolone 125MG 2ML VIAL IV PRN
== END ==
LOC: M WHC 14:06
PROVIDERS: ATTEND Family Medicine
DX: Z12.31 Encounter for screening mammogram for malignant neoplasm of breast (principal)

== ENCOUNTER → 2023-09-12 | Outpatient (CLI) | payer MEDICARE, MEDICAID | LOC: M PLALAB 15:12 | PROVIDERS: ATTEND Family Medicine | DX: E55.9 Vitamin D deficiency, unspecified (principal) ==

== ENCOUNTER → 2023-09-19 | Outpatient (CLI) | payer MEDICARE, MEDICAID ==
[2023-09-19 17:22] LABS: INR 2.01; PROTHROMBIN TIME 22.1 SECONDS (12.5-14.5)
== END ==
LOC: M PLALAB 15:26
PROVIDERS: ATTEND Family Medicine
DX: Z79.01 Long term (current) use of anticoagulants (principal)

== ENCOUNTER → 2023-10-04 | Outpatient (CLI) | payer MEDICARE, MEDICAID | LOC: M SOG 13:01 | PROVIDERS: ATTEND Orthopaedic Surgery | DX: M17.0 Bilateral primary osteoarthritis of knee (principal) ==

== ENCOUNTER → 2023-10-16 | Outpatient (CLI) | payer MEDICARE, MEDICAID ==
[2023-10-16 12:55] LABS: INR 2.48; PROTHROMBIN TIME 25.9 SECONDS (12.5-14.5)
== END ==
LOC: M PLALAB 10:54
PROVIDERS: ATTEND Family Medicine
DX: Z79.01 Long term (current) use of anticoagulants (principal)

== ENCOUNTER → 2023-11-29 | Outpatient (CLI) | payer MEDICARE ==
[2023-11-29 15:21] LABS: INR 2.31; PROTHROMBIN TIME 24.6 SECONDS (12.5-14.5)
[2023-11-29 15:51] LABS: BASO # 0.1 10^3/uL (0.0-0.2); BASO % 0.7 % (0.0-1.0); EOS # 0.1 10^3/uL (0.0-0.5); EOS % 1.5 % (0.0-3.0); HEMATOCRIT 44.3 % (36.0-47.0); LYMPH # 4.2 10^3/uL (1.5-5.0); LYMPH % 46.4 % (24.0-44.0); MEAN CORPUSCULAR HEMOGLOBIN 27.8 pg (27.0-33.0); MEAN CORPUSCULAR HGB CONC 31.6 g/dl (32.0-36.5); MEAN CORPUSCULAR VOLUME 88.1 fl (80.0-96.0); MONO # 0.4 10^3/uL (0.0-0.8); MONO % 4.4 % (2.0-8.0); NEUTROPHILS # 4.3 10^3/uL (1.5-8.5); NEUTROPHILS % 46.9 % (36.0-66.0); PLATELET COUNT, AUTOMATED 254 10^3/uL (150-450); RED BLOOD COUNT 5.03 10^6/uL (4.00-5.40); WHITE BLOOD COUNT 9.1 10^3/uL (4.0-10.0)
[2023-11-29 16:15] LABS: ALKALINE PHOSPHATASE 221 U/L (46-116); ALT/SGPT 29 U/L (7.0-40); AST/SGOT 20 U/L (<34); BILIRUBIN,TOTAL 0.6 MG/DL (0.3-1.2); BLOOD UREA NITROGEN 13 MG/DL (9-23); CALCIUM LEVEL 8.5 MG/DL (8.3-10.6); CARBON DIOXIDE LEVEL 25 MMOL/L (20-31); CHLORIDE LEVEL 107 MMOL/L (98-107); CHOLESTEROL LEVEL 156 MG/DL (<200); CHOLESTEROL RISK RATIO 3.23 (<5); CREATININE FOR GFR 0.99 MG/DL (0.55-1.30); GLOMERULAR FILTRATION RATE > 60.0 (>45); GLUCOSE, FASTING 99 MG/DL (74-106); HDL CHOLESTEROL 48.2 MG/DL (>40); LDL CHOLESTEROL 64.6 MG/DL (<100); NON-HDL-C 107.8 MG/DL; POTASSIUM SERUM 3.9 MMOL/L (3.5-5.1); PTH INTACT 151.5 PG/ML (18.5-88.0); SODIUM LEVEL 141 MMOL/L (136-145); TOTAL PROTEIN 6.3 G/DL (5.7-8.2); TRIGLYCERIDES LEVEL 216 MG/DL (<150)
== END ==
LOC: M PLALAB 13:33
PROVIDERS: ATTEND Family Medicine
DX: E55.9 Vitamin D deficiency, unspecified (principal); D50.9 Iron deficiency anemia, unspecified; E78.5 Hyperlipidemia, unspecified; K76.0 Fatty (change of) liver, not elsewhere classified; Z79.01 Long term (current) use of anticoagulants

== ENCOUNTER → 2023-11-30 | Outpatient (REF) | payer MEDICARE, MEDICAID | LOC: M SFHCPLAZ 19:17 | PROVIDERS: ATTEND Family Medicine | DX: D50.9 Iron deficiency anemia, unspecified (principal); E55.9 Vitamin D deficiency, unspecified; M06.4 Inflammatory polyarthropathy; I10 Essential (primary) hypertension ==

== ENCOUNTER → 2023-12-12 | Outpatient (CLI) | payer MEDICARE | LOC: M PLALAB 15:15 | PROVIDERS: ATTEND Family Medicine | DX: Z13.71 Encounter for nonprocreative screening for genetic disease carrier status (principal); Z80.3 Family history of malignant neoplasm of breast ==

== ENCOUNTER → 2023-12-26 | Outpatient (CLI) | payer MEDICARE ==
[2023-12-26 17:24] LABS: INR 2.15; PROTHROMBIN TIME 23.2 SECONDS (12.5-14.5)
== END ==
LOC: M PLALAB 15:12
PROVIDERS: ATTEND Family Medicine
DX: Z79.01 Long term (current) use of anticoagulants (principal)

== ENCOUNTER → 2024-01-26 | Outpatient (CLI) | payer MEDICARE ==
[2024-01-26 17:13] LABS: BASO # 0.1 10^3/uL (0.0-0.2); BASO % 0.7 % (0.0-1.0); EOS # 0.2 10^3/uL (0.0-0.5); EOS % 2.4 % (0.0-3.0); HEMATOCRIT 45.5 % (36.0-47.0); HEMOGLOBIN 14.2 g/dl (12.0-15.5); LYMPH # 3.1 10^3/uL (1.5-5.0); LYMPH % 33.7 % (24.0-44.0); MEAN CORPUSCULAR HEMOGLOBIN 27.7 pg (27.0-33.0); MEAN CORPUSCULAR HGB CONC 31.2 g/dl (32.0-36.5); MEAN CORPUSCULAR VOLUME 88.9 fl (80.0-96.0); MONO # 0.3 10^3/uL (0.0-0.8); MONO % 3.2 % (2.0-8.0); NEUTROPHILS # 5.5 10^3/uL (1.5-8.5); NEUTROPHILS % 59.8 % (36.0-66.0); PLATELET COUNT, AUTOMATED 256 10^3/uL (150-450); RED BLOOD COUNT 5.12 10^6/uL (4.00-5.40); WHITE BLOOD COUNT 9.1 10^3/uL (4.0-10.0)
[2024-01-26 17:14] LABS: ALBUMIN 3.1 G/DL (3.2-5.2); ALKALINE PHOSPHATASE 210 U/L (46-116); ALT/SGPT 33 U/L (7.0-40); AST/SGOT 27 U/L (<34); BILIRUBIN,TOTAL 0.6 MG/DL (0.3-1.2); BLOOD UREA NITROGEN 14 MG/DL (9-23); CALCIUM LEVEL 8.5 MG/DL (8.3-10.6); CARBON DIOXIDE LEVEL 28 MMOL/L (20-31); CHLORIDE LEVEL 105 MMOL/L (98-107); GLOMERULAR FILTRATION RATE > 60.0 (>45); GLUCOSE, FASTING 129 MG/DL (74-106); POTASSIUM SERUM 3.9 MMOL/L (3.5-5.1); PTH INTACT 92.3 PG/ML (18.5-88.0); SODIUM LEVEL 138 MMOL/L (136-145); TOTAL PROTEIN 6.4 G/DL (5.7-8.2)
[2024-01-26 17:15] LABS: FREE T4 1.13 NG/DL (0.89-1.76); INR 2.24; THYROID STIMULATING HORMONE 2.952 uIU/ML (0.55-4.78)
[2024-01-26 17:16] LABS: FERRITIN 34.3 NG/ML (7.3-270.7)
[2024-01-26 17:22] LABS: ERYTHROCYTE SEDIMENTATION RATE 62 mm/hr (0-30)
== END ==
LOC: M PLALAB 14:29
PROVIDERS: ATTEND Family Medicine
DX: F32.9 Major depressive disorder, single episode, unspecified (principal); Z79.01 Long term (current) use of anticoagulants; Z80.3 Family history of malignant neoplasm of breast; D50.9 Iron deficiency anemia, unspecified

== ENCOUNTER 2024-02-01 09:51 | Outpatient (CLI) | payer MEDICARE ==
[~2024-02-01] VITALS: Ht 175.3 cm; Wt 129.5 kg
[2024-02-01 10:15] VITALS: BP 145/75; O2SAT 96
[2024-02-01] MEDS: ZOLEDRONIC ACID 5 MG in IV 1 EA IV ONE (10:21)
[2024-02-01 10:55] VITALS: BP 120/56; O2SAT 95
== END 2024-02-01 10:56 ==
LOC: M INFU 09:51
PROVIDERS: ATTEND Family Medicine
DX: M85.80 Other specified disorders of bone density and structure, unspecified site (principal); Z88.0 Allergy status to penicillin; Z88.1 Allergy status to other antibiotic agents; Z88.5 Allergy status to narcotic agent; Z88.2 Allergy status to sulfonamides; Z88.8 Allergy status to other drugs, medicaments and biological substances; Z91.89 Other specified personal risk factors, not elsewhere classified; Z91.040 Latex allergy status
CPT/HCPCS: 96365; J3489

== ENCOUNTER → 2024-04-02 | Outpatient (CLI) | payer MEDICARE, MEDICAID ==
[~2024-04-02] MED LIST changes: -ADV250INH INH; +ADVA1AER9 INH; -LEVA1.2519 NEB; +LEVA1.2526 NEB; +LEVA15HF2 INH; -LEVAINH INH; -POTA10808 PO; +POTA10809 PO
[2024-04-02 14:55] LABS: BASO # 0.1 10^3/uL (0.0-0.2); BASO % 0.7 % (0.0-1.0); EOS # 0.2 10^3/uL (0.0-0.5); EOS % 1.7 % (0.0-3.0); HEMATOCRIT 49.1 % (36.0-47.0); HEMOGLOBIN 15.5 g/dl (12.0-15.5); LYMPH # 4.1 10^3/uL (1.5-5.0); LYMPH % 34.6 % (24.0-44.0); MEAN CORPUSCULAR HEMOGLOBIN 27.9 pg (27.0-33.0); MEAN CORPUSCULAR HGB CONC 31.6 g/dl (32.0-36.5); MEAN CORPUSCULAR VOLUME 88.5 fl (80.0-96.0); MONO # 0.7 10^3/uL (0.0-0.8); MONO % 5.5 % (2.0-8.0); NEUTROPHILS # 6.8 10^3/uL (1.5-8.5); NEUTROPHILS % 57.3 % (36.0-66.0); PLATELET COUNT, AUTOMATED 261 10^3/uL (150-450); RED BLOOD COUNT 5.55 10^6/uL (4.00-5.40); WHITE BLOOD COUNT 11.9 10^3/uL (4.0-10.0)
[2024-04-02 15:26] LABS: ALBUMIN 3.1 G/DL (3.2-5.2); BILIRUBIN,TOTAL 0.6 MG/DL (0.3-1.2); CALCIUM LEVEL 9.1 MG/DL (8.3-10.6); CHOLESTEROL RISK RATIO 3.03 (<5); CREATININE FOR GFR 1.11 MG/DL (0.55-1.30); FERRITIN 51.4 NG/ML (7.3-270.7); FREE T4 1.5 NG/DL (0.89-1.76); GLOMERULAR FILTRATION RATE 52.5 (>45); HDL CHOLESTEROL 50.8 MG/DL (>40); LDL CHOLESTEROL 70.8 MG/DL (<100); NON-HDL-C 103.2 MG/DL; POTASSIUM SERUM 3.9 MMOL/L (3.5-5.1); PTH INTACT 327.5 PG/ML (18.5-88.0); THYROID STIMULATING HORMONE 0.379 uIU/ML (0.55-4.78); TOTAL 25(OH) VITAMIN D 50.1 NG/ML (20.0-100.0); TOTAL PROTEIN 6.9 G/DL (5.7-8.2)
[2024-04-02 15:28] LABS: INR 1.87; PROTHROMBIN TIME 21.7 SECONDS (12.5-14.5)
== END ==
LOC: M PLALAB 11:04
PROVIDERS: ATTEND Family Medicine
DX: D50.9 Iron deficiency anemia, unspecified (principal); E78.00 Pure hypercholesterolemia, unspecified

== ENCOUNTER → 2024-07-04 | Outpatient (CLI) | payer MEDICARE, MEDICAID ==
[~2024-07-04] MED LIST changes: -ADV500INH INH; +ADVA1AER10 INH
[2024-07-04 13:08] LABS: INR 1.52; PROTHROMBIN TIME 18.6 SECONDS (12.5-14.5)
[2024-07-04 13:56] LABS: BASO # 0.1 10^3/uL (0.0-0.2); BASO % 0.7 % (0.0-1.0); EOS # 0.2 10^3/uL (0.0-0.5); HEMATOCRIT 45.6 % (36.0-47.0); HEMOGLOBIN 14.3 g/dl (12.0-15.5); LYMPH # 3.9 10^3/uL (1.5-5.0); LYMPH % 42.8 % (24.0-44.0); MEAN CORPUSCULAR HEMOGLOBIN 27.8 pg (27.0-33.0); MEAN CORPUSCULAR HGB CONC 31.4 g/dl (32.0-36.5); MEAN CORPUSCULAR VOLUME 88.5 fl (80.0-96.0); MONO # 0.4 10^3/uL (0.0-0.8); NEUTROPHILS # 4.6 10^3/uL (1.5-8.5); NEUTROPHILS % 50.3 % (36.0-66.0); PLATELET COUNT, AUTOMATED 234 10^3/uL (150-450); RED BLOOD COUNT 5.15 10^6/uL (4.00-5.40); WHITE BLOOD COUNT 9.2 10^3/uL (4.0-10.0)
[2024-07-04 14:03] LABS: ALBUMIN 3.1 G/DL (3.2-5.2); ALKALINE PHOSPHATASE 189 U/L (35-104); ALT/SGPT 27 U/L (7.0-40); AST/SGOT 27 U/L (<34); BILIRUBIN,TOTAL 0.5 MG/DL (0.3-1.2); BLOOD UREA NITROGEN 13 MG/DL (9-23); CALCIUM LEVEL 9.2 MG/DL (8.3-10.6); CARBON DIOXIDE LEVEL 25 MMOL/L (20-31); CHLORIDE LEVEL 105 MMOL/L (98-107); CREATININE FOR GFR 0.95 MG/DL (0.55-1.30); GLOMERULAR FILTRATION RATE > 60.0 (>45); GLUCOSE, FASTING 112 MG/DL (74-106); POTASSIUM SERUM 3.8 MMOL/L (3.5-5.1); SODIUM LEVEL 142 MMOL/L (136-145); TOTAL PROTEIN 6.5 G/DL (5.7-8.2)
[2024-07-04 14:07] LABS: FERRITIN 21.6 NG/ML (7.3-270.7); THYROID STIMULATING HORMONE 0.088 uIU/ML (0.55-4.78)
[2024-07-04 14:08] LABS: TOTAL 25(OH) VITAMIN D 56.7 NG/ML (20.0-100.0); VITAMIN B12 LEVEL 903 PG/ML (211-911)
[2024-07-04 14:33] LABS: HEMOGLOBIN A1c 5.4 % (4.0-6.0)
[2024-07-08 16:02] LABS: ANA SCREEN, IFA POSITIVE (NEGATIVE); ANA TITER 1:40 titer (<1:40)
[2024-07-09 18:11] LABS: HLA-B27 Negative (Negative)
== END ==
LOC: M PLALAB 10:23
PROVIDERS: ATTEND Family Medicine
DX: M06.4 Inflammatory polyarthropathy (principal); E55.9 Vitamin D deficiency, unspecified; D50.9 Iron deficiency anemia, unspecified; I10 Essential (primary) hypertension; R73.01 Impaired fasting glucose; Z86.711 Personal history of pulmonary embolism

== ENCOUNTER → 2024-07-18 | Outpatient (CLI) | payer MEDICARE, MEDICAID ==
[2024-07-18 17:18] LABS: INR 2.43; PROTHROMBIN TIME 26.4 SECONDS (12.5-14.5)
== END ==
LOC: M PLALAB 16:13
PROVIDERS: ATTEND Family Medicine
DX: Z86.711 Personal history of pulmonary embolism (principal)

== ENCOUNTER → 2024-08-02 | Outpatient (CLI) | payer MEDICARE, MEDICAID ==
[2024-08-02 13:16] LABS: INR 2.51; PROTHROMBIN TIME 27.1 SECONDS (12.5-14.5)
== END ==
LOC: M PLALAB 10:39
PROVIDERS: ATTEND Family Medicine
DX: Z86.711 Personal history of pulmonary embolism (principal)

== ENCOUNTER → 2024-08-09 | Outpatient (REF) | payer MEDICARE, MEDICAID ==
[2024-08-09 19:00] LABS: APPEARANCE, URINE HAZY (CLEAR); BACTERIA, URINE AUTO 1+ (NEGATIVE); BILIRUBIN, URINE AUTO NEGATIVE (NEGATIVE); BLOOD, URINE BLOOD 1+ (NEGATIVE); COLOR, URINE YELLOW (YELLOW); GLUCOSE, URINE (UA) AUTO NEGATIVE (NEGATIVE); KETONE, URINE AUTO NEGATIVE (NEGATIVE); LEUKOCYTE ESTERASE, URINE AUTO 2+ (NEGATIVE); NITRITE, URINE AUTO NEGATIVE (NEGATIVE); PROTEIN, URINE AUTO NEGATIVE (NEGATIVE); RBC, URINE AUTO 2 /HPF (0-3); SPECIFIC GRAVITY URINE AUTO 1.011 (1.002-1.035); SQUAMOUS EPITHELIAL CELL UR AU 4 /HPF (0-6); UROBILINOGEN, URINE AUTO 0.2 mg/dL (0.0-2.0); WBC, URINE AUTO 52 /HPF (0-3)
== END ==
LOC: M LAB REF 18:40
PROVIDERS: ATTEND Student in an Organized Health Care Education/Training Program
DX: R39.15 Urgency of urination (principal)

== ENCOUNTER → 2024-09-05 | Outpatient (CLI) | payer MEDICARE, MEDICAID ==
[~2024-09-05] MED LIST changes: +PRED-1142 PO; -PRED1TABL PO
[2024-09-05 17:26] LABS: INR 1.77; PROTHROMBIN TIME 20.8 SECONDS (12.5-14.5)
== END ==
LOC: M PLALAB 16:05
PROVIDERS: ATTEND Family Medicine
DX: Z86.711 Personal history of pulmonary embolism (principal); Z79.01 Long term (current) use of anticoagulants

== ENCOUNTER → 2024-10-29 | Outpatient (CLI) | payer MEDICARE, MEDICAID ==
[2024-10-29 12:49] LABS: INR 2.25
== END ==
LOC: M PLALAB 10:39
PROVIDERS: ATTEND Family Medicine
DX: Z86.711 Personal history of pulmonary embolism (principal)

== ENCOUNTER → 2024-12-09 | Outpatient (CLI) | payer MEDICARE, MEDICAID ==
[2024-12-09 15:07] LABS: INR 2.27
== END ==
LOC: M PLALAB 12:36
PROVIDERS: ATTEND Family Medicine
DX: Z86.711 Personal history of pulmonary embolism (principal)

== ENCOUNTER → 2025-01-28 | Outpatient (CLI) | payer MEDICARE, MEDICAID ==
[2025-01-28 17:26] LABS: INR 1.6
== END ==
LOC: M PLALAB 15:57
PROVIDERS: ATTEND Family Medicine
DX: Z86.711 Personal history of pulmonary embolism (principal)

== ENCOUNTER → 2025-02-14 | Outpatient (CLI) | payer MEDICARE, MEDICAID ==
[2025-02-14 13:41] LABS: BASO # 0.1 10^3/uL (0.0-0.2); BASO % 0.9 % (0.0-1.0); EOS # 0.2 10^3/uL (0.0-0.5); EOS % 1.8 % (0.0-3.0); LYMPH # 4.8 10^3/uL (1.5-5.0); LYMPH % 51.5 % (24.0-44.0); MONO # 0.6 10^3/uL (0.0-0.8); MONO % 6.0 % (2.0-8.0); NEUTROPHILS # 3.7 10^3/uL (1.5-8.5); NEUTROPHILS % 39.7 % (36.0-66.0); PLATELET COUNT, AUTOMATED 273 10^3/uL (150-450)
[2025-02-14 13:47] LABS: INR 1.82
[2025-02-14 13:50] LABS: ESTIMATED AVERAGE GLUCOSE 117.0 MG/DL (60-110)
[2025-02-14 14:09] LABS: ALT/SGPT 21.0 U/L (7.0-40); AST/SGOT 24.0 U/L (<34); CALCIUM LEVEL 8.4 MG/DL (8.3-10.6); CARBON DIOXIDE LEVEL 28.0 MMOL/L (20-31); CHLORIDE LEVEL 105.0 MMOL/L (98-107); CHOLESTEROL LEVEL 159.0 MG/DL (<200); CHOLESTEROL RISK RATIO 2.87 (<5); CREATININE FOR GFR 0.91 MG/DL (0.55-1.30); GLOMERULAR FILTRATION RATE 70.0 (>45); LDL CHOLESTEROL 70.7 MG/DL (<100); NON-HDL-C 103.7 MG/DL; POTASSIUM SERUM 4.1 MMOL/L (3.5-5.1); PTH INTACT 209.6 PG/ML (18.5-88.0); SODIUM LEVEL 144.0 MMOL/L (136-145); TRIGLYCERIDES LEVEL 165.0 MG/DL (<150)
[2025-02-14 14:10] LABS: TOTAL 25(OH) VITAMIN D 43.0 NG/ML (20.0-100.0)
[2025-02-14 14:11] LABS: VITAMIN B12 LEVEL 1274.0 PG/ML (211-911)
[2025-02-14 14:12] LABS: FREE T4 0.99 NG/DL (0.89-1.76)
== END ==
LOC: M PLALAB 12:00
PROVIDERS: ATTEND Family Medicine
DX: I10 Essential (primary) hypertension (principal); R73.01 Impaired fasting glucose; E55.9 Vitamin D deficiency, unspecified; D50.9 Iron deficiency anemia, unspecified; Z86.711 Personal history of pulmonary embolism; E78.5 Hyperlipidemia, unspecified; M06.4 Inflammatory polyarthropathy

== ENCOUNTER 2025-03-14 14:13 | Outpatient (CLI) | payer MEDICARE, MEDICAID ==
[~2025-03-14] VITALS: Ht 172.7 cm; Wt 131.0 kg
[2025-03-14 14:40] VITALS: BP 123/56; O2SAT 97
[2025-03-14] MEDS: ZOLEDRONIC ACID 5 MG in IV 1 EA IV ONE (15:00)
[2025-03-14 15:34] VITALS: BP 119/67; O2SAT 97
== END 2025-03-14 15:35 | disposition home or self-care (01) ==
LOC: M INFU 14:13
PROVIDERS: ATTEND Family Medicine
DX: M85.88 Other specified disorders of bone density and structure, other site (principal); Z88.0 Allergy status to penicillin; Z88.1 Allergy status to other antibiotic agents; Z88.2 Allergy status to sulfonamides; Z88.5 Allergy status to narcotic agent; Z88.8 Allergy status to other drugs, medicaments and biological substances; Z91.89 Other specified personal risk factors, not elsewhere classified; Z91.040 Latex allergy status
CPT/HCPCS: 96413; J3489

== ENCOUNTER → 2025-04-09 | Outpatient (CLI) | payer MEDICARE, MEDICAID | LOC: M PLAIMG 13:00 | PROVIDERS: ATTEND Family Medicine | DX: I35.0 Nonrheumatic aortic (valve) stenosis (principal); Z86.711 Personal history of pulmonary embolism ==

== ENCOUNTER → 2025-04-09 | Outpatient (CLI) | payer MEDICARE, MEDICAID ==
[2025-04-09 15:53] LABS: INR 1.97
== END ==
LOC: M PLALAB 13:46
PROVIDERS: ATTEND Family Medicine
DX: Z86.711 Personal history of pulmonary embolism (principal)